=== PATIENT | male | born 1945 | race Caucasian/White ===

== ENCOUNTER → 2017-10-14 10:07 | Outpatient (CLI) | payer MEDICARE, OTHER, SELFPAY ==
--- NOTE | 2017-10-14 10:16 | XR_ITS ---
XR chest 2V HISTORY: ITS.REASON: COUGH ORDERING PHYSICIAN: Jazlyn Schilling PATIENT AGE: 72 years COMPARISON: None available FINDINGS: The cardiomediastinal silhouette and pulmonary vascularity are within normal limits. No lobar consolidation or collapse. There is mild biapical pleural thickening unchanged. There are degenerative changes in the thoracic spine fracture of the left humeral neck. IMPRESSION: No change with no acute finding.
== END ==
PROVIDERS: PCP Nurse Practitioner Family; Visit Provider Nurse Practitioner Family
DX: R05 Cough (principal)
CPT/HCPCS: 71046

== ENCOUNTER 2017-10-14 10:38 | Observation (INO) | payer MEDICARE, OTHER, SELFPAY ==
[2017-10-14] VITALS (8 sets, daily range): BP systolic 108–133; BP diastolic 68–79; PULSE 60–98; RESP 18–20; TEMP 36.6–37.2; O2SAT 90–98; BMI 21.8; BMI 22.3
--- NOTE | 2017-10-14 11:13 | CT_ITS ---
CT head/brain wo con HISTORY: Near syncope ITS.REASON: NEAR SYNCOPAL ORDERING PHYSICIAN: José Miguel Thomas MD PATIENT AGE: 72 years COMPARISON: 06/23/2016 TECHNIQUE: Axial images obtained without contrast. Brain and bone windows reviewed. FINDINGS: No midline shift, mass effect, intracranial hemorrhage, hydrocephalus, or extra-axial fluid collection is evident. There is generalized atrophy with periventricular ischemic gliotic change. The calvarium has an unremarkable appearance. No mastoid effusion. Bilateral maxillary sinus air-fluid levels are present along with mucosal thickening of the ethmoid sinuses... IMPRESSION: 1. No acute intracranial finding. 2. Sinusitis
--- NOTE | 2017-10-14 11:13 | HMH.EDWEAK ---
ED Disposition Clinical Impression: Orthostatic hypotension UTI (urinary tract infection) Qualifiers: Urinary tract infection type: acute cystitis Hematuria presence: without hematuria Qualified Code(s): N30.00 - Acute cystitis without hematuria Disposition: Admitted As Inpatient Condition on Discharge: Fair Time of Disposition: 13:20 - Critical Care Critical Care Time: No Attestation: On 10/14/17, the high probability of a clinically significant, sudden or life threatening deterioration of the following system(s) required my full and direct attention, intervention and personal management. The time I documented below is in addition to time spent performing reported procedures but includes the following listed in this critical care notation. Total Critical Care Time: 60 Vital system(s) involved:: Circulatory Failure My critical care processes included: Assessment & monitoring of V/S, Initial and Re-exams, Data Review/Interpretation, Coordinating Care, Medication Orders and management, Documentation Medical Decision Making - Medical Records Medical records reviewed: Yes: I reviewed the patient's medical records. Vital Signs: 10/14/17 10:40 10/14/17 13:08 10/14/17 13:25 Temperature 98.8 F Temperature Source Oral Pulse Rate [Right Radial] 92 H 88 98 H Respiratory Rate 20 20 20 Blood Pressure [Right Arm] 109/72 115/70 108/73 Blood Pressure Mean [Right Arm] 84 85 84 Blood Pressure Source [Right Arm] Automatic Cuff Automatic Cuff Blood Pressure Position [Right Arm] Sitting Sitting Sitting 02 Sat by Pulse Oximetry 98 98 97 Oxygen Delivery Method Room Air Room Air Room Air - Lab Data Lab results reviewed: Yes: I reviewed the patient's lab results. Lab Results 10/14/17 11:00: WBC 15.0 H, RBC 5.62, Hgb 16.5, Hct 49.9, MCV 88.8, MCH 29.3, MCHC 33.1, RDW 13.5, Plt Count 264, MPV 7.9, Neut % (Auto) 77.8, Lymph % (Auto) 12.8, [place] % (Auto) 7.5, Eos % (Auto) 1.5, Baso % (Auto) 0.4, Neut # (Auto) 11.7 H, Lymph # (Auto) 1.9, [place] # (Auto) 1.1 H, Eos # (Auto) 0.2, Baso # (Auto) 0.1, Total Counted 100, Neutrophils % (Manual) 80 H, Band Neutrophils % 3.0, Lymphocytes % (Manual) 12, Monocytes % (Manual) 5, Platelet Estimate Normal 10/14/17 11:00: Sodium 140, Potassium 3.4 L, Chloride 103, Carbon Dioxide 31, Anion Gap 9.4, BUN 24 H, Creatinine 1.60 H, Estimated Creat Clear 42, Estimated GFR 43 L, Est GFR ( Amer) 52 L, Glucose 111 H, Calcium 8.5, Total Bilirubin 0.8, AST 13 L, ALT 29, Alkaline Phosphatase 112, Total Creatine Kinase 44, CK-MB (CK-2) 0.7, CK-MB (CK-2) Rel Index 1.6, Troponin I < 0.02, Total Protein 6.3 L, Albumin 3.2 L, Globulin 3.1, Albumin/Globulin Ratio 1.0 L 10/14/17 11:00: Lactic Acid 1.5 10/14/17 12:45: Urine Color Yellow, Urine Appearance Clear, Urine pH 7.5, Ur Specific [place] 1.010, Urine Protein Negative, Urine Glucose (UA) Negative, Urine Ketones Negative, Urine Blood Negative, Urine Nitrate Negative, Urine Bilirubin Negative, Urine Urobilinogen 0.2, Ur Leukocyte Esterase 1+ A, Urine WBC 5-10, Urine Bacteria 1+, Hyaline Casts Occasional, Urine Mucus 1+ Result diagrams: 10/14/17 11:00 10/14/17 11:00 Orders (Tests/Meds): ED MEDICATIONS Generic Name Dose Route Start Last Admin Trade Name Promise PRN Reason Stop Dose Admin Allopurinol 100 mg 10/14/17 15:05 10/14/17 16:28 Allopurinol 100mg Tablet PO 11/13/17 15:04 100 mg DAILY MARCELLUS Administration Aspirin 81 mg 10/15/17 09:00 Aspirin 81mg Chewable Tablet PO 11/14/17 08:59 DAILY MARCELLUS Atorvastatin Calcium 40 mg 10/14/17 21:00 10/14/17 21:51 Lipitor 40mg Tablet PO 11/13/17 20:59 40 mg HS MARCELLUS Administration Clopidogrel Bisulfate 75 mg 10/15/17 09:00 Plavix 75mg Tablet PO 11/14/17 08:59 DAILY MARCELLUS Sodium Chloride 1,000 mls @ 50 mls/hr 10/14/17 15:05 10/14/17 15:58 Sod Chlor 0.9% 1000ml Bag IV 11/13/17 15:04 50 mls/hr .Q20H MARCELLUS Administration Levofloxacin/Dextrose 500 mg in 100 mls @ 100
--- NOTE | 2017-10-14 11:16 | ED_ITS ---
ED Disposition Clinical Impression: Orthostatic hypotension UTI (urinary tract infection) Qualifiers: Urinary tract infection type: acute cystitis Hematuria presence: without hematuria Qualified Code(s): N30.00 - Acute cystitis without hematuria Disposition: Admitted As Inpatient Condition on Discharge: Fair Time of Disposition: 13:20 - Critical Care Critical Care Time: No Attestation: On 10/14/17, the high probability of a clinically significant, sudden or life threatening deterioration of the following system(s) required my full and direct attention, intervention and personal management. The time I documented below is in addition to time spent performing reported procedures but includes the following listed in this critical care notation. Total Critical Care Time: 60 Vital system(s) involved:: Circulatory Failure My critical care processes included: Assessment & monitoring of V/S, Initial and Re-exams, Data Review/Interpretation, Coordinating Care, Medication Orders and management, Documentation Medical Decision Making - Medical Records Medical records reviewed: Yes: I reviewed the patient's medical records. Vital Signs: 10/14/17 10:40 10/14/17 13:08 10/14/17 13:25 Temperature 98.8 F Temperature Source Oral Pulse Rate [Right Radial] 92 H 88 98 H Respiratory Rate 20 20 20 Blood Pressure [Right Arm] 109/72 115/70 108/73 Blood Pressure Mean [Right Arm] 84 85 84 Blood Pressure Source [Right Arm] Automatic Cuff Automatic Cuff Blood Pressure Position [Right Arm] Sitting Sitting Sitting 02 Sat by Pulse Oximetry 98 98 97 Oxygen Delivery Method Room Air Room Air Room Air - Lab Data Lab results reviewed: Yes: I reviewed the patient's lab results. Lab Results 10/14/17 11:00: WBC 15.0 H, RBC 5.62, Hgb 16.5, Hct 49.9, MCV 88.8, MCH 29.3, MCHC 33.1, RDW 13.5, Plt Count 264, MPV 7.9, Neut % (Auto) 77.8, Lymph % (Auto) 12.8, [place] % (Auto) 7.5, Eos % (Auto) 1.5, Baso % (Auto) 0.4, Neut # (Auto) 11.7 H, Lymph # (Auto) 1.9, [place] # (Auto) 1.1 H, Eos # (Auto) 0.2, Baso # (Auto ) 0.1, Total Counted 100, Neutrophils % (Manual) 80 H, Band Neutrophils % 3.0, Lymphocytes % (Manual) 12, Monocytes % (Manual) 5, Platelet Estimate Normal 10/14/17 11:00: Sodium 140, Potassium 3.4 L, Chloride 103, Carbon Dioxide 31, Anion Gap 9.4, BUN 24 H, Creatinine 1.60 H, Estimated Creat Clear 42, Estimated GFR 43 L, Est GFR ( Amer) 52 L, Glucose 111 H, Calcium 8.5, Total Bilirubin 0.8, AST 13 L, ALT 29, Alkaline Phosphatase 112, Total Creatine Kinase 44, CK-MB (CK-2) 0.7, CK-MB (CK-2) Rel Index 1.6, Troponin I < 0.02, Total Protein 6.3 L, Albumin 3.2 L, Globulin 3.1, Albumin/Globulin Ratio 1.0 L 10/14/17 11:00: Lactic Acid 1.5 10/14/17 12:45: Urine Color Yellow, Urine Appearance Clear, Urine pH 7.5, Ur Specific [place] 1.010, Urine Protein Negative, Urine Glucose (UA) Negative, Urine Ketones Negative, Urine Blood Negative, Urine Nitrate Negative, Urine Bilirubin Negative, Urine Urobilinogen 0.2, Ur Leukocyte Esterase 1+ A, Urine WBC 5-10, Urine Bacteria 1+, Hyaline Casts Occasional, Urine Mucus 1+ Result diagrams: 10/14/17 11:00 10/14/17 11:00 Orders (Tests/Meds): ED MEDICATIONS Generic Name Dose Route Start Last Admin Trade Name Promise PRN Reason Stop Dose Admin Allopurinol 100 mg 10/14/17 15:05 10/14/17 16:28 Allopurinol 100mg Tablet PO 11/13/17 15:04 100 mg DAILY MARCELLUS Administration Aspirin 81 mg 10/15/17 09:00 Aspirin 81mg Chewable
[2017-10-14 11:30] LABS: Basophils # 0.1 K/mm3 (0-0.2); Basophils % 0.4 % (0.1-2.0); Eosinophils # 0.2 K/mm3 (0.0-0.4); Eosinophils % 1.5 % (0.1-12.0); Hematocrit 49.9 % (42.0-52.0); Hemoglobin 16.5 g/dL (14.1-18.0); Lymphocytes # 1.9 K/mm3 (0.7-4.5); Lymphocytes % 12.8 K/mm3 (10-50); Mean Corpuscular HGB Conc 33.1 g/dL (31.8-35.4); Mean Corpuscular Hemoglobin 29.3 pg (27.0-31.2); Mean Corpuscular Volume 88.8 fl (80-94); Mean Platelet Volume 7.9 fl (7.4-10.4); Monocytes # 1.1 K/mm3 (0.1-1.0); Monocytes % 7.5 % (1.7-9.3); Neutrophils # 11.7 K/mm3 (1.8-7.8); Neutrophils % 77.8 % (37.0-80.0); Platelet Count 264 K/mm3 (142-424); Red Blood Count 5.62 M/mm3 (4.60-6.20); Red Cell Distribution Width 13.5 % (11.5-17.5)
[2017-10-14 11:31] LABS: MANUAL DIFFERENTIAL MANUAL DIFFERENTIAL (MANUAL DIFF)
[2017-10-14 12:01] LABS: Alanine Aminotransferase 29 U/L (12-78); Albumin Level 3.2 gm/dL (3.4-5.0); Alkaline Phosphatase 112 U/L (46-116); Anion Gap 9.4 mEq/L (5-15); Aspartate Amino Transferase 13 U/L (15-37); Bilirubin,Total 0.8 mg/dL (0.2-1.0); Blood Urea Nitrogen 24 mg/dL (7-18); CKMB Relative Index 1.6 U/L (0-4.0); Calcium 8.5 mg/dL (8.5-10.1); Carbon Dioxide 31 mmol/L (21.0-32.0); Chloride 103 mmol/L (98-107); Creatine Kinase 44 U/L (39-308); Creatine Kinase MB 0.7 mg/ml (0.0-3.6); Creatinine Clearance Estimated 42 mL/min (0-300); Estimated Glomerular Filt Rate 43 ml/min (>60); GFR (African American) 52 ML/MIN (>60); Globulin 3.1 gm/dl (1.3-3.2); Glucose 111 mg/dL (74-106); Potassium 3.4 mmoL/L (3.5-5.1); Sodium 140 mmol/L (136-145); Total Protein,Serum 6.3 gm/dL (6.4-8.2); Troponin I < 0.02 ng/ml (0.00-0.06)
[2017-10-14 12:08] LABS: Lymphocytes % 12 % (10-50); Monocytes % 5 % (2-9); Neutrophils % 80 % (42-76); Platelet Estimate Normal; Total Cells Counted 100
[2017-10-14 12:30] LABS: Lactic Acid 1.5 mmol/L (0.4-2.0)
[2017-10-14 12:50] LABS: Microscopic, Urine URINE MICROSCOPIC (MICROSCOPIC)
[2017-10-14 12:51] LABS: Appearance,Urine CLEAR (Clear); Bilirubin,Urine Negative (Negative); Blood, Urine Negative (Negative); Color,Urine YELLOW (Yellow); Glucose,Urine (UA) Negative (Negative); Ketones,Urine Negative (Negative); Leukocyte Esterase,Urine 1+ (Negative); Nitrate,Urine Negative (Negative); PH,Urine 7.5 (5.0-8.5); Protein,Urine Negative (Negative); Urobilinogen,Urine 0.2 EU/dl (0.2)
[2017-10-14 13:04] LABS: Bacteria,Urine 1+ /lpf; Hyaline Casts,Urine Occasional #/lpf (0); Mucus,Urine 1+ /lpf
--- NOTE | 2017-10-14 13:24 | PC.NURSE ---
ORTHOSTATIC BLOOD PRESSURE ASSESSED AT 13:20 SITTING 115/70 HR 96 SUPINE 124/76 HR 92 STANDING 80/52 HR 100 MD MATTSON
--- NOTE | 2017-10-14 18:40 | PC.NURSE ---
72 YEAR OLD WHITE MALE PRESENTED TO THE ER AFTER HAVING A SYNCOPAL EPISODE DURING THE TIME HE WAS GETTING A CHEST X-RAY IN RADIOLOGY. HE WAS EVALUATED AND WAS DIAGNOSED WITH HYPOTENSION AND A UTI. HE WAS ADMITTED TO THE FLOOR AND IV FLUIDS ARE INFUSING ORDERED. LUNG ASSESSMENT REVEALS SCATTERED WHEEZES THROUGHOUT THE UPPER AND LOWER LEFT LUNG. HE STATES HE HAS A PRODUCTIVE COUGH WITH YELLOW SPUTUM. HE STATES HE HAS NEVER HAD A FLU OR PNEUMONIA SHOT, HE WAS EDUCATED ON THESE IMMUNIZATIONS. HE STATES HE CONTINUES TO SMOKE APPROXIMATELY 1/2 PACK OF CIGARETTES A DAY, HE WAS OFFERED A NICOTINE PATCH AND HE STATES HE DOES NOT NEED IT. WILL CONTINUE TO MONITOR. HIRO HERRERA, MSN, RN
--- NOTE | 2017-10-14 19:10 | PC.NURSE ---
PT FULL CODE, REPORT FROM TOM.NISA
[2017-10-15 04:16] VITALS: BP 117/75; PULSE 88; RESP 20; TEMP 36.6; O2SAT 97
--- NOTE | 2017-10-15 07:28 | HMH.PHAVTE ---
[facility] Pharmacy VTE Monitoring - Patient Demographics Admission date: 10/14/17 Report Date: 10/15/17 Time: 07:28 Allergies/Adverse Reactions: Patient Allergies Penicillins [PENICILLINS] Allergy (Severe, Verified 09/14/17 11:21) M-[id number]/THROAT azathioprine [From IMURAN] Allergy (Unknown, Verified 09/14/17 11:21) SKIN BLISTERS Height: 1.78 m Weight: 70.562 kg Patient Problems: Current Active Problems Orthostatic hypotension (Acute) UTI (urinary tract infection) (Acute) - VTE Risk Labs: VTE Related Lab Results Hgb 16.5 g/dL (14.1-18.0) 10/14/17 11:00 Hct 49.9 % (42.0-52.0) 10/14/17 11:00 Plt Count 264 K/mm3 (142-424) 10/14/17 11:00 BUN 24 mg/dL (7-18) H 10/14/17 11:00 Creatinine 1.60 mg/dL (0.70-1.30) H 10/14/17 11:00 Estimated Creat Clear 42 mL/min (0-300) 10/14/17 11:00 Was VTE Risk Assessment Performed: Yes VTE Score: 4 VTE Risk Level: Low Risk - Prophylaxis VTE Prophylaxis Ordered?: Yes Types of VTE Prophylaxis: TEDS Knee High Location of Applied Device: Bilateral Lower Extremeties - VTE Diagnosis Confirmed Treatment or plan recommended: Continue Current Treatment
[2017-10-15 07:38] VITALS: BP 136/85; PULSE 75; RESP 16; TEMP 36.3; O2SAT 99
[2017-10-15 09:20] LABS: Alanine Aminotransferase 20 U/L (12-78); Albumin Level 2.4 gm/dL (3.4-5.0); Albumin/Globulin Ratio 0.9 (1.1-1.8); Alkaline Phosphatase 88 U/L (46-116); Anion Gap 9.1 mEq/L (5-15); Aspartate Amino Transferase 10 U/L (15-37); Bilirubin,Total 0.8 mg/dL (0.2-1.0); Blood Urea Nitrogen 19 mg/dL (7-18); Calcium 7.9 mg/dL (8.5-10.1); Carbon Dioxide 30 mmol/L (21.0-32.0); Chloride 110 mmol/L (98-107); Creatinine Clearance Estimated 50 mL/min (0-300); Creatinine,Serum 1.37 mg/dL (0.70-1.30); Estimated Glomerular Filt Rate 51 ml/min (>60); GFR (African American) 62 ML/MIN (>60); Globulin 2.7 gm/dl (1.3-3.2); Glucose 109 mg/dL (74-106); Potassium 4.1 mmoL/L (3.5-5.1); Sodium 145 mmol/L (136-145); Total Protein,Serum 5.1 gm/dL (6.4-8.2)
[2017-10-15 09:22] LABS: Hematocrit 40.8 % (42.0-52.0); Mean Corpuscular Hemoglobin 29.9 pg (27.0-31.2); Mean Corpuscular Volume 90.6 fl (80-94); Mean Platelet Volume 8.2 fl (7.4-10.4); Platelet Count 214 K/mm3 (142-424); Red Blood Count 4.51 M/mm3 (4.60-6.20); Red Cell Distribution Width 13.6 % (11.5-17.5); White Blood Count 11.2 K/mm3 (4.8-10.8)
[2017-10-15 09:23] LABS: Basophils % 0.3 % (0.1-2.0); Eosinophils % 1.6 % (0.1-12.0); Lymphocytes % 20.2 K/mm3 (10-50); Monocytes % 8.2 % (1.7-9.3); Neutrophils # 7.8 K/mm3 (1.8-7.8); Neutrophils % 69.6 % (37.0-80.0)
[2017-10-15 09:24] LABS: Eosinophils # 0.2 K/mm3 (0.0-0.4); Lymphocytes # 2.3 K/mm3 (0.7-4.5); Monocytes # 0.9 K/mm3 (0.1-1.0)
[2017-10-15 09:27] LABS: Hemoglobin 13.5 g/dL (14.1-18.0)
--- NOTE | 2017-10-15 10:12 | PC.NURSE ---
PT IS RESTING IN BED, NO COMPLAINTS OF DISCOMFORT, VSS. PT STATED WHEN HE CAME IN YESTERDAY HE WAS FEELING REALLY ROUGH BUT TODAY HE STATES HE FEELS REALLY GOOD AND FEELS UP TO GOING HOME. LUNG SOUNDS HAVE SCATTERED WHEEZES, BOWEL SOUNDS NORMAL, TEDS APPLIED. PT STATES HE HAS BEEN AMBULATING AROUND THE ROOM WITH NO PROBLEM. WILL CONTINUE TO MONITOR.
--- NOTE | 2017-10-15 12:17 | HMH.PTEV ---
Physical Therapy Evaluation Rehab PT IP Evaluation Start: 10/15/17 09:12 Freq: ONCE Status: Active Protocol: Document 10/15/17 12:15 PHORNE (Rec: 10/15/17 12:17 PHORNE [id number]) Subjective/History History History 72 yom adm to [facility] with dizziness. Subjective Subjective Pt reports feeling much better this am, no c/o. Rehab PT IP Eval Objective Appearance Patient Behavior Appropriate Cooperative Patient Orientation Person Place Time Difficulty following instructions none Speech Pattern Clear Appropriate Ambulation Patient Able to Ambulate Yes Ambulation Observation IP General Gait Pattern Observation No Deviations/Normal Ambulation Distance (feet) 30 Ambulation Assistive Device None Balance Ability to Arise Able, w/o using arms Sitting Balance Steady, safe Standing Balance Narrow stance w/o support Dynamic Sitting Balance Ability Good Dynamic Standing Balance Ability Good Transfers Bed Transfer Ability Independent Chair Transfer Ability Supervision/Stand by Sit to Stand Bed Transfer Ability Supervision/Stand by Sit to Stand Chair Transfer Ability Supervision/Stand by ROM All Extremities PT ROM Status WFL MMT All Extremities PT MMT WFL Rehab PT IP prob,goals,plan Problems Date of Evaluation: 10/15/17 Discharge Plan PT Discharge Plan Pt is appropriate to return home once medically stable. G -code Required Yes Eval Complexity Eval Charge Codes 61824 - Moderate Complexity G Codes PT Current Status Mobility PT Current Status Modifier CI-At least 1% but less than 20% impaired, limited or restricted PT Goal Status Mobility PT Goal Status Modifer CI-At least 1% but less than 20% impaired, limited or restricted PHYSICIAN CERTIFICATION: I certify the specified therapy services for Jeffery Slater are required, authorized, and reviewed every 30 days.
--- NOTE | 2017-10-15 15:29 | HMH.HPDC ---
General - General Admission date: 10/14/17 Discharge date: 10/15/17 *Admission Date: 10/14/17 *Chief complaint: low bp *History of present illness: 72 yr old male Patient was sent to the hospital for a chest x-ray and while the radiology upon the patient almost passed out, became pale, diaphoretic and dizzy. He was brought to the emergency room for evaluation, where his blood pressure was found to be low, 56/20. Patient was recently diagnosed with pneumonia and he is still on Levaquin at this time. He continues to feel very weak, with poor appetite and decreased oral input.pt admitted for montior of bp and cardiology consult [facility] History I have reviewed the patient's past medical history: Yes Medical History: Reports:: Coronary Artery Disease, Hyperlipidemia, Hypertension, Myocardial Infarction Denies:: Cancer, Diabetes Mellitus Type 1, Diabetes Mellitus Type 2, MRSA Other Medical History: Reports: Arthritis Other Surgeries: Yes: Appendectomy Amputation: No Fractures: No - *Social History Educational Level: Completed High School Smoking Status: Current every day smoker Tobacco Type: cigarettes # Packs/Day (cigarettes): 1 Alcohol Intake: never Substance Use Type: denies use Occupational Status: retired Housing: house Household Members: spouse - Psychiatric History Expresses thoughts of harming self/others: None Suicide Plan Description: No Plan *Family Hx:: Heart Attack, Coronary Artery Disease Review of Systems - Constitutional Denies body ache(s) - Eyes Denies floaters - ENT Denies bleeding gums - *Cardiovascular Denies chest pain at rest, Denies rapid, pounding, or irregular heartbeat - *Respiratory Reports chest congestion, Reports cough - *Gastrointestinal Denies bloating - *Genitourinary Denies urinary frequency, Denies urinary urgency - *Musculoskeletal Denies joint pain - Integumentary/Breasts Denies rash - *Neurologic Reports weakness (generalized), Reports other (dizzy) Exam Vital signs and Labs for Last 24 Hours: Temp Pulse Resp BP Pulse Ox 97.3 F L 75 16 136/85 99 10/15/17 07:38 10/15/17 07:38 10/15/17 07:38 10/15/17 07:38 10/15/17 07:38 Laboratory Results - last 24 hr 10/15/17 08:56: WBC 11.2 H D, RBC 4.51 L, Hgb 13.5 L D, Hct 40.8 L, MCV 90.6, MCH 29.9, MCHC 33.0, RDW 13.6, Plt Count 214, MPV 8.2, Neut % (Auto) 69.6, Lymph % (Auto) 20.2, [place] % (Auto) 8.2, Eos % (Auto) 1.6, Baso % (Auto) 0.3, Neut # (Auto) 7.8, Lymph # (Auto) 2.3, [place] # (Auto) 0.9, Eos # (Auto) 0.2, Baso # (Auto) 0.0 10/15/17 08:56: Sodium 145, Potassium 4.1 D, Chloride 110 H, Carbon Dioxide 30, Anion Gap 9.1, BUN 19 H, Creatinine 1.37 H, Estimated Creat Clear 50, Estimated GFR 51 L, Est GFR ( Amer) 62, Glucose 109 H, Calcium 7.9 L, Total Bilirubin 0.8, AST 10 L, ALT 20 D, Alkaline Phosphatase 88, Total Protein 5.1 L, Albumin 2.4 L D, Globulin 2.7, Albumin/Globulin Ratio 0.9 L I & O for Last 24 hours: Intake & Output 10/13/17 10/14/17 10/15/17 10/16/17 11:59 11:59 11:59 11:59 Intake Total 3152 / 3152 Output Total 400 / 400 Balance 2752 / 2752 Weight 155 lb 9 oz - Constitutional no acute distress - *Routine HEENT Exam Head: Present: normocephalic Eye: Present: PERRL ENT: Present: mucous membranes moist - *Routine Neck Exam Present: supple, full ROM - *Routine Respiratory Exam Present: wheezes - *Routine Cardiovascular Exam Present: RRR - *Routine Abdominal Exam Present: soft - *Routine Skin Exam Present: intact - *Routine Neurological Exam Present: alert, oriented X3, CN II-XII intact - Routine Psychiatric Exam Present: normal affect Hospital Course Hospital Course: ct head IMPRESSION: 1. No acute intracranial finding. 2. Sinusitis cardiology consult- see note today pt states he feels better will dc home with cardiology recommendations Results Labs on day of discharge: Labs from last 24 hours 10/15/17 10/15/17 08
--- NOTE | 2017-10-15 15:32 | P.SWB_ITS ---
General - General Admission date: 10/14/17 Discharge date: 10/15/17 *Admission Date: 10/14/17 *Chief complaint: low bp *History of present illness: 72 yr old male Patient was sent to the hospital for a chest x-ray and while the radiology upon the patient almost passed out, became pale, diaphoretic and dizzy. He was brought to the emergency room for evaluation, where his blood pressure was found to be low, 56/20. Patient was recently diagnosed with pneumonia and he is still on Levaquin at this time. He continues to feel very weak, with poor appetite and decreased oral input.pt admitted for montior of bp and cardiology consult [facility] History I have reviewed the patient's past medical history: Yes Medical History: Reports:: Coronary Artery Disease, Hyperlipidemia, Hypertension , Myocardial Infarction Denies:: Cancer, Diabetes Mellitus Type 1, Diabetes Mellitus Type 2, MRSA Other Medical History: Reports: Arthritis Other Surgeries: Yes: Appendectomy Amputation: No Fractures: No - *Social History Educational Level: Completed High School Smoking Status: Current every day smoker Tobacco Type: cigarettes # Packs/Day (cigarettes): 1 Alcohol Intake: never Substance Use Type: denies use Occupational Status: retired Housing: house Household Members: spouse - Psychiatric History Expresses thoughts of harming self/others: None Suicide Plan Description: No Plan *Family Hx:: Heart Attack, Coronary Artery Disease Review of Systems - Constitutional Denies body ache(s) - Eyes Denies floaters - ENT Denies bleeding gums - *Cardiovascular Denies chest pain at rest, Denies rapid, pounding, or irregular heartbeat - *Respiratory Reports chest congestion, Reports cough - *Gastrointestinal Denies bloating - *Genitourinary Denies urinary frequency, Denies urinary urgency - *Musculoskeletal Denies joint pain - Integumentary/Breasts Denies rash - *Neurologic Reports weakness (generalized), Reports other (dizzy) Exam Vital signs and Labs for Last 24 Hours: Temp Pulse Resp BP Pulse Ox 97.3 F L 75 16 136/85 99 10/15/17 07:38 10/15/17 07:38 10/15/17 07:38 10/15/17 07:38 10/15/17 07:38 Laboratory Results - last 24 hr 10/15/17 08:56: WBC 11.2 H D, RBC 4.51 L, Hgb 13.5 L D, Hct 40.8 L, MCV 90.6, MCH 29.9, MCHC 33.0, RDW 13.6, Plt Count 214, MPV 8.2, Neut % (Auto) 69.6, Lymph % (Auto) 20.2, [place] % (Auto) 8.2, Eos % (Auto) 1.6, Baso % (Auto) 0.3, Neut # (Auto) 7.8, Lymph # (Auto) 2.3, [place] # (Auto) 0.9, Eos # (Auto) 0.2, Baso # (Auto) 0.0 10/15/17 08:56: Sodium 145, Potassium 4.1 D, Chloride 110 H, Carbon Dioxide 30 , Anion Gap 9.1, BUN 19 H, Creatinine 1.37 H, Estimated Creat Clear 50, Estimated GFR 51 L, Est GFR ( Amer) 62, Glucose 109 H, Calcium 7.9 L, Total Bilirubin 0.8, AST 10 L, ALT 20 D, Alkaline Phosphatase 88, Total Protein 5.1 L, Albumin 2.4 L D, Globulin 2.7, Albumin/Globulin Ratio 0.9 L I & O for Last 24 hours: Intake & Output 10/13/17 10/14/17 10/15/17 10/16/17 11:59 11:59 11:59 11:59 Intake Total 3152 / 3152 Output Total 400 / 400 Balance 2752 / 2752 Weight 155 lb 9 oz - Constitutional no acute distress - *Routine HEENT Exam Head: Present: normocephalic Eye: Present: PERRL ENT: Present: mucous membranes moist - *Routine Neck Exam Present: supple, full ROM - *Routine Respiratory Exam Present: wheezes
[2017-10-15 16:00] VITALS: BP 136/78; PULSE 86; RESP 16; TEMP 36.8; O2SAT 100
--- NOTE | 2017-10-15 16:50 | PC.NURSE ---
PT IS BEING DISCHARGED HOME WITH A 48 HOUR HOLTER MONITOR. PT UNDERSTOOD HE NEEDED TO CALL FOR A 1 WEEK F/U WITH [facility] AND HE NEEDED TO F/U WITH JENNY'S OFFICE ON WEDNESDAY. PT WAS TOLD TO HOLD BP MEDICATION FOR NOW.
== END 2017-10-15 17:00 | disposition home or self-care (01) ==
LOC: ER 11:16 → 2ND 15:30
PROVIDERS: Admitting Provider Emergency Medicine; Emergency Provider Emergency Medicine; PCP Nurse Practitioner Family; Visit Provider Emergency Medicine
DX: I95.1 Orthostatic hypotension (principal); N30.00 Acute cystitis without hematuria; I25.10 Atherosclerotic heart disease of native coronary artery without angina pectoris; E78.5 Hyperlipidemia, unspecified; I10 Essential (primary) hypertension; F17.210 Nicotine dependence, cigarettes, uncomplicated; J18.9 Pneumonia, unspecified organism; Z79.02 Long term (current) use of antithrombotics/antiplatelets; Z79.82 Long term (current) use of aspirin; Z79.899 Other long term (current) drug therapy; Z88.0 Allergy status to penicillin; Z88.8 Allergy status to other drugs, medicaments and biological substances; Z82.49 Family history of ischemic heart disease and other diseases of the circulatory system
CPT/HCPCS: 70450; 71046; 80053; 81001; 82550; 82553; 83605; 84484; 85007; 85025; 87040; 87086; 93005; 93225; 96365; 96366; 97162; 99281; G0378; J1956

== ENCOUNTER 2017-10-27 14:25 | Emergency (ER) | payer MEDICARE, OTHER, SELFPAY ==
[2017-10-27 14:26] VITALS: BP 124/87; PULSE 91; RESP 20; TEMP 36.6; O2SAT 100; BMI 22.2
--- NOTE | 2017-10-27 14:44 | CT_ITS ---
CT abdomen pelvis wo con CLINICAL INDICATION: Abdominal pain, unable to urinate ITS.REASON: abd pain ORDERING PHYSICIAN: Troy Luna MD PATIENT AGE: 72 years COMPARISON: 07/22/2016 TECHNIQUE: Axial images obtained with sagittal and coronal reformats. PROCEDURE: Oral Contrast: None IV Contrast: None . FINDINGS: No acute finding in the lung bases. Liver, spleen, adrenal glands, and pancreas have an unremarkable unenhanced CT appearance. There is moderate distention of the urinary bladder half of the urinary bladder extending above the level the umbilicus by approximately 2 cm. There is mild hydronephrosis and hydroureter bilaterally. There are nonobstructing punctate bilateral renal calculi measuring up to 4 mm in the upper pole on the right and 3 mm in the mid polar region on the left. No intestinal obstruction or free air. There has been prior appendectomy 5 report. No focal inflammatory change. No evidence of diverticulitis. There is mild amount retained colonic feces. Degenerative changes are present in the lumbar spine. Epidural gas noted in the right L4-5 foramen activity within an extruded disc. IMPRESSION: 1. Moderate to severe distention of the urinary bladder with bilateral hydroureteronephrosis. 2. Punctate nonobstructing bilateral renal calculi. 3. Gas within the neural foramen on the right at L4-5 and could be within an extruded disc
[2017-10-27 15:11] LABS: Microscopic, Urine URINE MICROSCOPIC (MICROSCOPIC)
[2017-10-27 15:14] LABS: Appearance,Urine CLEAR (Clear); Bilirubin,Urine Negative (Negative); Blood, Urine TRACE-I (Negative); Color,Urine YELLOW (Yellow); Glucose,Urine (UA) Negative (Negative); Ketones,Urine Negative (Negative); Leukocyte Esterase,Urine TRACE (Negative); Nitrate,Urine Negative (Negative); Protein,Urine Negative (Negative); Urobilinogen,Urine 0.2 EU/dl (0.2)
[2017-10-27 15:15] LABS: Basophils % 0.3 % (0.1-2.0); Eosinophils # 0.4 K/mm3 (0.0-0.4); Eosinophils % 6.6 % (0.1-12.0); Hematocrit 40.3 % (42.0-52.0); Hemoglobin 13.4 g/dL (14.1-18.0); Lymphocytes # 1.4 K/mm3 (0.7-4.5); Lymphocytes % 23.5 K/mm3 (10-50); Mean Corpuscular HGB Conc 33.2 g/dL (31.8-35.4); Mean Corpuscular Hemoglobin 29.2 pg (27.0-31.2); Mean Platelet Volume 8.6 fl (7.4-10.4); Monocytes # 0.4 K/mm3 (0.1-1.0); Monocytes % 6.5 % (1.7-9.3); Neutrophils # 3.8 K/mm3 (1.8-7.8); Neutrophils % 63.1 % (37.0-80.0); Platelet Count 226 K/mm3 (142-424); Red Blood Count 4.58 M/mm3 (4.60-6.20); Red Cell Distribution Width 13.4 % (11.5-17.5)
[2017-10-27 15:32] LABS: Alanine Aminotransferase 20 U/L (12-78); Albumin Level 2.8 gm/dL (3.4-5.0); Albumin/Globulin Ratio 0.7 (1.1-1.8); Alkaline Phosphatase 104 U/L (46-116); Anion Gap 9.6 mEq/L (5-15); Aspartate Amino Transferase 11 U/L (15-37); Bilirubin,Total 0.3 mg/dL (0.2-1.0); Blood Urea Nitrogen 16 mg/dL (7-18); Calcium 8.4 mg/dL (8.5-10.1); Carbon Dioxide 29 mmol/L (21.0-32.0); Chloride 106 mmol/L (98-107); Creatinine Clearance Estimated 40 mL/min (0-300); Creatinine,Serum 1.72 mg/dL (0.70-1.30); Estimated Glomerular Filt Rate 40 ml/min (>60); GFR (African American) 48 ML/MIN (>60); Globulin 4.1 gm/dl (1.3-3.2); Glucose 112 mg/dL (74-106); Potassium 3.6 mmoL/L (3.5-5.1); Sodium 141 mmol/L (136-145); Total Protein,Serum 6.9 gm/dL (6.4-8.2)
[2017-10-27 15:41] LABS: Bacteria,Urine Trace /lpf; RBC,Urine Occasional #/hpf (0-3); Squamous Epithelial Cell,Urine Occasional #/hpf (0-5); WBC,Urine Occasional #/hpf (0-3)
--- NOTE | 2017-10-27 16:06 | HMH.EDGENADL ---
ED Disposition Clinical Impression: Acute urinary retention, Balanitis Disposition: Home, Self-Care Condition on Discharge: Good Instructions: How to Care for Your Polo Catheter -- Male, DI for Urinary Retention in Men, DI for Balanitis Additional Instructions: Keep catheter in until seen by urologist. Call Dr. Edwards or Jarret tomorrow and set up an appointment to be seen within 1 week. Prescriptions: Clotrimazole [Lotrimin 1% Cream 15gm tube] 1 applic TOPICAL TID #30 cream..g. Referrals: Jazlyn Schilling APRN [Primary Care Provider] - Sushant Edwards MD [Staff Physician] - Albino Wheat MD [Staff Physician] - - Critical Care Critical Care Time: No Attestation: On 10/27/17, the high probability of a clinically significant, sudden or life threatening deterioration of the following system(s) required my full and direct attention, intervention and personal management. The time I documented below is in addition to time spent performing reported procedures but includes the following listed in this critical care notation. Medical Decision Making Vital Signs: 10/27/17 14:26 10/27/17 16:38 Temperature 97.8 F Temperature Source Oral Pulse Rate [Right Radial] 91 H 79 Respiratory Rate 20 18 Blood Pressure [Right Arm] 124/87 126/78 Blood Pressure Mean [Right Arm] 99 94 Blood Pressure Source [Right Arm] Automatic Cuff Automatic Cuff Blood Pressure Position [Right Arm] Supine Sitting 02 Sat by Pulse Oximetry 100 99 Oxygen Delivery Method Room Air Room Air - Lab Data Lab Results 10/27/17 15:00: Urine Color Yellow, Urine Appearance Clear, Urine pH 6.0, Ur Specific [place] 1.020, Urine Protein Negative, Urine Glucose (UA) Negative, Urine Ketones Negative, Urine Blood Trace-i, Urine Nitrate Negative, Urine Bilirubin Negative, Urine Urobilinogen 0.2, Ur Leukocyte Esterase Trace, Urine RBC Occasional, Urine WBC Occasional, Ur Squamous Epith Cells Occasional, Urine Bacteria Trace 10/27/17 15:00: WBC 6.0, RBC 4.58 L, Hgb 13.4 L, Hct 40.3 L, MCV 88.0, MCH 29.2, MCHC 33.2, RDW 13.4, Plt Count 226, MPV 8.6, Neut % (Auto) 63.1, Lymph % (Auto) 23.5, [place] % (Auto) 6.5, Eos % (Auto) 6.6, Baso % (Auto) 0.3, Neut # (Auto) 3.8, Lymph # (Auto) 1.4, [place] # (Auto) 0.4, Eos # (Auto) 0.4, Baso # (Auto) 0.0 10/27/17 15:00: Sodium 141, Potassium 3.6, Chloride 106, Carbon Dioxide 29, Anion Gap 9.6, BUN 16, Creatinine 1.72 H, Estimated Creat Clear 40, Estimated GFR 40 L, Est GFR ( Amer) 48 L, Glucose 112 H, Calcium 8.4 L, Total Bilirubin 0.3, AST 11 L, ALT 20, Alkaline Phosphatase 104, Total Protein 6.9 D, Albumin 2.8 L, Globulin 4.1 H, Albumin/Globulin Ratio 0.7 L Result diagrams: 10/27/17 15:00 10/27/17 15:00 Orders (Tests/Meds): ORDERS Category Date Time Status PSA Total+% Free Routine Lab 10/27/17 15:00 Received - Wong Inquiry Pt receiving controlled substance: No Medical Decision Making Narrative: Patient symptoms resolved with placement of Polo catheter. General Adult HPI - General Chief complaint: Abdominal Pain Stated complaint: can't urinate Mode of Arrival: Ambulatory Limitations: No Limitations Description of Symptoms (Recalled from ER Triage Doc. by RN): pt has not been able to urinate except for a dribble for over a week.abd distended and very firm , states he has been getting confused. pt d/c from hosp a week ago for hypotension. - History of Present Illness HPI narrative: The patient is brought in by his . She says he was admitted to the hospital here a little over week ago for syncopal episode while getting an outpatient chest x-ray for possible pneumonia. After discharge she says that he has been acting delirious at night. Also urinating every few minutes at night and complaining of some lower abdominal discomfort. Family has made him an appointment to see Dr. Wheat sometime in November. However, urinary symptoms and lower abdominal pain have worsened so she brings him in fo
[2017-10-27 16:38] VITALS: BP 126/78; PULSE 79; RESP 18; O2SAT 99
[2017-10-27 18:58] VITALS: BP 134/91; PULSE 89; RESP 18; TEMP 36.8
[2017-10-29 08:14] LABS: PSA, Free 0.71 ng/mL; Prostate Specific Ag 5.4 ng/mL (0.0-4.0)
== END 2017-10-27 18:58 | disposition home or self-care (01) ==
PROVIDERS: Emergency Provider Emergency Medicine; PCP Nurse Practitioner Family
DX: N48.1 Balanitis (principal); I95.1 Orthostatic hypotension; Z95.5 Presence of coronary angioplasty implant and graft; I25.10 Atherosclerotic heart disease of native coronary artery without angina pectoris; I10 Essential (primary) hypertension; E78.5 Hyperlipidemia, unspecified; I25.2 Old myocardial infarction; Z72.0 Tobacco use; Z79.899 Other long term (current) drug therapy; Z88.0 Allergy status to penicillin
CPT/HCPCS: 74176; 80053; 81001; 84153; 84154; 85025; 99284

== ENCOUNTER → 2017-11-01 08:31 | Outpatient (CLI) | payer MEDICARE, OTHER, SELFPAY ==
--- NOTE | 2017-11-01 08:33 | MR_ITS ---
MR head/brain wo con Ordering Physician: Jazlyn Schilling HISTORY: ITS.REASON: ALTERED MENTAL STATUS : 72 years: Male Dizziness for several years has gotten worse. Worse when he stands up. Near syncope. But does not pass out TECHNIQUE: : Noncontrast Multiplanar FLAIR, T1, T2 weighted images along with axial diffusion/ADC imaging performed on 1.5 T. Siemens, MRI. ) COMPARISON :Previous CT head October 14, 2017 FINDINGS . Normal anatomy. The cranial cervical junction is normal. Sella normal. Basal cisterns appear satisfactory. Ventricles normal size and matches the degree of cerebral atrophy. No territorial infarct. Mild diffuse cerebral atrophy. No extra-axial collection. No mass lesion. . A few tiny high signal deep white matter foci seen on the sensitive FLAIR images, mainly subcortical deep white matter. There is also a a rim of high signal surrounds the lateral ventricles most evident towards anterior horn-this in part reflect aging changes,, but also may reflect minor small vessel ischemic features along periventricular regions... Note is also made of scattered generous perivascular spaces. Basically normal variant although can reflect underlying hypertension.. For example small high signal T2 focus at right cerebral peduncle. And to lesser degree floor basal ganglia.. No associated gliosis. The posterior fossa appears normal. The CP angles clear. The cranial nerve VII and VIII appear satisfactory on this noncontrast study. Mastoid air cells unremarkable. Cerebellum unremarkable. Orbits unremarkable.. The paranasal sinuses are fairly clear. Only note minimal mucosal thickening at the medial superior right and left maxillary sinus. Only borderline mucosal thickening at a few of ethmoid air cells.. Survey images and [place] are grossly unremarkable on this routine, standard MR brain. Patent right posterior taking artery incidentally noted IMPRESSION: 1. Minor observations . No prominent findings. No acute findings 2.. Kvan-rd-tosnjsvs Cerebral atrophy. 3. Minimal chronic small vessel deep white matter ischemic foci & changes at cerebral hemispheres, . 4. No territorial infarct. No mass lesion. No extra-axial collection. 5. Regarding dizziness: Posterior fossa with no significant findings. CP angles clear.
--- NOTE | 2017-11-01 09:33 | CI_ITS ---
Cerebrovascular Exam Indications: 433.10 Occlusion/stenosis of carotid artery without cerebral infarction. 780.2 Syncope and collapse. 780.4 Dizziness and giddiness. IMPRESSIONS 1. The bilateral vertebral arteries are patent with normal antegrade flow. 2. Study suggests less than 20% stenosis involving the right internal carotid artery. 3. Study suggests 50-69% stenosis involving the left internal carotid artery. No change from the study of 12-May-2017. Carotid duplex study. Complete study and Doppler flow study including spectral analysis, color and [place]ckee scale imaging. Location: Vascular laboratory. Patient status: Outpatient. Tables: Arterial flow: + +--------+--------+ Location V sys V ed + +--------+--------+ Right CCA - proximal 63.6cm/s 17.3cm/s + +--------+--------+ Right CCA - distal 49.5cm/s 16.5cm/s + +--------+--------+ Right ECA 73.9cm/s -------- + +--------+--------+ Right ICA - proximal 40.1cm/s 16.5cm/s + +--------+--------+ Right ICA - mid 87.2cm/s 37.7cm/s + +--------+--------+ Right ICA - distal 102cm/s 39.3cm/s + +--------+--------+ Right vertebral 47.9cm/s -------- + +--------+--------+ Left CCA - proximal 63.6cm/s 18.9cm/s + +--------+--------+ Left CCA - distal 49.5cm/s 13.4cm/s + +--------+--------+ Left ECA 83.3cm/s -------- + +--------+--------+ Left ICA - proximal 141cm/s 57.4cm/s + +--------+--------+ Left ICA - mid 113cm/s 40.1cm/s + +--------+--------+ Left ICA - distal 80.9cm/s 24.4cm/s + +--------+--------+ Left vertebral 34.6cm/s -------- + +--------+--------+ Velocity ratios: + + + + + + Right, V sys Right, V ed Left, V sys Left, V ed + + + + + + Max ICA/dist CCA 2.06 2.38 2.85 4.28 + + + + + + Electronically signed by: Troy Romero [id number]
== END ==
PROVIDERS: PCP Nurse Practitioner Family; Visit Provider Nurse Practitioner Family
DX: R55 Syncope and collapse (principal); R40.1 Stupor
CPT/HCPCS: 70551; 93880

== ENCOUNTER → 2017-11-25 15:14 | Outpatient (CLI) | payer MEDICARE, OTHER, SELFPAY ==
[2017-11-25 16:34] LABS: Thyroid Stimulating Hormone 4.57 uIU/ml (0.358-3.740)
[2017-11-27 18:36] LABS: Rapid Plasma Reagin Ab Titer Non Reactive (NonRea<1:1)
[2017-11-27 18:36] LABS: Folate 6.7 ng/mL (>3.0); Vitamin B12 307 pg/mL (232-1245); Vitamin D 25 Hydroxy 9.9 ng/mL (30.0-100.0)
[2017-11-30 06:29] LABS: Vitamin B1 124.6 nmol/L (66.5-200.0)
== END ==
PROVIDERS: PCP Nurse Practitioner Family; Visit Provider Nurse Practitioner Family
DX: R41.3 Other amnesia (principal)
CPT/HCPCS: 36415; 82607; 82652; 82746; 84425; 84443; 86592

== ENCOUNTER 2017-12-04 10:09 | Emergency (ER) | payer MEDICARE, OTHER, SELFPAY ==
[2017-12-04 10:09] VITALS: BP 135/88; PULSE 84; RESP 98; TEMP 36.7; O2SAT 98; BMI 22.7
[2017-12-04 10:33] LABS: Microscopic, Urine URINE MICROSCOPIC (MICROSCOPIC)
[2017-12-04 10:36] LABS: Appearance,Urine TURBID (Clear); Bilirubin,Urine Negative (Negative); Blood, Urine 3+ (Negative); Color,Urine ORANGE (Yellow); Glucose,Urine (UA) Negative (Negative); Ketones,Urine Negative (Negative); Leukocyte Esterase,Urine TRACE (Negative); Nitrate,Urine Negative (Negative); Protein,Urine 2+ (Negative); Urobilinogen,Urine 0.2 EU/dl (0.2)
[2017-12-04 10:39] VITALS: BP 129/87; PULSE 90; RESP 18; O2SAT 97
[2017-12-04 10:43] LABS: Bacteria,Urine Trace /lpf; RBC,Urine 20-50 #/hpf (0-3); Squamous Epithelial Cell,Urine Occasional #/hpf (0-5); WBC,Urine Occasional #/hpf (0-3)
--- NOTE | 2017-12-04 10:56 | PC.NURSE ---
PAGES DR LIN AT THIS TIME
--- NOTE | 2017-12-04 10:58 | HMH.EDUROGM ---
ED Disposition Clinical Impression: Urinary retention, S/P TURP, Tobacco use disorder, CAD (coronary artery disease), Encounter for aspirin therapy Disposition: Home, Self-Care Condition on Discharge: Fair Instructions: DI for Urinary Tract Infection (UTI), DI for Urinary Tract Infection in Children Additional Instructions: 1- drink plenty of water. 2- empty leg bag q 6 hours or as needed. 3- start abx. 4- call Dr Wheat's office for follow up on Wednesday. 5- if fever, vomiting, or worse pain return to the ED ornelas re evaluation. Prescriptions: Nitrofurantoin Monohyd/M-Cryst [Macrobid 100 mg Capsule] 100 mg PO DAILY #7 cap Referrals: Jazlyn Schilling APRN [Primary Care Provider] - - Critical Care Critical Care Time: No Attestation: On 12/04/17, the high probability of a clinically significant, sudden or life threatening deterioration of the following system(s) required my full and direct attention, intervention and personal management. The time I documented below is in addition to time spent performing reported procedures but includes the following listed in this critical care notation. Medical Decision Making - Wong Inquiry Pt receiving controlled substance: No Wong was queried for this patient: No Vital Signs: 12/04/17 10:09 Temperature 98.1 F Temperature Source Oral Pulse Rate [Right Brachial] 84 Respiratory Rate 98 H Blood Pressure [Right Arm] 135/88 Blood Pressure Mean [Right Arm] 103 Blood Pressure Source [Right Arm] Automatic Cuff Blood Pressure Position [Right Arm] Sitting 02 Sat by Pulse Oximetry 98 Oxygen Delivery Method Room Air - Lab Data Lab Results 12/04/17 10:30: Urine Color [place], Urine Appearance Turbid, Urine pH 7.0, Ur Specific [place] 1.020, Urine Protein 2+, Urine Glucose (UA) Negative, Urine Ketones Negative, Urine Blood 3+, Urine Nitrate Negative, Urine Bilirubin Negative, Urine Urobilinogen 0.2, Ur Leukocyte Esterase Trace, Urine RBC 20-50, Urine WBC Occasional, Ur Squamous Epith Cells Occasional, Urine Bacteria Trace Medical Decision Narrative: The patient had marked relief after Polo catheter insertion. I called Dr. Wheat his urologist and spoke with Dr. tam the on-call surgeon. Who recommended the patient start on antibiotics and call the office in the morning to obtain a follow-up within 48 hours for catheter removal. I spoke with the patient about staying off the aspirin until the catheter is removed within the next 48 hours as planned. I advised the patient start antibiotics as soon as. The patient will observe for fever nausea vomiting or worse pain to return for evaluation. Male Urogenital HPI - General Chief complaint: Urogenital-Male Stated complaint: Can't urniate Time Seen by Provider: 12/04/17 10:30 Mode of Arrival: Wheelchair Limitations: No Limitations Description of Symptoms (Recalled from ER Triage Doc. by RN): Pt reports unable to urinate since 10pm lastnight. Pt reports had surgery on his prostate on 12/02/17 to shave down his prostate r/t it being enlarged. - History of Present Illness HPI Narrative: 9 years old white male who is 48 hours post TURP. Last time he urinated was at 10:30 PM, he is unable to urinate since 3:30 in the morning. He presented to the ED with a suprapubic pain that is rated 100/10, a Polo cath was immediately inserted with relief of the pain 2/10. Per the patient expression. He denies having fever or chills nausea or vomiting or flank pain. The patient is a status post coronary artery disease and stenting more than 1 year ago, and he is off his aspirin for the past 72 hours, he should resume his aspirin in 2 more the. Onset (ago): hour(s) (7 hours.) Duration: constant Location: abdomen (Suprapubic.) Severity scale (1-10): >10 Quality: dull Relieving factors: none Exacerbating factors: other (External suprapubic pressure. ) recent surgery (TURP surgery on 12/02/17. ) Reports: denies other symptoms
--- NOTE | 2017-12-04 11:01 | ED_ITS ---
ED Disposition Clinical Impression: Urinary retention, S/P TURP, Tobacco use disorder, CAD (coronary artery disease ), Encounter for aspirin therapy Disposition: Home, Self-Care Condition on Discharge: Fair Instructions: DI for Urinary Tract Infection (UTI), DI for Urinary Tract Infection in Children Additional Instructions: 1- drink plenty of water. 2- empty leg bag q 6 hours or as needed. 3- start abx. 4- call Dr Wheat's office for follow up on Wednesday. 5- if fever, vomiting, or worse pain return to the ED ornelas re evaluation. Prescriptions: Nitrofurantoin Monohyd/M-Cryst [Macrobid 100 mg Capsule] 100 mg PO DAILY #7 cap Referrals: Jazlyn Schilling APRN [Primary Care Provider] - - Critical Care Critical Care Time: No Attestation: On 12/04/17, the high probability of a clinically significant, sudden or life threatening deterioration of the following system(s) required my full and direct attention, intervention and personal management. The time I documented below is in addition to time spent performing reported procedures but includes the following listed in this critical care notation. Medical Decision Making - Wong Inquiry Pt receiving controlled substance: No Wong was queried for this patient: No Vital Signs: 12/04/17 10:09 Temperature 98.1 F Temperature Source Oral Pulse Rate [Right Brachial] 84 Respiratory Rate 98 H Blood Pressure [Right Arm] 135/88 Blood Pressure Mean [Right Arm] 103 Blood Pressure Source [Right Arm] Automatic Cuff Blood Pressure Position [Right Arm] Sitting 02 Sat by Pulse Oximetry 98 Oxygen Delivery Method Room Air - Lab Data Lab Results 12/04/17 10:30: Urine Color [place], Urine Appearance Turbid, Urine pH 7.0, Ur Specific [place] 1.020, Urine Protein 2+, Urine Glucose (UA) Negative, Urine Ketones Negative, Urine Blood 3+, Urine Nitrate Negative, Urine Bilirubin Negative, Urine Urobilinogen 0.2, Ur Leukocyte Esterase Trace, Urine RBC 20-50, Urine WBC Occasional, Ur Squamous Epith Cells Occasional, Urine Bacteria Trace Medical Decision Narrative: The patient had marked relief after Polo catheter insertion. I called Dr. Wheat his urologist and spoke with Dr. tam the on-call surgeon. Who recommended the patient start on antibiotics and call the office in the morning to obtain a follow-up within 48 hours for catheter removal. I spoke with the patient about staying off the aspirin until the catheter is removed within the next 48 hours as planned. I advised the patient start antibiotics as soon as. The patient will observe for fever nausea vomiting or worse pain to return for evaluation. Male Urogenital HPI - General Chief complaint: Urogenital-Male Stated complaint: Can't urniate Time Seen by Provider: 12/04/17 10:30 Mode of Arrival: Wheelchair Limitations: No Limitations Description of Symptoms (Recalled from ER Triage Doc. by RN): Pt reports unable to urinate since 10pm lastnight. Pt reports had surgery on his prostate on 12/02 to shave down his prostate r/t it being enlarged. - History of Present Illness HPI Narrative: 9 years old white male who is 48 hours post TURP. Last time he urinated was at 10:30 PM, he is unable to urinate since 3:30 in the morning. He presented to the ED with a suprapubic pain that is rated 100/10, a Polo cath was immediately inserted with relief of the pain 2/10. Per the patient expression. He denies having fever or chills nausea or vomi
[2017-12-04 11:28] VITALS: BP 123/80; PULSE 90; RESP 16; TEMP 36.8; O2SAT 94
--- NOTE | 2017-12-04 11:32 | PC.NURSE ---
schultz catheter bag empitied, leg bag placed on L leg.
== END 2017-12-04 11:30 | disposition home or self-care (01) ==
PROVIDERS: Emergency Provider Emergency Medicine; PCP Nurse Practitioner Family
DX: N40.1 Benign prostatic hyperplasia with lower urinary tract symptoms (principal); R33.8 Other retention of urine; I10 Essential (primary) hypertension; I25.10 Atherosclerotic heart disease of native coronary artery without angina pectoris; F17.210 Nicotine dependence, cigarettes, uncomplicated; Z79.82 Long term (current) use of aspirin; Z88.0 Allergy status to penicillin; E78.5 Hyperlipidemia, unspecified
CPT/HCPCS: 81001; 99283

== ENCOUNTER → 2018-02-22 12:59 | Outpatient (CLI) | payer MEDICARE, OTHER, SELFPAY ==
[2018-02-22 13:39] LABS: Basophils # 0.1 K/mm3 (0-0.2); Basophils % 0.6 % (0.1-2.0); Eosinophils # 0.5 K/mm3 (0.0-0.4); Eosinophils % 5.8 % (0.1-12.0); Hematocrit 52.1 % (42.0-52.0); Hemoglobin 16.3 g/dL (14.1-18.0); Lymphocytes # 2.1 K/mm3 (0.7-4.5); Lymphocytes % 26.3 K/mm3 (10-50); Mean Corpuscular HGB Conc 31.3 g/dL (31.8-35.4); Mean Corpuscular Hemoglobin 28.4 pg (27.0-31.2); Mean Corpuscular Volume 90.5 fl (80-94); Mean Platelet Volume 8.7 fl (7.4-10.4); Monocytes # 0.5 K/mm3 (0.1-1.0); Monocytes % 6.7 % (1.7-9.3); Neutrophils # 4.8 K/mm3 (1.8-7.8); Neutrophils % 60.5 % (37.0-80.0); Platelet Count 212 K/mm3 (142-424); Red Blood Count 5.76 M/mm3 (4.60-6.20); Red Cell Distribution Width 14.1 % (11.5-17.5); White Blood Count 7.9 K/mm3 (4.8-10.8)
[2018-02-22 17:07] LABS: Anion Gap 11.2 mEq/L (5-15); Blood Urea Nitrogen 12 mg/dL (7-18); Calcium 9.3 mg/dL (8.5-10.1); Carbon Dioxide 30 mmol/L (21.0-32.0); Chloride 104 mmol/L (98-107); Creatinine,Serum 1.61 mg/dL (0.70-1.30); Estimated Glomerular Filt Rate 43 ml/min (>60); GFR (African American) 52 ML/MIN (>60); Glucose 105 mg/dL (74-106); Potassium 4.2 mmoL/L (3.5-5.1); Sodium 141 mmol/L (136-145)
== END ==
PROVIDERS: PCP Nurse Practitioner Family; Visit Provider Physician Assistant
DX: I25.10 Atherosclerotic heart disease of native coronary artery without angina pectoris (principal); I49.3 Ventricular premature depolarization; R00.2 Palpitations; N18.3 Chronic kidney disease, stage 3 (moderate); E78.4 Other hyperlipidemia; Z95.5 Presence of coronary angioplasty implant and graft
CPT/HCPCS: 36415; 80048; 83735; 85025; 93225; 93226

== ENCOUNTER → 2018-03-04 09:01 | Outpatient (CLI) | payer MEDICARE, OTHER, SELFPAY ==
[2018-03-04 14:23] LABS: Anion Gap 11.6 mEq/L (5-15); Blood Urea Nitrogen 15 mg/dL (7-18); Calcium 9.8 mg/dL (8.5-10.1); Carbon Dioxide 30 mmol/L (21.0-32.0); Chloride 103 mmol/L (98-107); Creatinine,Serum 1.58 mg/dL (0.70-1.30); Estimated Glomerular Filt Rate 44 ml/min (>60); GFR (African American) 53 ML/MIN (>60); Glucose 152 mg/dL (74-106); Potassium 4.6 mmoL/L (3.5-5.1); Sodium 140 mmol/L (136-145)
== END ==
PROVIDERS: PCP Nurse Practitioner Family; Visit Provider Physician Assistant
DX: I49.3 Ventricular premature depolarization (principal); R00.2 Palpitations; N18.3 Chronic kidney disease, stage 3 (moderate); E78.4 Other hyperlipidemia; Z95.5 Presence of coronary angioplasty implant and graft
CPT/HCPCS: 36415; 80048

== ENCOUNTER → 2018-06-14 12:52 | Outpatient (CLI) | payer MEDICARE, OTHER, SELFPAY ==
--- NOTE | 2018-06-14 12:58 | XR_ITS ---
XR chest 2V HISTORY: Cough and congestion, current smoker ITS.REASON: PNEUMONIA ORDERING PHYSICIAN: Jazlyn Schilling PATIENT AGE: 72 years COMPARISON: None FINDINGS: Unremarkable cardiovascular structures. There is mild biapical pleural thickening with chronic coarsening of the bronchovascular markings. No lobar consolidation or collapse. Left humeral neck fracture. No acute bony findings. Degenerative changes are present in the thoracic spine. IMPRESSION: COPD, no change with no acute finding
== END ==
PROVIDERS: PCP Nurse Practitioner Family; Visit Provider Nurse Practitioner Family
DX: J16.8 Pneumonia due to other specified infectious organisms (principal)
CPT/HCPCS: 71046

== ENCOUNTER 2018-06-22 14:51 | Observation (INO) ==
[2018-06-22 15:24] LABS: Basophils # 0.1 K/mm3 (0-0.2); Basophils % 0.5 % (0.1-2.0); Eosinophils % 0.1 % (0.1-12.0); Hematocrit 42.8 % (42.0-52.0); Lymphocytes # 1.9 K/mm3 (0.7-4.5); Lymphocytes % 8.6 K/mm3 (10-50); Mean Corpuscular HGB Conc 32.7 g/dL (31.8-35.4); Mean Corpuscular Hemoglobin 29.4 pg (27.0-31.2); Mean Corpuscular Volume 90.1 fl (80-94); Mean Platelet Volume 7.8 fl (7.4-10.4); Monocytes # 2.1 K/mm3 (0.1-1.0); Monocytes % 9.5 % (1.7-9.3); Neutrophils % 81.2 % (37.0-80.0); Platelet Count 365 K/mm3 (142-424); Red Blood Count 4.75 M/mm3 (4.60-6.20); Red Cell Distribution Width 13.7 % (11.5-17.5); White Blood Count 22.2 K/mm3 (4.8-10.8)
[2018-06-22 15:33] LABS: Albumin/Globulin Ratio 0.7 (1.1-1.8); Anion Gap 10.9 mEq/L (5-15); Bilirubin,Total 0.5 mg/dL (0.2-1.0); Calcium 8.6 mg/dL (8.5-10.1); Globulin 4.2 gm/dl (1.3-3.2); Potassium 3.9 mmoL/L (3.5-5.1); Total Protein,Serum 7.2 gm/dL (6.4-8.2)
[2018-06-22 16:00] LABS: Lymphocytes % 10 % (10-50); Monocytes % 7 % (2-9); Neutrophils % 83 % (42-76); Total Cells Counted 100
[2018-06-22 16:08] LABS: RBC Morphology Normal
--- NOTE | 2018-06-22 16:15 | Emergency Department Note ---
ED Disposition Clinical Impression: Leukocytosis Qualifiers: Leukocytosis type: unspecified Qualified Code(s): D72.829 - Elevated white blood cell count, unspecified Disposition: Admitted as Observation Condition on Discharge: Fair Referrals: Jazlyn Schilling APRN [Primary Care Provider] - Time of Disposition: 20:39 - Critical Care Critical Care Time: No Attestation: On 06/22/18, the high probability of a clinically significant, sudden or life threatening deterioration of the following system(s) required my full and direct attention, intervention and personal management. The time I documented below is in addition to time spent performing reported procedures but includes the following listed in this critical care notation. Medical Decision Making - Medical Records Medical records reviewed: Yes: I reviewed the patient's medical records. - Wong Inquiry Pt receiving controlled substance: No Wong was queried for this patient: No Vital Signs: 06/22/18 14:59 06/22/18 15:41 06/22/18 15:58 Temperature 97.6 F Temperature Source Oral Pulse Rate [Right Brachial] 96 H 105 H 96 H Respiratory Rate 18 Blood Pressure [Right Arm] 106/52 L 94/52 L 100/57 L Blood Pressure Mean [Right Arm] 70 66 71 Blood Pressure Source [Right Arm] Automatic Cuff Automatic Cuff Automatic Cuff Blood Pressure Position [Right Arm] Sitting Sitting Sitting 02 Sat by Pulse Oximetry 97 100 100 Oxygen Delivery Method Room Air Nasal Cannula Nasal Cannula Oxygen Flow Rate (LPM) 2 2 06/22/18 17:44 06/22/18 18:18 06/22/18 18:21 Temperature Temperature Source Pulse Rate [Right Brachial] 93 H 90 93 H Respiratory Rate 99 H Blood Pressure [Right Arm] 117/65 119/69 119/68 Blood Pressure Mean [Right Arm] 82 85 85 Blood Pressure Source [Right Arm] Automatic Cuff Automatic Cuff Automatic Cuff Blood Pressure Position [Right Arm] Sitting Sitting Sitting 02 Sat by Pulse Oximetry 100 100 100 Oxygen Delivery Method Nasal Cannula Nasal Cannula Nasal Cannula Oxygen Flow Rate (LPM) 2 2 2 06/22/18 18:44 06/22/18 19:13 06/22/18 19:30 Temperature Temperature Source Pulse Rate [Right Brachial] 90 87 86 Respiratory Rate 18 16 18 Blood Pressure [Right Arm] 113/70 118/69 151/74 H Blood Pressure Mean [Right Arm] 84 85 99 Blood Pressure Source [Right Arm] Automatic Cuff Automatic Cuff Automatic Cuff Blood Pressure Position [Right Arm] Sitting Supine Supine 02 Sat by Pulse Oximetry 98 100 100 Oxygen Delivery Method Room Air Nasal Cannula Nasal Cannula Oxygen Flow Rate (LPM) 2 2 06/22/18 20:00 Temperature Temperature Source Pulse Rate [Right Brachial] 88 Respiratory Rate 18 Blood Pressure [Right Arm] 158/96 H Blood Pressure Mean [Right Arm] 116 Blood Pressure Source [Right Arm] Automatic Cuff Blood Pressure Position [Right Arm] Supine 02 Sat by Pulse Oximetry 100 Oxygen Delivery Method Nasal Cannula Oxygen Flow Rate (LPM) 2 - Lab Data Lab results reviewed: Yes: I reviewed the patient's lab results. Lab Results 06/22/18 15:10: WBC 22.2 H*, RBC 4.75, Hgb 14.0 L, Hct 42.8, MCV 90.1, MCH 29.4, MCHC 32.7, RDW 13.7, Plt Count 365, MPV 7.8, Neut % (Auto) 81.2 H, Lymph % (Auto) 8.6 L, [place] % (Auto) 9.5 H, Eos % (Auto) 0.1, Baso % (Auto) 0.5, Neut # (Auto) 18.0 H, Lymph # (Auto) 1.9, [place] # (Auto) 2.1 H, Eos # (Auto) 0.0, Baso # (Auto) 0.1, Total Counted 100, Neutrophils % (Manual) 83 H, Lymphocytes % (Manual) 10, Monocytes % (Manual) 7, Platelet Estimate Normal, RBC Morphology Normal 06/22/18 15:10: Sodium 137, Potassium 3.9, Chloride 101, Carbon Dioxide 29, Anion Gap 10.9, BUN 44 H, Creatinine 2.76 H, Estimated Creat Clear 25, Estimated GFR 23 L, Est GFR ( Amer) 28 L, Glucose 66 L, Calcium 8.6, Total Bilirubin 0.5, AST 15, ALT 23, Alkaline Phosphatase 101, Total Protein 7.2, Albumin 3.0 L, Globulin 4.2 H, Albumin/Globulin Ratio 0.7 L 06/22/18 16:45: Lactate 0.8 06/22/18 19:10: Troponin I < 0.02 06/22/18 19:30: Urine Color Yellow, Urine Appearance Clear, Urine pH 5.5, Ur Specific [place] >= 1.030, Urine Protein Negative, Urine Glucose (UA) Negative, Urine Ketones Trace, Urine Blood Negative, Urine Nitrate Negative, Urine Bilirubin Negative, Urine Urobilinogen 1.0, Ur Leukocyte Esterase Negative, Urine RBC None, Urine WBC 3-5, Ur Squamous Epith Cells 5-10, Urine Bacteria 1+ Result diagrams: 06/22/18 15:10 06/22/18 15:10 Orders (Tests/Meds): ED MEDICATIONS Discontinued Medications Generic Name Dose Route Start Last Admin Trade Name Freq PRN Reason Stop Dose Admin Sodium Chloride 1,000 mls @ 999 mls/hr 06/22/18 15:30 06/22/18 15:31 Sod Chlor 0.9% 1000ml Bag IV 06/22/18 16:30 999 mls/hr .Q1H1M MARCELLUS Administration Sodium Chloride 1,000 mls @ 999 mls/hr 06/22/18 19:30 06/22/18 19:29 Sod Chlor 0.9% 1000ml Bag IV 06/22/18 20:30 999 mls/hr .Q1H1M MARCELLUS Administration ORDERS Category Date Time Status CT head/brain wo con Stat Cat Scan 06/22/18 20:21 Ordered Chest XR -- portable [XR chest portable] Stat Exams 06/22/18 15:28 Taken Urinalysis and Microscopic Stat Lab 06/22/18 19:30 Ordered Blood Culture Stat Micro 06/22/18 16:45 Received Arterial Blood Gas Routine RT 06/22/18 17:40 Received Arterial Blood Gas Stat RT 06/22/18 17:42 Ordered - Radiology Data #1 Image(s): Chest Image Reviewed: Yes I reviewed the patient's radiology results, Yes I reviewed the patient's radiology image Preliminary Findings: Normal/NAD - CT Data CT Scan: Head Time Received: 20:[address] Reviewed: Yes: I have reviewed the patient's CT results Preliminary Findings: Normal/NAD Dizzy HPI - General Chief Complaint: Dizziness Stated Complaint: light headed, loss of appetite Time Seen by Provider: 06/22/18 16:15 Mode of Arrival: Wheelchair Limitations: No Limitations Description of Symptoms (Recalled from ER Triage Doc. by RN): Pt reports loss of appetite, states pt did not eat anything yesterday. states pt has c/o being dizzy today. - History of Present Illness HPI Narrative: Patient comes to the emergency room with complaints of dizziness that he has had for the last 3-4 months normally sees aJzlyn Schilling at the [facility] does not have a local physician here he has a history of hypertension coronary artery disease and has had 3 stents placed in the heart and is on Plavix and according to the family has been on Plavix for about 2 years he also continues to smoke a pack per day. He is allergic to penicillin and azathioprine MD complaint: dizziness Onset (ago): month(s) - Related Data Home Medications Medication Instructions Recorded Confirmed atorvastatin 40 mg tablet 40 mg PO HS 09/14/17 06/22/18 Amitriptyline HCl [Elavil 50mg 50 - 100 mg PO HS 10/14/17 06/22/18 tablet] Aspirin [Aspirin 81mg chewable 81 mg PO DAILY 10/14/17 06/22/18 tab] Diclofenac Sodium [Diclofenac 75mg 75 mg PO BID 06/22/18 06/22/18 Tab] Donepezil HCl [Aricept 10mg tablet] 10 mg PO QHS 06/22/18 06/22/18 Levothyroxine Sodium [Synthroid 50 mcg PO DAILY 06/22/18 06/22/18 50mcg (0.05mg) tab] Losartan Potassium [Cozaar] 25 mg PO DAILY 06/22/18 06/22/18 levoFLOXacin [Levaquin 500mg 500 mg PO DAILY 06/22/18 06/22/18 tab] Previous Rx's Medication Instructions Recorded clopidogrel 75 mg tablet 75 mg PO DAILY 90 Days #90 tab 04/21/18 Allergies Allergy/AdvReac Type Severity Reaction Status Date / Time Penicillins [PENICILLINS] Allergy Severe S-SWELLS-OR Verified 05/03/18 11:39 AL/THROAT azathioprine [From IMURAN] Allergy Unknown SKIN Verified 05/03/18 11:39 BLISTERS [facility] History I have reviewed the patient's past medical history: Yes Medical History: Reports:: Coronary Artery Disease, Hyperlipidemia, Hypertension, Myocardial Infarction Denies:: Cancer, Diabetes Mellitus Type 1, Diabetes Mellitus Type 2, MRSA Other Medical History: Reports: Arthritis Other Surgeries: Yes: Appendectomy, Cardiac Catheterization Amputation: No Fractures: No Comment: turbt - Social History Smoking Status: Current every day smoker Tobacco Type: cigarettes # Packs/Day (cigarettes): 1 #Yrs smoked (if former smoker): 55 Alcohol Intake: never Alcohol Intake Frequency:: other Substance Use Type: denies use Occupational Status: retired Housing: house Household Members: spouse - Psychiatric History Expresses thoughts of harming self/others: None Suicide Plan Description: No Plan Family Hx:: Heart Attack, Coronary Artery Disease ROS Obtained: Yes All systems reviewed & no additional complaints - Constitutional Constitutional: Reports system reviewed and no additional complaints, except as docu - Neurologic Neurologic: Reports system reviewed and no additional complaints, except as d ocu, Reports as per HPI Physical Exam - General General appearance: alert, in no apparent distress - Head Head exam: atraumatic - Eye Eye exam: Present: normal appearance - ENT ENT exam: Present: normal exam - Neck Neck exam: Present: normal inspection - Chest Chest inspection: Present: normal inspection - Respiratory Respiratory exam: Present: normal lung sounds bilaterally - Cardiovascular Cardiovascular exam: Present: regular rate (He is in sinus rhythm with frequent PVCs and a pattern of bigeminy and also has right bundle branch block) - Abdominal Exam Abdominal exam: Present: soft - Neurological Exam Neurological exam: Present: alert, oriented X3 (But according to his family he has a history of dementia and is on donepezil) - Psychiatric Psychiatric exam: Present: normal affect
[2018-06-22 19:36] LABS: Microscopic, Urine URINE MICROSCOPIC (MICROSCOPIC)
[2018-06-22 19:39] LABS: Appearance,Urine CLEAR (Clear); Bilirubin,Urine Negative (Negative); Blood, Urine Negative (Negative); Color,Urine YELLOW (Yellow); Glucose,Urine (UA) Negative (Negative); Ketones,Urine TRACE (Negative); Leukocyte Esterase,Urine Negative (Negative); PH,Urine 5.5 (5.0-8.5); Protein,Urine Negative (Negative); Specific Gravity, Urine >= 1.030 (1.005-1.030)
[2018-06-22 20:28] LABS: Bacteria,Urine 1+ /lpf
--- NOTE | 2018-06-22 22:33 | History & Physical Report ---
*Admission Date: 06/22/18 *Chief complaint: dizzyness *History of present illness: this wm who has had increasing episodes of dizzyness atient comes to the emergency room with complaints of dizziness that he has had for the last 3-4 months normally sees Jazlyn Schilling at the [facility] does not have a local physician here he has a history of hypertension coronary artery disease and has had 3 stents placed in the heart and is on Plavix and according to the family has been on Plavix for about 2 years he also continues to smoke a pack per day. [facility] History I have reviewed the patient's past medical history: Yes Medical History: Reports:: Coronary Artery Disease, Hyperlipidemia, Hypertension, Myocardial Infarction Denies:: Cancer, Diabetes Mellitus Type 1, Diabetes Mellitus Type 2, MRSA Other Medical History: Reports: Arthritis Other Surgeries: Yes: Appendectomy, Cardiac Catheterization Amputation: No Fractures: No - *Social History Educational Level: Completed High School Smoking Status: Current every day smoker Tobacco Type: cigarettes # Packs/Day (cigarettes): 5 #Yrs smoked (if former smoker): 55 Alcohol Intake: never Alcohol Intake Frequency:: other Substance Use Type: denies use Occupational Status: retired Housing: house Household Members: spouse - Psychiatric History Expresses thoughts of harming self/others: None Suicide Plan Description: No Plan *Family Hx:: Heart Attack, Coronary Artery Disease Review of Systems - Review of Systems Review of systems:: pertinent systems reviewed and negative unless documented below - Constitutional Reports weakness, Denies fever(s) - Eyes Denies change in vision - ENT Denies sore throat - *Cardiovascular Denies chest pain at rest - *Respiratory Denies cough - *Gastrointestinal Denies abdominal pain - *Genitourinary Denies blood in urine - *Musculoskeletal Denies joint pain - Integumentary/Breasts Denies rash - *Neurologic Denies seizure-like activity - Psychiatric Denies anxiety Meds Home Medications Medication Instructions Recorded Confirmed Type atorvastatin 40 mg tablet 40 mg PO HS 09/14/17 06/22/18 History Amitriptyline HCl [Elavil 50mg 100 mg PO HS 10/14/17 06/22/18 History tablet] Aspirin [Aspirin 81mg chewable 81 mg PO DAILY 10/14/17 06/22/18 History tab] Diclofenac Sodium [Diclofenac 75mg 75 mg PO BID 06/22/18 06/22/18 History Tab] Donepezil HCl [Aricept 10mg tablet] 10 mg PO QHS 06/22/18 06/22/18 History Levothyroxine Sodium [Synthroid 50 mcg PO DAILY 06/22/18 06/22/18 History 50mcg (0.05mg) tab] Losartan Potassium [Cozaar] 25 mg PO DAILY 06/22/18 06/22/18 History Triamcinolone Acetonide [Kenalog 0.1 % TOPICAL TID 06/22/18 06/22/18 History 0.1% cream 80gm tube] levoFLOXacin [Levaquin 500mg 500 mg PO DAILY 06/22/18 06/22/18 History tab] Allergies Allergy/AdvReac Type Severity Reaction Status Date / Time Penicillins [PENICILLINS] Allergy Severe S-SWELLS-OR Verified 05/03/18 11:39 AL/THROAT azathioprine [From IMURAN] Allergy Unknown SKIN Verified 05/03/18 11:39 BLISTERS Exam Vital signs and Labs for Last 24 Hours: Temp Pulse Resp BP Pulse Ox 98.2 F 89 18 113/89 98 06/22/18 21:06 06/22/18 21:06 06/22/18 21:06 06/22/18 21:06 06/22/18 21:06 Laboratory Results - last 24 hr 06/22/18 15:10: WBC 22.2 H*, RBC 4.75, Hgb 14.0 L, Hct 42.8, MCV 90.1, MCH 29.4, MCHC 32.7, RDW 13.7, Plt Count 365, MPV 7.8, Neut % (Auto) 81.2 H, Lymph % (Auto) 8.6 L, [place] % (Auto) 9.5 H, Eos % (Auto) 0.1, Baso % (Auto) 0.5, Neut # (Auto) 18.0 H, Lymph # (Auto) 1.9, [place] # (Auto) 2.1 H, Eos # (Auto) 0.0, Baso # (Auto) 0.1, Total Counted 100, Neutrophils % (Manual) 83 H, Lymphocytes % (Manual) 10, Monocytes % (Manual) 7, Platelet Estimate Normal, RBC Morphology Normal 06/22/18 15:10: Sodium 137, Potassium 3.9, Chloride 101, Carbon Dioxide 29, Anion Gap 10.9, BUN 44 H, Creatinine 2.76 H, Estimated Creat Clear 25, Estimated GFR 23 L, Est GFR ( Amer) 28 L, Glucose 66 L, Calcium 8.6, Total Bilirubin 0.5, AST 15, ALT 23, Alkaline Phosphatase 101, Total Protein 7.2, Albumin 3.0 L, Globulin 4.2 H, Albumin/Globulin Ratio 0.7 L 06/22/18 15:10: ESR 32 H 06/22/18 15:10: C-Reactive Protein 1.8 H 06/22/18 16:45: Lactate 0.8 06/22/18 19:10: Troponin I < 0.02 06/22/18 19:30: Urine Color Yellow, Urine Appearance Clear, Urine pH 5.5, Ur Specific [place] >= 1.030, Urine Protein Negative, Urine Glucose (UA) Negative, Urine Ketones Trace, Urine Blood Negative, Urine Nitrate Negative, Urine Bilirubin Negative, Urine Urobilinogen 1.0, Ur Leukocyte Esterase Negative, Urine RBC None, Urine WBC 3-5, Ur Squamous Epith Cells 5-10, Urine Bacteria 1+ I & O for Last 24 hours: Intake & Output 06/20/18 06/21/18 06/22/18 06/23/18 11:59 11:59 11:59 11:59 Intake Total 120 / 120 Balance 120 / 120 Weight 151 lb 7 oz - Constitutional no acute distress - *Routine HEENT Exam Head: Present: normocephalic Eye: Present: EOMI, PERRL ENT: Present: mucous membranes dry - *Routine Neck Exam Present: supple. Absent: carotid bruit - *Routine Respiratory Exam Present: CTA bilaterally - *Routine Cardiovascular Exam Present: RRR, murmur - *Routine Abdominal Exam Present: soft - *Routine Extremities Exam Present: full ROM - *Routine Skin Exam Present: intact - *Routine Neurological Exam Present: alert, CN II-XII intact - Routine Psychiatric Exam Present: unable to assess Assessment and Plan (1) Weakness Current visit: Yes Status: Acute Category: Medical Code(s): R53.1 - Weakness (2) Renal insufficiency Current visit: Yes Status: Acute Category: Medical Code(s): N28.9 - Disorder of kidney and ureter, unspecified (3) Leukocytosis Current visit: Yes Status: Acute Category: Medical Code(s): D72.829 - Elevated white blood cell count, unspecified
[2018-06-23 06:03] LABS: Basophils % 0.3 % (0.1-2.0); Eosinophils # 0.1 K/mm3 (0.0-0.4); Hematocrit 36.1 % (42.0-52.0); Lymphocytes # 1.7 K/mm3 (0.7-4.5); Mean Corpuscular HGB Conc 32.9 g/dL (31.8-35.4); Mean Corpuscular Hemoglobin 30.2 pg (27.0-31.2); Mean Corpuscular Volume 91.7 fl (80-94); Mean Platelet Volume 8.2 fl (7.4-10.4); Monocytes # 1.5 K/mm3 (0.1-1.0); Monocytes % 13.9 % (1.7-9.3); Neutrophils # 7.8 K/mm3 (1.8-7.8); Neutrophils % 69.9 % (37.0-80.0); Platelet Count 264 K/mm3 (142-424); Red Blood Count 3.94 M/mm3 (4.60-6.20); White Blood Count 11.2 K/mm3 (4.8-10.8)
[2018-06-23 06:09] LABS: ABG Base Excess -2.4 mmol/L (-2.4-2.3); ABG HCO3 22.7 mmhg (22.0-26.0); ABG Oxygen Saturation 98 % (90-100); ABG PCO2 39.3 mmhg (35.0-45.0); ABG PH 7.38 mmol/L (7.35-7.45); ABG PO2 104.7 mmhg (80-100); ABG TCO2 23.9 mmhg (23-27)
[2018-06-23 06:10] LABS: Allen's Test ACCEPTABLE; Oxygen 3 LPM %
[2018-06-23 06:50] LABS: Albumin/Globulin Ratio 0.6 (1.1-1.8); Anion Gap 10.9 mEq/L (5-15); Bilirubin,Total 0.5 mg/dL (0.2-1.0); Globulin 3.1 gm/dl (1.3-3.2); Potassium 4.9 mmoL/L (3.5-5.1); Thyroid Stimulating Hormone 1.62 uIU/ml (0.358-3.740); Total Protein,Serum 5.1 gm/dL (6.4-8.2)
[2018-06-23 06:58] LABS: Calcium 7.5 mg/dL (8.5-10.1)
--- NOTE | 2018-06-23 08:22 | Consult Report ---
Addendum entered and electronically signed by CHIKA Alfredo 06/23/18 16:07: Cardiac cath showed mild to moderate coronary artery disease. Preserved left ventricular check fraction with mildly elevated ventricular end-diastolic pressure. No change in home medications from a cardiac standpoint. Would recommend patient have a 30-day Holter monitor to assess for arrhythmias as a source of his lightheadedness and dizziness in light of his conduction system disease. Original Note: History of Present Illness Consult date: 06/23/18 Requesting physician: Mook Millan Chief complaint: Dizziness, SIMPSON Additional Medical History:: 1. Hypertension 2. Hyperlipidemia, on statin 3. Hypothyroidism, on supplement 4. Tobacco abuse, continued A. COPD 5. Coronary artery disease A. ELIAZAR to RCA and circumflex, 10/2016 B. Mild Cardiomyopathy, EF 50% by echo with definity, 2016 History of present illness: 72-year-old white male with known history of hypertension, coronary artery disease and continued tobacco use presented to the emergency department yesterday for dizziness. Patient times being out of his barn developing a lightheaded sensation without near syncope or syncope. He denies any chest tightness but did have some occasional sharp chest discomfort that was brief in duration but was associated with discomfort across his shoulders. Symptoms would resolve with rest. He has recently been seen in the office for complaint of chest pain for which Imdur was prescribed but discontinued due to dizziness. Patient continues on aspirin and Plavix therapy since his coronary stenting in early 2016. He does continue to smoke 1/2 pack to a whole pack per day. ER workup revealed normal troponins with evidence of ventricular ectopy noted. EKG shows sinus rhythm with right bundle branch block and ventricular bigeminy. Patient does have chronic kidney disease with acute exacerbation on admission which has improved overnight with IV fluids. Patient feels better this a.m. Cardiology consulted for evaluation recommendations. [facility] History Medical History: Reports:: Coronary Artery Disease, Hyperlipidemia, Hypertension, Myocardial Infarction Denies:: Cancer, Diabetes Mellitus Type 1, Diabetes Mellitus Type 2, MRSA Other Medical History: Reports: Arthritis Other Surgeries: Yes: Appendectomy, Cardiac Catheterization Amputation: No Fractures: No - *Social History Educational Level: Completed High School Smoking Status: Current every day smoker Tobacco Type: cigarettes # Packs/Day (cigarettes): 5 #Yrs smoked (if former smoker): 55 Alcohol Intake: never Alcohol Intake Frequency:: other Substance Use Type: denies use Occupational Status: retired Housing: house Household Members: spouse - Psychiatric History Expresses thoughts of harming self/others: None Suicide Plan Description: No Plan *Family Hx:: Heart Attack, Coronary Artery Disease Meds Home Medications Medication Instructions Recorded Confirmed Type atorvastatin 40 mg tablet 40 mg PO HS 09/14/17 06/22/18 History Amitriptyline HCl [Elavil 50mg 100 mg PO HS 10/14/17 06/22/18 History tablet] Aspirin [Aspirin 81mg chewable 81 mg PO DAILY 10/14/17 06/22/18 History tab] Diclofenac Sodium [Diclofenac 75mg 75 mg PO BID 06/22/18 06/22/18 History Tab] Donepezil HCl [Aricept 10mg tablet] 10 mg PO QHS 06/22/18 06/22/18 History Levothyroxine Sodium [Synthroid 50 mcg PO DAILY 06/22/18 06/22/18 History 50mcg (0.05mg) tab] Losartan Potassium [Cozaar] 25 mg PO DAILY 06/22/18 06/22/18 History Triamcinolone Acetonide [Kenalog 0.1 % TOPICAL TID 06/22/18 06/22/18 History 0.1% cream 80gm tube] levoFLOXacin [Levaquin 500mg 500 mg PO DAILY 06/22/18 06/22/18 History tab] Allergies Allergy/AdvReac Type Severity Reaction Status Date / Time Penicillins [PENICILLINS] Allergy Severe S-SWELLS-OR Verified 05/03/18 11:39 AL/THROAT azathioprine [From IMURAN] Allergy Unknown SKIN Verified 05/03/18 11:39 BLISTERS Review of Systems - *Cardiovascular Reports chest pain, Reports shortness of breath with activity - *Respiratory Reports cough, Reports shortness of breath with activity, Reports wheezing - *Gastrointestinal Denies abdominal pain - *Genitourinary Denies blood in urine - *Musculoskeletal Reports back pain - *Neurologic Reports weakness, Denies seizure-like activity Exam Vital signs and Labs for Last 24 Hours: Temp Pulse Resp BP Pulse Ox 98.3 F 92 H 18 127/73 94 L 06/23/18 04:13 06/23/18 04:13 06/23/18 04:13 06/23/18 04:13 06/23/18 04:13 Laboratory Results - last 24 hr 06/22/18 15:10: WBC 22.2 H*, RBC 4.75, Hgb 14.0 L, Hct 42.8, MCV 90.1, MCH 29.4, MCHC 32.7, RDW 13.7, Plt Count 365, MPV 7.8, Neut % (Auto) 81.2 H, Lymph % (Auto) 8.6 L, [place] % (Auto) 9.5 H, Eos % (Auto) 0.1, Baso % (Auto) 0.5, Neut # (Auto) 18.0 H, Lymph # (Auto) 1.9, [place] # (Auto) 2.1 H, Eos # (Auto) 0.0, Baso # (Auto) 0.1, Total Counted 100, Neutrophils % (Manual) 83 H, Lymphocytes % (Manual) 10, Monocytes % (Manual) 7, Platelet Estimate Normal, RBC Morphology Normal 06/22/18 15:10: Sodium 137, Potassium 3.9, Chloride 101, Carbon Dioxide 29, Anion Gap 10.9, BUN 44 H, Creatinine 2.76 H, Estimated Creat Clear 25, Estimated GFR 23 L, Est GFR ( Amer) 28 L, Glucose 66 L, Calcium 8.6, Total Bilirubin 0.5, AST 15, ALT 23, Alkaline Phosphatase 101, Total Protein 7.2, Albumin 3.0 L, Globulin 4.2 H, Albumin/Globulin Ratio 0.7 L 06/22/18 15:10: ESR 32 H 06/22/18 15:10: C-Reactive Protein 1.8 H 06/22/18 16:45: Lactate 0.8 06/22/18 17:40: Specimen Source L radial, O2 % 3 lpm, ABG pH 7.38, ABG pCO2 39.3, ABG pO2 104.7 H, ABG HCO3 22.7, ABG Total CO2 23.9, ABG O2 Saturation 98, ABG Base Excess -2.4, Don Test Acceptable 06/22/18 19:10: Troponin I < 0.02 06/22/18 19:30: Urine Color Yellow, Urine Appearance Clear, Urine pH 5.5, Ur Specific [place] >= 1.030, Urine Protein Negative, Urine Glucose (UA) Negative, Urine Ketones Trace, Urine Blood Negative, Urine Nitrate Negative, Urine Bilirubin Negative, Urine Urobilinogen 1.0, Ur Leukocyte Esterase Negative, Urine RBC None, Urine WBC 3-5, Ur Squamous Epith Cells 5-10, Urine Bacteria 1+ 06/23/18 05:53: WBC 11.2 H D, RBC 3.94 L, Hgb 12.0 L D, Hct 36.1 L, MCV 91.7, MCH 30.2, MCHC 32.9, RDW 14.0, Plt Count 264 D, MPV 8.2, Neut % (Auto) 69.9, Lymph % (Auto) 15.0, [place] % (Auto) 13.9 H, Eos % (Auto) 1.0, Baso % (Auto) 0.3, Neut # (Auto) 7.8, Lymph # (Auto) 1.7, [place] # (Auto) 1.5 H, Eos # (Auto) 0.1, Baso # (Auto) 0.0 06/23/18 05:53: Sodium 142, Potassium 4.9 D, Chloride 109 H, Carbon Dioxide 27, Anion Gap 10.9, BUN 29 H D, Creatinine 1.81 H D, Estimated Creat Clear 37, Estimated GFR 37 L, Est GFR ( Amer) 45 L D, Glucose 95 D, Calcium 7.5 L D, Total Bilirubin 0.5, AST 12 L, ALT 16 D, Alkaline Phosphatase 75, Total Protein 5.1 L D, Albumin 2.0 L D, Globulin 3.1, Albumin/Globulin Ratio 0.6 L, TSH 1.62 D, Thyroxine (T4) 7.0 06/23/18 05:53: Troponin I < 0.02 I & O for Last 24 hours: Intake & Output 06/20/18 06/21/18 06/22/18 06/23/18 11:59 11:59 11:59 11:59 Intake Total 240 / 240 Output Total 350 / 350 Balance -110 / -110 Weight 151 lb 7 oz - *Routine Neck Exam Present: supple. Absent: JVD, carotid bruit - *Routine Respiratory Exam Present: decreased breath sounds, rhonchi, wheezes. Absent: accessory muscle use, rales - *Routine Cardiovascular Exam Present: RRR. Absent: murmur, gallop, rubs - *Routine Abdominal Exam Present: soft. Absent: tenderness, distended, guarding - *Routine Extremities Exam Absent: edema, calf tenderness - *Routine Neurological Exam Present: alert, oriented X3, moving all extremities Assessment and Plan (1) Weakness Current visit: Yes Status: Acute Category: Medical Code(s): R53.1 - Weakness (2) Renal insufficiency Current visit: Yes Status: Acute Category: Medical Code(s): N28.9 - Disorder of kidney and ureter, unspecified (3) Leukocytosis Current visit: Yes Status: Acute Category: Medical Code(s): D72.829 - Elevated white blood cell count, unspecified (4) H/O class III angina pectoris Current visit: Yes Status: Acute Category: Medical Code(s): Z86.79 - Personal history of other diseases of the circulatory system (5) CAD (coronary artery disease) Current visit: No Status: Acute Qualifiers: Coronary Disease-Associated Artery/Lesion type: [place] artery [place] vs. transplanted heart: [place] heart Associated angina: without angina Qualified Code(s): I25.10 - Atherosclerotic heart disease of [place] coronary artery without angina pectoris Category: Medical Code(s): I25.10 - Atherosclerotic heart disease of [place] coronary artery without angina pectoris (6) Chronic kidney disease (CKD) Current visit: No Status: Chronic Qualifiers: Chronic kidney disease stage: stage 3 (moderate) Qualified Code(s): N18.3 - Chronic kidney disease, stage 3 (moderate) Category: Medical Code(s): N18.9 - Chronic kidney disease, unspecified (7) Chronic obstructive lung disease Current visit: No Status: Chronic Qualifiers: COPD type: unspecified COPD Qualified Code(s): J44.9 - Chronic obstructive pulmonary disease, unspecified Category: Medical Code(s): J44.9 - Chronic obstructive pulmonary disease, unspecified (8) Hyperlipidemia Current visit: No Status: Chronic Qualifiers: Hyperlipidemia type: other hyperlipidemia Category: Medical Code(s): E78.5 - Hyperlipidemia, unspecified (9) Hypertensive heart disease Current visit: No Status: Chronic Qualifiers: Heart failure presence: unspecified whether heart failure present Qualified Code(s): I11.9 - Hypertensive heart disease without heart failure Category: Medical Code(s): I11.9 - Hypertensive heart disease without heart failure (10) Right bundle branch block (RBBB) determined by electrocardiography Current visit: No Status: Chronic Category: Medical Code(s): I45.10 - Unspecified right bundle-branch block (11) Stented coronary artery Current visit: No Status: Chronic Category: Surgical Code(s): Z95.5 - Presence of coronary angioplasty implant and graft (12) Tobacco dependence syndrome Current visit: No Status: Chronic Category: Medical Code(s): F17.200 - Nicotine dependence, unspecified, uncomplicated (13) Ventricular bigeminy Current visit: Yes Status: Acute Category: Medical Code(s): I49.9 - Cardiac arrhythmia, unspecified - Assessment and plan all Dx Assessment and Plan for all problems:: 1. Pt with known CAD and now with exertional back pain, ventricular bigeminy and lightheadedness. Concern for unstable angina pectoris with possible cardiac arrhythmia causing symptoms. Pt is not a candidate for stress testing due to physical limitations and wheezing on exam. Will recommend proceeding with [facility] today. Risks, benefits and procedure discussed with patient. He agrees to proceed. Continue with aspirin and Plavix. Patient has been intolerant of beta-blockers in the past due to fatigue. Recent trial of Imdur was stopped due to dizziness and hypotension. 2. Continue monitor on telemetry for possible arrhythmias with concern for progression of cardiac conduction disease. 3. Further recommendations pending above results.
--- NOTE | 2018-06-23 08:38 | Progress Note ---
Internal Medicine - PN: Subj *Date: 06/23/18 *Time: 08:37 Exam Vital signs and Labs for Last 24 Hours: Temp Pulse Resp BP Pulse Ox 98.2 F 90 18 126/70 93 L 06/23/18 08:00 06/23/18 08:00 06/23/18 08:00 06/23/18 08:00 06/23/18 08:00 Laboratory Results - last 24 hr 06/22/18 15:10: WBC 22.2 H*, RBC 4.75, Hgb 14.0 L, Hct 42.8, MCV 90.1, MCH 29.4, MCHC 32.7, RDW 13.7, Plt Count 365, MPV 7.8, Neut % (Auto) 81.2 H, Lymph % (Auto) 8.6 L, [place] % (Auto) 9.5 H, Eos % (Auto) 0.1, Baso % (Auto) 0.5, Neut # (Auto) 18.0 H, Lymph # (Auto) 1.9, [place] # (Auto) 2.1 H, Eos # (Auto) 0.0, Baso # (Auto) 0.1, Total Counted 100, Neutrophils % (Manual) 83 H, Lymphocytes % (Manual) 10, Monocytes % (Manual) 7, Platelet Estimate Normal, RBC Morphology Normal 06/22/18 15:10: Sodium 137, Potassium 3.9, Chloride 101, Carbon Dioxide 29, Anion Gap 10.9, BUN 44 H, Creatinine 2.76 H, Estimated Creat Clear 25, Estimated GFR 23 L, Est GFR ( Amer) 28 L, Glucose 66 L, Calcium 8.6, Total Bilirubin 0.5, AST 15, ALT 23, Alkaline Phosphatase 101, Total Protein 7.2, Albumin 3.0 L, Globulin 4.2 H, Albumin/Globulin Ratio 0.7 L 06/22/18 15:10: ESR 32 H 06/22/18 15:10: C-Reactive Protein 1.8 H 06/22/18 16:45: Lactate 0.8 06/22/18 17:40: Specimen Source L radial, O2 % 3 lpm, ABG pH 7.38, ABG pCO2 39.3, ABG pO2 104.7 H, ABG HCO3 22.7, ABG Total CO2 23.9, ABG O2 Saturation 98, ABG Base Excess -2.4, Don Test Acceptable 06/22/18 19:10: Troponin I < 0.02 06/22/18 19:30: Urine Color Yellow, Urine Appearance Clear, Urine pH 5.5, Ur Specific [place] >= 1.030, Urine Protein Negative, Urine Glucose (UA) Negative, Urine Ketones Trace, Urine Blood Negative, Urine Nitrate Negative, Urine Bilirubin Negative, Urine Urobilinogen 1.0, Ur Leukocyte Esterase Negative, Urine RBC None, Urine WBC 3-5, Ur Squamous Epith Cells 5-10, Urine Bacteria 1+ 06/23/18 05:53: WBC 11.2 H D, RBC 3.94 L, Hgb 12.0 L D, Hct 36.1 L, MCV 91.7, MCH 30.2, MCHC 32.9, RDW 14.0, Plt Count 264 D, MPV 8.2, Neut % (Auto) 69.9, Lymph % (Auto) 15.0, [place] % (Auto) 13.9 H, Eos % (Auto) 1.0, Baso % (Auto) 0.3, Neut # (Auto) 7.8, Lymph # (Auto) 1.7, [place] # (Auto) 1.5 H, Eos # (Auto) 0.1, Baso # (Auto) 0.0 06/23/18 05:53: Sodium 142, Potassium 4.9 D, Chloride 109 H, Carbon Dioxide 27, Anion Gap 10.9, BUN 29 H D, Creatinine 1.81 H D, Estimated Creat Clear 37, Estimated GFR 37 L, Est GFR ( Amer) 45 L D, Glucose 95 D, Calcium 7.5 L D, Total Bilirubin 0.5, AST 12 L, ALT 16 D, Alkaline Phosphatase 75, Total Protein 5.1 L D, Albumin 2.0 L D, Globulin 3.1, Albumin/Globulin Ratio 0.6 L, TSH 1.62 D, Thyroxine (T4) 7.0 06/23/18 05:53: Troponin I < 0.02 I & O for Last 24 hours: Intake & Output 06/20/18 06/21/18 06/22/18 06/23/18 11:59 11:59 11:59 11:59 Intake Total 240 / 240 Output Total 575 / 575 Balance -335 / -335 Weight 151 lb 7 oz - *Routine HEENT Exam Head: Present: normocephalic Eye: Present: PERRL ENT: Present: mucous membranes moist - *Routine Neck Exam Present: supple. Absent: lymphadenopathy - *Routine Respiratory Exam Present: CTA bilaterally - *Routine Cardiovascular Exam Present: RRR - *Routine Abdominal Exam Present: soft, normoactive bowel sounds. Absent: tenderness - *Routine Extremities Exam Absent: cyanosis, clubbing, edema - *Routine Skin Exam Present: warm. Absent: rash - *Routine Neurological Exam Present: alert, oriented X3 Assessment and Plan (1) Weakness Current visit: Yes Status: Acute Category: Medical Code(s): R53.1 - Weakness (2) Renal insufficiency Current visit: Yes Status: Acute Category: Medical Code(s): N28.9 - Disorder of kidney and ureter, unspecified (3) Leukocytosis Current visit: Yes Status: Acute Category: Medical Code(s): D72.829 - Elevated white blood cell count, unspecified (4) H/O class III angina pectoris Current visit: Yes Status: Acute Category: Medical Code(s): Z86.79 - Personal history of other diseases of the circulatory system (5) CAD (coronary artery disease) Current visit: No Status: Acute Qualifiers: Qualified Code(s): I25.10 - Atherosclerotic heart disease of [place] coronary artery without angina pectoris Category: Medical Code(s): I25.10 - Atherosclerotic heart disease of [place] coronary artery without angina pectoris (6) Chronic kidney disease (CKD) Current visit: No Status: Chronic Qualifiers: Qualified Code(s): N18.3 - Chronic kidney disease, stage 3 (moderate) Category: Medical Code(s): N18.9 - Chronic kidney disease, unspecified (7) Chronic obstructive lung disease Current visit: No Status: Chronic Qualifiers: Qualified Code(s): J44.9 - Chronic obstructive pulmonary disease, unspecified Category: Medical Code(s): J44.9 - Chronic obstructive pulmonary disease, unspecified (8) Hyperlipidemia Current visit: No Status: Chronic Qualifiers: Qualified Code(s): E78.49 - Other hyperlipidemia; E78.4 - Other hyperlipidemia Category: Medical Code(s): E78.5 - Hyperlipidemia, unspecified (9) Hypertensive heart disease Current visit: No Status: Chronic Qualifiers: Qualified Code(s): I11.9 - Hypertensive heart disease without heart failure Category: Medical Code(s): I11.9 - Hypertensive heart disease without heart failure (10) Right bundle branch block (RBBB) determined by electrocardiography Current visit: No Status: Chronic Category: Medical Code(s): I45.10 - Unspecified right bundle-branch block (11) Stented coronary artery Current visit: No Status: Chronic Category: Surgical Code(s): Z95.5 - Presence of coronary angioplasty implant and graft (12) Tobacco dependence syndrome Current visit: No Status: Chronic Category: Medical Code(s): F17.200 - Nicotine dependence, unspecified, uncomplicated (13) Ventricular bigeminy Current visit: Yes Status: Acute Category: Medical Code(s): I49.9 - Cardiac arrhythmia, unspecified - Assessment and plan all Dx Assessment and Plan for all problems:: Heart cath Today Rounded with Dr. Millan all orders per Yana Discharge possible in a.m.
--- NOTE | 2018-06-23 09:10 | Pharmacy Consult Notes ---
[facility] Pharmacy VTE Monitoring - Patient Demographics Admission date: 06/23/18 Report Date: 06/23/18 Time: 09:10 Allergies/Adverse Reactions: Patient Allergies Penicillins [PENICILLINS] Allergy (Severe, Verified 05/03/18 11:39) [id number]/THROAT azathioprine [From IMURAN] Allergy (Unknown, Verified 05/03/18 11:39) SKIN BLISTERS Height: 1.78 m Weight: 68.691 kg Patient Problems: Current Active Problems Leukocytosis (Acute) Weakness (Acute) Renal insufficiency (Acute) Leukocytosis (Acute) H/O class III angina pectoris (Acute) Ventricular bigeminy (Acute) - VTE Risk Labs: VTE Related Lab Results Hgb 12.0 g/dL (14.1-18.0) L D 06/23/18 05:53 Hct 36.1 % (42.0-52.0) L 06/23/18 05:53 Plt Count 264 K/mm3 (142-424) D 06/23/18 05:53 BUN 29 mg/dL (7-18) H D 06/23/18 05:53 Creatinine 1.81 mg/dL (0.70-1.30) H D 06/23/18 05:53 Estimated Creat Clear 37 mL/min (0-300) 06/23/18 05:53 Was VTE Risk Assessment Performed: Yes VTE Score: 2 VTE Risk Level: Very Low Risk Clinical Trial Participant: No - Prophylaxis VTE Prophylaxis Ordered?: Yes Types of VTE Prophylaxis: TEDS Knee High
[2018-06-23 09:24] LABS: Anion Gap 8.4 mEq/L (5-15); Calcium 7.6 mg/dL (8.5-10.1); Potassium 4.4 mmoL/L (3.5-5.1)
--- NOTE | 2018-06-23 11:45 | Cardiology Report ---
PROCEDURE: 2-D M-mode and color Doppler study INDICATIONS FOR THE TEST: Chest pain COPD Heart MurmurX Tobacco Smoking Palpitations Fatigue Syncope Edema HypertensionXDiabetes MellitusX Rheumatic Fever SOB SIMPSON Obesity HyperlipidemiaX Family History HD Additional History PATIENT INFORMATION HEIGHT: 72 WEIGHT:151 GENDER: Male B/P:227/101 2-D/M-MODE INTERPRETATION: 2-D MEASUREMENTS OBSERVED VALUES IN CMS Right Ventricular Dimension (RVDd) 1.8 Interventricular Septum (Thickness)(IVsd) 1.0 Left Ventricular Internal Dimensions(LVIDd) 5.5 Left Ventricular Posterior Wall (Thickness)(LVPWd) .9 Aortic Root 3.8 Aortic Cusp Separation 2.1 Left Atrial Dimensions (LAD) 2.9 2D 1. Left atrium is qualitatively mildly enlarged, left ventricle is normal size, mild qualitative concentric left ventricular hypertrophy, visually estimated ejection fraction 55% with no regional wall motion abnormality, endocardial surfaces are poorly visualized. 2. The right atrium and right ventricle are normal size and contractility. 3. The aortic valve is minimally thickened and fibrosed. 4. The mitral and tricuspid valve are grossly normal. 5. The pulmonic valve is poorly visualized. 6. No significant pericardial effusion noted. DOPPLER INTERROGATION: Doppler interrogation of the aortic, mitral and tricuspid valvular presence of mild mitral and tricuspid regurgitation, tricuspid regurgitation jet velocity is inadequate for calculation of the right ventricular systolic pressure, grade 1 diastolic dysfunction seen without tissue Doppler evidence of raised left atrial pressure. CONCLUSION: 1. Enlarged left atrium, normal left ventricular size, mild qualitative concentric left ventricular hypertrophy, visually estimated ejection fraction 55% with no regional wall motion abnormality, endocardial surface of poorly visualized, grade 1 diastolic dysfunction seen without tissue Doppler evidence of raised left atrial pressure. 2. Mild mitral and tricuspid regurgitation 3. No significant pericardial effusion noted.
[2018-06-24 06:06] LABS: Anion Gap 10.2 mEq/L (5-15); Calcium 7.7 mg/dL (8.5-10.1); Potassium 4.2 mmoL/L (3.5-5.1)
--- NOTE | 2018-06-24 08:46 | Discharge Summary ---
General - General Admission date:: 06/22/18 Discharge date: 06/24/18 HPI HPI: this wm who has had increasing episodes of dizzyness atient comes to the emergency room with complaints of dizziness that he has had for the last 3-4 months normally sees Jazlyn Schilling at the [facility] does not have a local physician here he has a history of hypertension coronary artery disease and has had 3 stents placed in the heart and is on Plavix and according to the family has been on Plavix for about 2 years he also continues to smoke a pack per day. Hospital Course Hospital Course: heart cath ANGIOGRAPHIC RESULTS: 1. The left main artery normal 2. The left anterior descending artery has ostial 20% stenosis followed by additional proximal 30% stenoses mid vessel concentric 40% stenosis 3. The circumflex artery is a large nondominant vessel with proximal 30% stenoses mid vessel 20% stenoses and a distal 40% stenosis and a trifurcating small to medium terminal obtuse marginal artery 4. The right coronary artery is a dominant vessel and has proximal 20% stenoses diffuse mid vessel 30% stenoses 5. The YUEN ventriculogram reveals preserved 60% 6. The left ventricular end-diastolic pressure 20 to 25 mmHg IMPRESSION: 1. Mild to moderate nonflow limiting coronary artery disease 2. Preserved ejection fraction 3. Moderately elevated LVEDP consistent with diastolic dysfunction PLAN: 1. Risk factor modification 2. Patient would benefit from low-dose diuresis Objective Vital signs: Temp Pulse Resp BP Pulse Ox 98.4 F 91 H 18 149/86 H 98 06/24/18 07:38 06/24/18 07:38 06/24/18 07:38 06/24/18 07:38 06/24/18 07:38 no acute distress - *Routine HEENT Exam Head: Present: normocephalic Eye: Present: PERRL ENT: Present: mucous membranes moist - *Routine Respiratory Exam Present: CTA bilaterally - *Routine Cardiovascular Exam Present: RRR - *Routine Abdominal Exam Present: soft, normoactive bowel sounds - *Routine Extremities Exam Present: full ROM - *Routine Skin Exam Present: intact - Routine Psychiatric Exam Present: normal affect Results Labs on day of discharge: Labs from last 24 hours 06/24/18 06/23/18 05:45 08:48 Sodium 140 140 Potassium 4.2 4.4 Chloride 106 108 H Carbon Dioxide 28 28 Anion Gap 10.2 8.4 BUN 20 H D 27 H Creatinine 1.58 H 1.77 H Estimated Creat Clear 42 38 Estimated GFR 44 L 38 L Est GFR ( Amer) 53 L 46 L Glucose 99 86 Calcium 7.7 L 7.6 L - Additional Comments Rounded with Dr. Millan all orders per Yana DS: Diagnosis - Discharge Diagnosis (1) Weakness Status: Acute (2) Renal insufficiency Status: Acute (3) Leukocytosis Status: Acute (4) H/O class III angina pectoris Status: Acute (5) CAD (coronary artery disease) Status: Acute (6) Chronic kidney disease (CKD) Status: Chronic (7) Chronic obstructive lung disease Status: Chronic (8) Hyperlipidemia Status: Chronic (9) Hypertensive heart disease Status: Chronic (10) Right bundle branch block (RBBB) determined by electrocardiography Status: Chronic (11) Stented coronary artery Status: Chronic (12) Tobacco dependence syndrome Status: Chronic (13) Ventricular bigeminy Status: Acute Discharge Plan - Patient Discharge Instructions ACTIVITY: Continue current activity DIET: continue same diet - Follow up Plan Follow up with: Mook Millan MD [Staff Physician] - Rashaad Enriquez MD [Staff Physician] - 1 week Disposition: Home, Self-[facility] Medications: Home Medications Medication Instructions Recorded Confirmed Type atorvastatin 40 mg tablet 40 mg PO HS 09/14/17 06/22/18 History Amitriptyline HCl [Elavil 50mg 100 mg PO HS 10/14/17 06/22/18 History tablet] Aspirin [Aspirin 81mg chewable 81 mg PO DAILY 10/14/17 06/22/18 History tab] Diclofenac Sodium [Diclofenac 75mg 75 mg PO BID 06/22/18 06/22/18 History Tab] Donepezil HCl [Aricept 10mg tablet] 10 mg PO QHS 06/22/18 06/22/18 History Levothyroxine Sodium [Synthroid 50 mcg PO DAILY 06/22/18 06/22/18 History 50mcg (0.05mg) tab] Losartan Potassium [Cozaar] 25 mg PO DAILY 06/22/18 06/22/18 History Triamcinolone Acetonide [Kenalog 0.1 % TOPICAL TID 06/22/18 06/22/18 History 0.1% cream 80gm tube] levoFLOXacin [Levaquin 500mg 500 mg PO DAILY 06/22/18 06/22/18 History tab] Clopidogrel Bisulfate [Plavix 75mg 75 mg PO DAILY 06/23/18 06/23/18 History Tab] Prescriptions/Medication Reconciliation: New Aspirin [Aspirin 81mg EC Tab] 81 mg PO DAILY tablet. Furosemide [Lasix 20mg tab] 20 mg PO DAILY 7 Days #7 tab Continue atorvastatin 40 mg tablet 40 mg PO HS Amitriptyline HCl [Elavil 50mg tablet] 100 mg PO HS Losartan Potassium [Cozaar] 25 mg PO DAILY Donepezil HCl [Aricept 10mg tablet] 10 mg PO QHS Triamcinolone Acetonide [Kenalog 0.1% cream 80gm tube] 0.1 % TOPICAL TID Clopidogrel Bisulfate [Plavix 75mg Tab] 75 mg PO DAILY Aspirin [Aspirin 81mg chewable tab] 81 mg PO DAILY Discontinued levoFLOXacin [Levaquin 500mg tab] 500 mg PO DAILY Diclofenac Sodium [Diclofenac 75mg Tab] 75 mg PO BID Levothyroxine Sodium [Synthroid 50mcg (0.05mg) tab] 50 mcg PO DAILY
--- NOTE | 2018-06-24 09:32 | Progress Note ---
Subjective Date: 06/24/18 Time: 09:31 Principal diagnosis: Lightheadedness, dizziness, chest pain, shortness of breath Interval history: 72-year-old white male in bed in no acute distress. States he feels better and ready to go home. Telemetry reveals no significant arrhythmias. Exam Vital signs and Labs for Last 24 Hours: Temp Pulse Resp BP Pulse Ox 98.4 F 91 H 18 149/86 H 98 06/24/18 07:38 06/24/18 07:38 06/24/18 07:38 06/24/18 07:38 06/24/18 07:38 Laboratory Results - last 24 hr 06/23/18 08:48: Sodium 140, Potassium 4.4, Chloride 108 H, Carbon Dioxide 28, Anion Gap 8.4, BUN 27 H, Creatinine 1.77 H, Estimated Creat Clear 38, Estimated GFR 38 L, Est GFR ( Amer) 46 L, Glucose 86, Calcium 7.6 L 06/24/18 05:45: Sodium 140, Potassium 4.2, Chloride 106, Carbon Dioxide 28, Anion Gap 10.2, BUN 20 H D, Creatinine 1.58 H, Estimated Creat Clear 42, Estimated GFR 44 L, Est GFR ( Amer) 53 L, Glucose 99, Calcium 7.7 L I & O for Last 24 hours: Intake & Output 06/21/18 06/22/18 06/23/18 06/24/18 11:59 11:59 11:59 11:59 Intake Total 240 / 240 360 / 360 Output Total 575 / 575 1060 / 1060 Balance -335 / -335 -700 / -700 Weight 151 lb 7 oz - *Routine Respiratory Exam Present: decreased breath sounds, diminished air movement. Absent: accessory muscle use, rales, rhonchi, wheezes - *Routine Cardiovascular Exam Present: RRR. Absent: murmur, gallop, rubs Progress Note: A&P (1) Weakness Status: Acute Current Visit: Yes (2) Renal insufficiency Status: Acute Current Visit: Yes (3) Leukocytosis Status: Acute Current Visit: Yes (4) H/O class III angina pectoris Status: Acute Current Visit: Yes (5) CAD (coronary artery disease) Status: Acute Current Visit: No (6) Chronic kidney disease (CKD) Status: Chronic Current Visit: No (7) Chronic obstructive lung disease Status: Chronic Current Visit: No (8) Hyperlipidemia Status: Chronic Current Visit: No (9) Hypertensive heart disease Status: Chronic Current Visit: No (10) Right bundle branch block (RBBB) determined by electrocardiography Status: Chronic Current Visit: No (11) Stented coronary artery Status: Chronic Current Visit: No (12) Tobacco dependence syndrome Status: Chronic Current Visit: No (13) Ventricular bigeminy Status: Acute Current Visit: Yes Assessment and Plan for All Diagnoses:: Stable CAD by cardiac cath yesterday. Continue home medications. Okay from cardiology standpoint for discharge. Recommend 30-day event monitor which will be placed as an outpatient.
== END 2018-06-24 10:34 | disposition home or self-care (01) ==
LOC: 2ND 14:51 → ER 14:51 → 2ND 21:01
PROVIDERS: ADMIT Emergency Medicine; ATTEND Emergency Medicine

== ENCOUNTER → 2018-07-05 13:08 | Outpatient (CLI) | payer MEDICARE, OTHER, SELFPAY ==
--- NOTE | 2018-07-05 13:14 | XR_ITS ---
EXAM: XR cervical spine 3V HISTORY: ITS.REASON: NECK PAIN ORDERING PHYSICIAN: Jazlyn Schilling PATIENT AGE: 72 years COMPARISON: None FINDINGS: There is slight reversal of the cervical lordosis. Degenerative disc disease is present at C4-C5 C5-C6 and C6-C7 Normal alignment. No fracture or dislocation. No lytic or blastic change. Incidental carotid calcifications are noted on both sides IMPRESSION: Reversal lordosis which may be due to patient positioning or muscle spasm with degenerative disc
== END ==
PROVIDERS: PCP Nurse Practitioner Family; Visit Provider Nurse Practitioner Family
DX: M54.2 Cervicalgia (principal)
CPT/HCPCS: 72040

== ENCOUNTER → 2018-12-05 13:21 | Outpatient (CLI) | payer MEDICARE, OTHER, SELFPAY ==
[2018-12-05 15:25] LABS: Alanine Aminotransferase 21 U/L (12-78); Albumin Level 3.6 gm/dL (3.4-5.0); Albumin/Globulin Ratio 1.2 (1.1-1.8); Alkaline Phosphatase 106 U/L (46-116); Anion Gap 12.9 mEq/L (5-15); Aspartate Amino Transferase 15 U/L (15-37); Bilirubin,Total 0.5 mg/dL (0.2-1.0); Blood Urea Nitrogen 13 mg/dL (7-18); Carbon Dioxide 29 mmol/L (21.0-32.0); Chloride 107 mmol/L (98-107); Creatinine,Serum 1.56 mg/dL (0.70-1.30); Estimated Glomerular Filt Rate 44 ml/min (>60); GFR (African American) 53 ML/MIN (>60); Globulin 2.9 gm/dl (1.3-3.2); Glucose 70 mg/dL (74-106); Potassium 3.9 mmoL/L (3.5-5.1); Sodium 145 mmol/L (136-145); Thyroid Stimulating Hormone 0.93 uIU/ml (0.358-3.740); Total Protein,Serum 6.5 gm/dL (6.4-8.2)
[2018-12-06 08:11] LABS: Vitamin B12 349 pg/mL (232-1245)
[2018-12-06 10:53] LABS: Folate 6.7 ng/mL (>3.0)
== END ==
PROVIDERS: Visit Provider Specialist
DX: R41.3 Other amnesia (principal); G47.33 Obstructive sleep apnea (adult) (pediatric)
CPT/HCPCS: 36415; 80053; 82607; 82746; 84443

== ENCOUNTER → 2019-01-09 15:09 | Outpatient (CLI) | payer MEDICARE, OTHER, SELFPAY ==
--- NOTE | 2019-01-09 15:11 | CT_ITS ---
CT lung screening EXAM: CT LUNG LOW DOSE WO CONTRAST HISTORY: ITS.REASON: CURRENT TOBACCO USE, PERSISTANT COUGH ORDERING PHYSICIAN: Stuart Reyes MD PATIENT AGE: 73 years COMPARISON: None TECHNIQUE: The exam was performed on a GE Light Speed [address] scanner using 2.90 mGy CTDI. A low dose helical CT CHEST was performed on a multi-detector scanner. All CT scans at the facility use one or more dose reduction, viz: automated exposure control, ma/kV adjustment per patient size (including targeted exams where dose is matched to indication, i.e. head), or iterative reconstruction technique. The LDCT was performed in a facility that meets the criteria for the screening program. Data regarding this exam was submitted to ACR which is an approved registry. The order for this exam indicates that it came as a result of a lung cancer screening counseling shard decision-making visit that included all the elements required of such a visit including smoking cessation. The radiologist interpreting this exam meets the CMS criteria for the LDCT lung cancer screening program. The exam is reported using the Lung-RADS classification scale and reported to the ACR registry. NOTE: This study was performed for the specific purposes of lung cancer screening and is not an alternative to diagnostic chest CT. RADIATION DOSE: CTDI vol(CT dose Index-volume) = 2.90mG DLP (Dose Length Product) = 100.44 mGcm FINDINGS: COPD with scarring. Motion artifact. Fibrotic changes in the lung apices. There are several noncalcified pulmonary nodules, which are subpleural and some which are parenchymal. These range in size from 2 mm 4 mm. There are also calcified nodule present. Scattered small nodes are present in the mediastinum. There are coronary artery calcifications. Bilateral gynecomastia. IMPRESSION: 1. Lung RADS Category: 3, probably benign. Multiple noncalcified nodules 2. Other findings: COPD, old granulomatous disease, coronary artery calcification RECOMMENDATIONS: [address] follow-up suggested for the multiple noncalcified nodules
== END ==
PROVIDERS: PCP Internal Medicine Adolescent Medicine; Visit Provider Internal Medicine Adolescent Medicine
DX: Z12.2 Encounter for screening for malignant neoplasm of respiratory organs (principal); Z87.891 Personal history of nicotine dependence; R05 Cough

== ENCOUNTER → 2019-02-13 11:05 | Outpatient (CLI) | payer MEDICARE, OTHER, SELFPAY ==
[2019-02-13 14:21] LABS: Anion Gap 12.1 mEq/L (5-15); Blood Urea Nitrogen 13 mg/dL (7-18); Calcium 8.1 mg/dL (8.5-10.1); Carbon Dioxide 28 mmol/L (21.0-32.0); Chloride 107 mmol/L (98-107); Creatinine,Serum 1.79 mg/dL (0.70-1.30); Estimated Glomerular Filt Rate 38 ml/min (>60); GFR (African American) 46 ML/MIN (>60); Glucose 164 mg/dL (74-106); Potassium 3.1 mmoL/L (3.5-5.1); Sodium 144 mmol/L (136-145)
== END ==
PROVIDERS: PCP Internal Medicine Adolescent Medicine; Visit Provider Internal Medicine Adolescent Medicine
DX: R79.89 Other specified abnormal findings of blood chemistry (principal)
CPT/HCPCS: 36415; 80048

== ENCOUNTER → 2019-09-13 09:30 | Outpatient (CLI) | payer MEDICARE, OTHER, SELFPAY ==
--- NOTE | 2019-09-13 09:31 | CA_ITS ---
APPROVED REPORT Director Supply Chain: Nicole Colon RVT Laterality: Bilateral Study Quality: Good Indications: JOHAN Risk Factors Hypertension: Doppler Spectral Velocity Analysis ECA (R) 96.30/14.60 cm/s ECA (L) 116.40/21.00 cm/s dICA (R) 63.20/22.30 cm/s dICA (L) 79.00/22.20 cm/s Negrita (R) 61.60/22.30 cm/s Negrita (L) 74.40/21.50 cm/s pICA (R) 70.60/24.00 cm/s pICA (L) 159.00/159.00 cm/s dCCA (R) 59.90/17.10 cm/s dCCA (L) 75.10/20.00 cm/s pCCA (R) 71.90/11.10 cm/s pCCA (L) 56.10/10.90 cm/s Vert (R) 63.00/12.70 cm/s Vert (L) 27.20/8.60 cm/s ICA/CCA 1.18 ICA/CCA 2.12 Conclusion Study suggests less than 20% stenosis of the right internal cartoid artery unchanged from 11/01/17. Study suggests 50-69% stenosis of the left internal cartoid artery unchanged from 11/01/17. Antegrade flow seen bilateral vertebral arteries. Electronically signed by : Don Barrientos MD 09/13/2019 17:15:48
== END ==
PROVIDERS: PCP Nurse Practitioner Family; Visit Provider Physician Assistant
DX: I65.23 Occlusion and stenosis of bilateral carotid arteries (principal)
CPT/HCPCS: 93880

== ENCOUNTER → 2020-03-15 10:01 | Outpatient (CLI) | payer MEDICARE, OTHER, SELFPAY ==
[2020-03-15 13:09] LABS: Coronavirus 19 IgG Antibody Negative (Negative); Coronavirus 19 IgM Antibody Negative (Negative)
== END ==
PROVIDERS: Visit Provider Internal Medicine Gastroenterology
DX: Z01.818 Encounter for other preprocedural examination (principal)
CPT/HCPCS: 36415; 86328

== ENCOUNTER 2020-03-18 10:28 | Day surgery (SDC) | payer MEDICARE, OTHER, SELFPAY ==
[2020-03-12 16:50] VITALS: BMI 24.2
[2020-03-18] VITALS (8 sets, daily range): BP systolic 85–154; BP diastolic 49–75; PULSE 42–89; RESP 18; TEMP 36.1–36.5; O2SAT 95–99
--- NOTE | 2020-03-18 11:47 | HMH.ANESCL ---
[facility] Anesthesia Checklist - Patient Identification Patient Identification: Arm Band - Structural Data Admitted From: Home Planned Operative Procedure/s: colonoscopy Consent for Planned Operative Procedure(s) Verified: Yes Verified Documents: Surgical Consent, History and Physical - NPO Status Verified Time NPO: 00:00 - Additional verifications Anesthesia Reactions: No - Airway Assessment C-Spine Mobility Assessed: Yes (mp2) TMJ Mobility Assessed: Yes Dentition: Edentulous - Neurological Assessment Level of Consciousness: Awake, Alert - Anesthesia Plan Anesthesia Risk discussed: Yes Anesthesia Plan: Verified ASA Class: III Anesthesia Type: MAC [facility] History I have reviewed the patient's past medical history: Yes Medical History: Reports:: Chronic Obstructive Pulmonary Disease (COPD), Coronary Artery Disease, Dementia, Hyperlipidemia, Hypertension, Lung Disease (philipp), Myocardial Infarction, Renal Disease Denies:: Cancer, Diabetes Mellitus Type 1, Diabetes Mellitus Type 2, Internal Pacemaker, MRSA, Seizures *Have you ever received a pneumonia vaccine?: Yes *Have you received a flu vaccine this season?: Yes Other Medical History: Reports: Arthritis Anesthesia experience/problems:: nac Other Surgeries: Yes: Appendectomy, Cardiac Catheterization, Colonoscopy, Coronary Stent. No: Pacemaker Amputation: No Fractures: No - *Social History Smoking Status: Current every day smoker Tobacco Type: cigarettes # Packs/Day (cigarettes): 1 #Yrs smoked (if former smoker): 55 Alcohol Intake: never Alcohol Intake Frequency:: other Substance Use Type: denies use *Occupational Status:: retired Housing: house Household Members: spouse *Travel in the last 8 weeks: None Family Hx:: Unable to obtain
--- NOTE | 2020-03-18 12:02 | P.PCN_ITS ---
[facility] Procedure Note Procedure Note:: Colonoscopy Procedure Report: Colonoscopy with cold snare polypectomy Endoscopist: Jose Benoit II, MD Referring physician: MEL Morgan Date of Procedure: March 18, 2020 Equipment: Olympus 180 variable stiffness pediatric colonoscope Sedation: MAC sedation Indication: Mr. Slater is a 74-year-old gentleman who is here for diagnostic colonoscopy secondary to a positive Cologuard test. He reports no abdominal pain, weight loss, change in his bowel habits or rectal bleeding. He reports no family history of colon cancer. This is his first colonoscopy. Procedure: Prior to the procedure, a history and physical exam was performed, and patient's medications and allergies were reviewed. The risks, benefits and alternatives of the sedation and procedure were discussed with the patient. All questions were answered and informed consent was obtained. The patient was brought to the procedure room. Patient identification and proposed procedure were verified by the physician and the nurse. The patient was placed in a left lateral decubitus position and the scope was passed under direct vision. Throughout the procedure, the patient's blood pressure, pulse, and oxygen saturations were monitored continuously. The colonoscopy was accomplished without difficulty. The patient tolerated the procedure well. Findings: On digital rectal examination there was normal rectal tone. There were no external hemorrhoids. The prostate was 2-3+, moderately firm and mildly asymmetric without nodules. The colonoscope was introduced through the anal canal to the rectum and advanced to the cecum. The ileocecal valve and appendiceal orifice were identified. The scope was advanced a short distance into the ileum which appeared grossly normal. The scope was then withdrawn into the colon. There were 3 diminutive polyps (cecum x1 (3 to 4 mm)/sigmoid x2 (3 and 4 mm)) which were removed via cold snare polypectomy. There were scattered diverticuli throughout the descending and sigmoid colon (LEFT colon). The rectum itself was normal. Upon retroflexion within the rectum there were grade 1-2 internal hemorrhoids. The preparation was fair to good throughout with [place] Preparation Score of 7 out of 9. The cecal time was 12 minutes. Impression: 1. Diminutive colonic polyps x3 2. Left-sided diverticulosis 3. Grade 1-2 internal hemorrhoids Plan: I suspect that these polyps are primarily hyperplastic and perhaps only the one cecal polyp is small adenoma. I am not convinced that he will need continued surveillance based upon these findings and this was a false positive Cologuard. I would encourage bulk fiber supplementation. Based on the digital prostate exam I would continue PSA testing routinely.
--- NOTE | 2020-03-18 13:11 | SUR.PHASEII ---
Pt discharged. Pt without C/o at present. Denies CP, dizziness, weakness at this time. pt to follow up with Nichelle at Dr. Enriquez's tomorrow at 1000. Instructed to go to ER if begins to have any of those symptoms, pt verbalized understanding.
== END 2020-03-18 13:13 | disposition home or self-care (01) ==
LOC: OUTP 10:31
PROVIDERS: PCP Nurse Practitioner; Visit Provider Internal Medicine Gastroenterology
PROC: 0DJD8ZZ Inspection of Lower Intestinal Tract, Via Natural or Artificial Opening Endoscopic (ICD-10-PCS; CPT 45378; principal; 2020-03-18 11:30)
DX: K63.5 Polyp of colon (principal); K57.30 Diverticulosis of large intestine without perforation or abscess without bleeding; K64.0 First degree hemorrhoids; J44.9 Chronic obstructive pulmonary disease, unspecified; I25.10 Atherosclerotic heart disease of native coronary artery without angina pectoris; I10 Essential (primary) hypertension; E78.5 Hyperlipidemia, unspecified; F03.90 Unspecified dementia, unspecified severity, without behavioral disturbance, psychotic disturbance, mood disturbance, and anxiety; G47.33 Obstructive sleep apnea (adult) (pediatric); I25.2 Old myocardial infarction; N28.9 Disorder of kidney and ureter, unspecified; Z72.0 Tobacco use
CPT/HCPCS: 45385; 94640

== ENCOUNTER → 2020-03-19 10:36 | Outpatient (CLI) | payer MEDICARE, OTHER, SELFPAY ==
--- NOTE | 2020-03-19 10:46 | CA_ITS ---
APPROVED REPORT EXAM: Comprehensive 2D, Doppler, and color-flow Echocardiogram Dimethylaniline Sulfator Operator: Zuleyma Casey CRT Ht: 5 ft 10 in Wt: 163lbs BSA: 1.91 BP: 141/56 mmHg Indications: COPD, HTN, HLD, RBBB, STENT, CAD, BEKAH, SOB, SMOKER 2D Dimensions LVOT 1.82 cm (M/F) 1.5-2.5 M-Mode Dimensions RVDd 2.68 cm (0.9-2.6) LVDd 5.41 cm (3.5-5.7) LVDs 3.33 cm (3.5-5.7) IVSd 1.21 cm (0.6-1.1) PWd 1.13 cm (0.6-1.1) EF (Teich) 68.20% FS 38.40% EDV (Teich) 141.90 mL ESV (Teich) 45.10 mL LV Diastology E/A Ratio 0.76 Mitral Valve MV A Velocity 70.00 (40-130 cm/s) Left Ventricle Technically difficult study because of the patient fact in poor acoustic windows, endocardial surfaces are poorly visualized. Left atrium is mildly enlarged, left ventricle is normal size, mild concentric left ventricular hypertrophy, visually estimated ejection fraction 50% with no regional wall motion abnormality. Diastolic parameters are inconclusive. Right Ventricle Right atrium and right ventricle are mildly enlarged with normal contractility. Aortic Valve Aortic valve is minimally thickened and fibrosed, there is no aortic stenosis or aortic insufficiency. Mitral Valve Mitral valve is grossly normal, there is mild mitral regurgitation. Tricuspid Valve Tricuspid valve is grossly normal, there is mild tricuspid regurgitation, tricuspid irritation jet velocity is inadequate for calculation of the right ventricular systolic pressure. Pulmonic Valve Pulmonic valve is poorly visualized. Great Vessels Aortic root is normal size. Pericardium No significant pericardial effusion noted. Conclusion 1. Technically difficult study because of the patient factors and poor acoustic windows. 2. Mild biatrial enlargement, normal left ventricular size, mild concentric left ventricular hypertrophy, visually estimated ejection fraction 50% with no regional wall motion abnormality, diastolic parameters are inconclusive. 3. Mild mitral and tricuspid regurgitation. 4. No significant pericardial effusion noted. Electronically signed by : Vinnie Lopez, 03/19/2020 19:52:02
== END ==
PROVIDERS: PCP Nurse Practitioner; Visit Provider Physician Assistant
DX: F17.200 Nicotine dependence, unspecified, uncomplicated (principal); G47.33 Obstructive sleep apnea (adult) (pediatric); R00.1 Bradycardia, unspecified; R06.02 Shortness of breath; Z95.5 Presence of coronary angioplasty implant and graft; I11.9 Hypertensive heart disease without heart failure; I25.10 Atherosclerotic heart disease of native coronary artery without angina pectoris; I45.10 Unspecified right bundle-branch block; I65.23 Occlusion and stenosis of bilateral carotid arteries; J44.9 Chronic obstructive pulmonary disease, unspecified
CPT/HCPCS: 93225; 93306

== ENCOUNTER → 2020-03-26 11:45 | Outpatient (CLI) | payer MEDICARE, OTHER, SELFPAY ==
[2020-03-26 12:22] LABS: Basophils # 0.1 K/mm3 (0-0.2); Basophils % 0.6 % (0.1-2.0); Eosinophils # 0.3 K/mm3 (0.0-0.4); Eosinophils % 2.8 % (0.1-12.0); Hematocrit 48.5 % (42.0-52.0); Hemoglobin 15.8 g/dL (14.1-18.0); Lymphocytes # 2.3 K/mm3 (0.7-4.5); Lymphocytes % 25.4 % (10-50); Mean Corpuscular HGB Conc 32.7 g/dL (31.8-35.4); Mean Corpuscular Hemoglobin 31.3 pg (27.0-31.2); Mean Corpuscular Volume 95.7 fl (80-94); Mean Platelet Volume 8.7 fl (7.4-10.4); Monocytes # 0.6 K/mm3 (0.1-1.0); Monocytes % 6.7 % (1.7-9.3); Neutrophils # 5.8 K/mm3 (1.8-7.8); Neutrophils % 64.6 % (37.0-80.0); Platelet Count 191 K/mm3 (142-424); Red Blood Count 5.06 M/mm3 (4.60-6.20); Red Cell Distribution Width 13.8 % (11.5-17.5)
[2020-03-26 12:55] LABS: Chloride 100 mmol/L (98-107)
[2020-03-26 12:56] LABS: Potassium 4.9 mmoL/L (3.5-5.1); Sodium 140 mmol/L (136-145)
[2020-03-26 12:58] LABS: Blood Urea Nitrogen 27 mg/dl (9-20); Estimated Glomerular Filt Rate 35 ml/min (>60); GFR (African American) 42 ML/MIN (>60)
[2020-03-26 12:59] LABS: Anion Gap 11.9 mEq/L (5-15); Calcium 9.5 mg/dl (8.4-10.2); Carbon Dioxide 33 mmol/L (22.0-30.0); Glucose 92 mg/dl (74-100); Magnesium 2.2 mg/dl (1.6-2.3)
[2020-03-26 13:21] LABS: Triiodothryronine (T3) Uptake 34 % (23.5-40.5)
[2020-03-26 13:22] LABS: Free Thyroxine Index 3.3 ug/dL (5.93-13.13); T4 (Thyroxine) 9.6 ug/dl (5.53-11.0)
[2020-03-26 13:35] LABS: Thyroid Stimulating Hormone 3.39 uIU/mL (0.465-4.68)
== END ==
PROVIDERS: Visit Provider Physician Assistant
DX: I49.9 Cardiac arrhythmia, unspecified (principal); R53.1 Weakness; E03.9 Hypothyroidism, unspecified; I95.1 Orthostatic hypotension
CPT/HCPCS: 36415; 80048; 83735; 84436; 84443; 84479; 85025

== ENCOUNTER → 2020-09-12 08:48 | Outpatient (CLI) | payer MEDICARE, OTHER, SELFPAY ==
--- NOTE | 2020-09-12 | CA_ITS ---
APPROVED REPORT Supply Assistant: Nicole Colon RVT Laterality: Bilateral Study Quality: Good Indications: Carotid stenosis Risk Factors Hypertension: Smoking Doppler Spectral Velocity Analysis ECA (R) 129.10/12.50 cm/s ECA (L) 174.10/30.60 cm/s dICA (R) 67.30/29.20 cm/s dICA (L) 99.40/28.30 cm/s Negrita (R) 79.30/21.70 cm/s Negrita (L) 110.50/34.30 cm/s pICA (R) 57.60/19.50 cm/s pICA (L) 80.50/23.10 cm/s dCCA (R) 62.00/13.30 cm/s dCCA (L) 62.90/10.50 cm/s pCCA (R) 108.00/12.80 cm/s pCCA (L) 92.80/23.20 cm/s Vert (R) 43.40/18.00 cm/s Vert (L) 70.30/14.60 cm/s ICA/CCA 1.28 ICA/CCA 1.76 Findings Study suggests less than 20% stenosis of the right internal cartoid artery unchanged from the 09/13/19. Study suggests 50-69% stenosis of the left internal cartoid artery unchanged from the 09/13/19. Antegrade flow seen bilateral vertebral arteries. Conclusion Study suggests less than 20% stenosis of the right internal cartoid artery unchanged from the 09/13/19. Study suggests 50-69% stenosis of the left internal cartoid artery unchanged from the 09/13/19. Antegrade flow seen bilateral vertebral arteries. Electronically signed by : Don Barrientos MD 09/12/2020 18:02:52
== END ==
PROVIDERS: PCP Nurse Practitioner; Visit Provider Internal Medicine
DX: I65.23 Occlusion and stenosis of bilateral carotid arteries (principal)
CPT/HCPCS: 93880

== ENCOUNTER → 2020-12-27 11:38 | Outpatient (CLI) | payer MEDICARE, OTHER, SELFPAY | PROVIDERS: PCP Nurse Practitioner; Visit Provider Urology | DX: R00.2 Palpitations (principal) | CPT/HCPCS: 93270 ==

== ENCOUNTER → 2021-01-06 14:08 | Outpatient (CLI) | payer MEDICARE, OTHER, SELFPAY ==
--- NOTE | 2021-01-06 14:13 | CA_ITS ---
APPROVED REPORT EXAM: Comprehensive 2D, Doppler, and color-flow Echocardiogram Slabbing Machine Operator: Za Osborn, RCS, RVS Ht: 5 ft 10 in Wt: 156lbs BSA: 1.88 BP: 110/70 mmHg Rhythm: Irregular Indications: A-FIB, CAD,RBBB, PALPITATIONS, BEKAH, ABN EKG Echo Enhancing Agent Comments: Poor acoustics throughout. 2D Dimensions IVSd 0.96 cm LVEF (Visual) 52.60 % PWd 0.83 cm LA Volume 42.20 mL LVDd 6.54 cm LA Volume Index 22.40 mL/m2 (M/F) 16-34 LVDs 4.73 cm LVOT 2.29 cm (M/F) 1.5-2.5 M-Mode Dimensions LA Diam 3.72 cm (1.9-4.0) LVDd 5.84 cm (3.5-5.7) Ao Diam 3.60 cm (2.0-3.7) LVDs 4.63 cm (3.5-5.7) EF (Teich) 41.60% FS 20.70% EDV (Teich) 169.20 mL TAPSE 2.13 (<1.7) ESV (Teich) 98.80 mL LV Diastology E Decel Time 233.00 (160-240 msec) E/A Ratio 0.79 MED E' 6.50 (< 7 cm/sec) MED A' 9.30 cm/s E'/MED E' Ratio 8.25 (>14) LAT E' 10.40 (<10 cm/sec) LAT A' 13.20 cm/s E/LAT E' Ratio 5.15 (>14) Pulm Vein s 71.00 cm/sec Pulm Vein d 29.00 cm/sec Ar-A Duration 197.00 msec Aortic Valve LVOT Max 83.00 (70-110 cm/s) LVOT VTI 17.62 cm AoV Peak Pato. 97.00 (50-130 cm/s) AO Peak GR. 3.80 mmHg AO Mean GR. 1.90 (<5 mmHg) AO VTI 20.40 (18-25 cm) CABRERA (VTI) 3.56 (2.5-4.5 cm2) Mitral Valve MV A Velocity 68.00 (40-130 cm/s) E/A Ratio 0.79 MV Decel. Time 233.00 (160-240 ms) Pulmonary Valve PV Peak Velocity 72.00 (50-150 cm/s) IA End VMAX 172.00 cm/s Tricuspid Valve TR P. Velocity 238.00 cm/s RAP Estimate 10.00 mmHg RVSP 32.60 mmHg Left Ventricle Left atrium is mildly enlarged, left ventricle is normal size, mild concentric left ventricular hypertrophy, visually estimated ejection fraction approximately 40%, there is marked hypokinesis involving the inferior, inferior basal and basal septal wall. Grade 1 diastolic dysfunction seen without tissue Doppler evidence of raise left atrial pressure. Right Ventricle Right atrium and right ventricle are normal size and contractility. Aortic Valve Aortic valve is minimally thickened and fibrosed, there is no aortic stenosis or aortic insufficiency. Mitral Valve Mitral valve leaflets are minimally thickened, there is mild mitral regurgitation. Tricuspid Valve Tricuspid valve grossly normal, there is mild tricuspid regurgitation, tricuspid regurgitation jet velocity is inadequate for calculation of the right ventricular systolic pressure. Pulmonic Valve Pulmonic valve is poorly visualized. Great Vessels Aortic root is normal size. Pericardium No significant pericardial effusion noted. Conclusion 1. Mildly enlarged left atrium, normal left ventricular size, mild concentric left ventricular hypertrophy, visually estimated ejection fraction 40% with segmental wall motion abnormality described above, grade 1 diastolic dysfunction seen without tissue Doppler evidence of raise left atrial pressure. 2. Mild mitral and tricuspid regurgitation. 3. No significant pericardial effusion noted. Electronically signed by : Vinnie Lopez, 01/06/2021 16:57:59
== END ==
PROVIDERS: PCP Nurse Practitioner; Visit Provider Urology
DX: R00.2 Palpitations (principal)
CPT/HCPCS: 93306

== ENCOUNTER → 2021-02-05 19:59 | Outpatient (CLI) | payer MEDICARE, OTHER, SELFPAY | PROVIDERS: PCP Nurse Practitioner; Visit Provider Specialist | DX: G47.33 Obstructive sleep apnea (adult) (pediatric) (principal) | CPT/HCPCS: 95811 ==

== ENCOUNTER → 2021-02-17 13:08 | Outpatient (CLI) | payer MEDICARE, OTHER, SELFPAY ==
[2021-02-17 13:27] LABS: Basophils # 0.1 K/mm3 (0-0.2); Basophils % 0.6 % (0.1-2.0); Eosinophils # 0.8 K/mm3 (0.0-0.4); Eosinophils % 9.4 % (0.1-12.0); Hematocrit 46.6 % (42.0-52.0); Hemoglobin 15.2 g/dL (14.1-18.0); Lymphocytes # 1.6 K/mm3 (0.7-4.5); Lymphocytes % 17.8 % (10-50); Mean Corpuscular HGB Conc 32.5 g/dL (31.8-35.4); Mean Corpuscular Hemoglobin 29.9 pg (27.0-31.2); Mean Corpuscular Volume 92.1 fl (80-94); Mean Platelet Volume 9.1 fl (7.4-10.4); Monocytes # 0.6 K/mm3 (0.1-1.0); Monocytes % 6.6 % (1.7-9.3); Neutrophils # 5.8 K/mm3 (1.8-7.8); Neutrophils % 65.5 % (37.0-80.0); Platelet Count 159 K/mm3 (142-424); Red Blood Count 5.06 M/mm3 (4.60-6.20); Red Cell Distribution Width 13.5 % (11.5-17.5); White Blood Count 8.9 K/mm3 (4.8-10.8)
[2021-02-17 14:41] LABS: Chloride 101 mmol/L (98-107); Potassium 4.3 mmoL/L (3.5-5.1); Sodium 137 mmol/L (136-145)
[2021-02-17 14:44] LABS: Anion Gap 15.3 mEq/L (5-15); Blood Urea Nitrogen 22 mg/dl (9-20); Calcium 8.8 mg/dl (8.4-10.2); Carbon Dioxide 25 mmol/L (22.0-30.0); Estimated Glomerular Filt Rate 33 ml/min (>60); GFR (African American) 40 ML/MIN (>60); Glucose 111 mg/dl (74-100)
== END ==
PROVIDERS: Visit Provider Urology
DX: Z01.812 Encounter for preprocedural laboratory examination; Z20.822 Contact with and (suspected) exposure to COVID-19; R06.02 Shortness of breath; I42.9 Cardiomyopathy, unspecified; I47.2 Ventricular tachycardia; E78.5 Hyperlipidemia, unspecified; I11.9 Hypertensive heart disease without heart failure; I25.10 Atherosclerotic heart disease of native coronary artery without angina pectoris; F17.200 Nicotine dependence, unspecified, uncomplicated; I65.29 Occlusion and stenosis of unspecified carotid artery; Z95.5 Presence of coronary angioplasty implant and graft
CPT/HCPCS: 36415; 80048; 85025; U0003

== ENCOUNTER 2021-02-20 08:57 | Day surgery (SDC) | payer MEDICARE, OTHER, SELFPAY ==
[2021-02-20] VITALS (9 sets, daily range): BP systolic 97–152; BP diastolic 53–80; PULSE 40–63; RESP 18–20; O2SAT 95–100; BMI 22.1
--- NOTE | 2021-02-20 | IR_ITS ---
APPROVED REPORT Patient Location: Outpatient Staff Assistant: BRIGITTE Minaya RT (R) PROCEDURES Left heart catheterization Left ventriculogram Selective coronary angiogram INDICATION Ventricular tachycardia Informed consent was obtained prior to the procedure. COMPLICATIONS NONE Estimated Blood Loss: LESS THAN 10 ML TECHNIQUE One percent lidocaine used to anesthetize the right anterior aspect of the wrist. The right radial artery was accessed via the Seldinger technique. A 6 Romanian sheath was placed in the right radial artery. 2.5 mg of verapamil, 800 mcg of nitroglycerin, 1mg Lidocaine and 5000 U Heparin were given through the arterial sheath. The trap catheter was also used to perform left heart catheterization, left ventriculogram and selective coronary angiogram. At the end of the procedure the sheath was removed good hemostasis was achieved using Traclet band, patient was transferred to the postop holding area in stable condition. ANGIOGRAPHIC RESULTS The left main artery Normal The left anterior descending artery Has proximal and mid vessel diffuse 20 and 30% stenoses The circumflex artery Is nondominant and has mild mid proximal mid vessel 10 to 20% stenosis. The terminal obtuse marginal artery which is small has a 40 and 50% stenosis both in areas less than 1.5 mm in diameter The right coronary artery Is a dominant vessel and has proximal 30% followed by additional several 30% stenoses in the mid vessel 30 to 40% stenosis. The YUEN ventriculogram reveals Reduced at 50% The left ventricular end-diastolic pressure 10 mmHg IMPRESSION Nonflow limiting coronary artery disease as described above Preserved ejection fraction of 50% Normal left ventricular end-diastolic pressure PLAN 1. Continue medical management Electronically signed by : Rashaad Enriquez, 02/20/2021 11:08:25
== END 2021-02-20 13:36 | disposition home or self-care (01) ==
LOC: CATHLAB 08:59
PROVIDERS: PCP Nurse Practitioner; Visit Provider Internal Medicine
DX: I47.2 Ventricular tachycardia (principal); I25.10 Atherosclerotic heart disease of native coronary artery without angina pectoris; I42.9 Cardiomyopathy, unspecified; Z95.5 Presence of coronary angioplasty implant and graft; I65.23 Occlusion and stenosis of bilateral carotid arteries; N18.30 Chronic kidney disease, stage 3 unspecified; I13.10 Hypertensive heart and chronic kidney disease without heart failure, with stage 1 through stage 4 chronic kidney disease, or unspecified chronic kidney disease; E11.22 Type 2 diabetes mellitus with diabetic chronic kidney disease; Z79.84 Long term (current) use of oral hypoglycemic drugs; Z79.899 Other long term (current) drug therapy
CPT/HCPCS: 93458; 99152; C1725; C1769; J1644; Q9967

== ENCOUNTER → 2021-05-30 09:02 | Outpatient (CLI) | payer MEDICARE, OTHER, SELFPAY | PROVIDERS: Visit Provider Dermatology | DX: L20.89 Other atopic dermatitis (principal); Z79.899 Other long term (current) drug therapy ==

== ENCOUNTER → 2021-08-22 14:30 | Outpatient (CLI) | payer MEDICARE, OTHER, SELFPAY ==
--- NOTE | 2021-08-22 14:32 | CA_ITS ---
APPROVED REPORT EXAM: Comprehensive 2D, Doppler, and color-flow Echocardiogram Front Elevator Operator: Nisha Mckeon RT(R) Ht: 5 ft 10 in Wt: 153lbs BSA: 1.86 BP: 104/62 mmHg Indications: COPD, smoker, SOB, HTN, hyperlipidemia, CAD, Bigeminy, CM, hx VTACH 2D Dimensions LVOT 2.01 cm (M/F) 1.5-2.5 LVEF (Hayes's) 48.60 % M: 52 - 72 LV Volume 59.90 mL M: 62 - 150 LV Volume Index 32.20 mL/m2 M: 34 - 74 M-Mode Dimensions RVDd 2.89 cm (0.9-2.6) LA Diam 1.98 cm (1.9-4.0) LVDd 5.26 cm (3.5-5.7) Ao Diam 3.55 cm (2.0-3.7) LVDs 3.81 cm (3.5-5.7) IVSd 0.72 cm (0.6-1.1) PWd 0.84 cm (0.6-1.1) EF (Teich) 53.20% FS 27.60% EDV (Teich) 133.00 mL ESV (Teich) 62.30 mL LV Diastology E Decel Time 190.00 (160-240 msec) E/A Ratio 0.9 MED E' 4.90 (< 7 cm/sec) E'/MED E' Ratio 10.92 (>14) LAT E' 4.30 (<10 cm/sec) E/LAT E' Ratio 12.44 (>14) Mitral Valve MV E Max Pato. 54.00 (40-130 cm/s) MV A Velocity 59.00 (40-130 cm/s) E/A Ratio 0.91 MV Decel. Time 190.00 (160-240 ms) MV PHT 56.00 ms Left Ventricle Technically difficult study because of the patient fact in poor acoustic windows, repeat study with Definity contrast is recommended. Left atrium is mildly enlarged, left ventricle is normal size, mild concentric left ventricular hypertrophy, visually estimated ejection fraction is probably 40%, there appears to be moderate hypokinesis involving the inferior basal and basal septal wall, Definity contrast is recommended for further evaluation of segmental wall motion abnormality. Grade 1 diastolic dysfunction seen without tissue Doppler evidence of raise left atrial pressure. Right Ventricle Right atrium and right ventricle are normal size and contractility. Aortic Valve Aortic valve is minimally thickened and calcified without aortic stenosis or aortic insufficiency. Mitral Valve Mitral valve grossly normal, there is mild mitral regurgitation. Tricuspid Valve Tricuspid valve grossly normal, there is mild tricuspid regurgitation, tricuspid regurgitation jet velocity is inadequate for calculation of the right ventricular systolic pressure. Pulmonic Valve Pulmonic valve is poorly visualized. Great Vessels Aortic root is normal size. Inferior vena cava is poorly visualized. Pericardium No significant pericardial effusion noted. Conclusion 1. Technically difficult study because of the patient factors and poor acoustic windows, Definity contrast is recommended, normal left ventricular size, mild concentric left ventricular hypertrophy, probably estimated ejection fraction 40% with segmental wall motion abnormalities described above, grade 1 diastolic dysfunction seen without tissue Doppler evidence of raise left atrial pressure. 2. Mild mitral and tricuspid regurgitation. 3. No significant pericardial effusion noted. Electronically signed by : Vinnie Lopez MD 08/25/2021 20:27:12
== END ==
PROVIDERS: PCP Nurse Practitioner; Visit Provider Physician Assistant
DX: F17.200 Nicotine dependence, unspecified, uncomplicated; I11.9 Hypertensive heart disease without heart failure; I25.10 Atherosclerotic heart disease of native coronary artery without angina pectoris; I42.9 Cardiomyopathy, unspecified; I47.2 Ventricular tachycardia; I49.8 Other specified cardiac arrhythmias; I65.23 Occlusion and stenosis of bilateral carotid arteries; N18.30 Chronic kidney disease, stage 3 unspecified; R06.02 Shortness of breath; Z95.5 Presence of coronary angioplasty implant and graft; E78.49 Other hyperlipidemia
CPT/HCPCS: 93306

== ENCOUNTER → 2021-09-30 12:33 | Outpatient (CLI) | payer MEDICARE, OTHER, SELFPAY ==
--- NOTE | 2021-09-30 12:40 | XR_ITS ---
FINAL REPORT CLINICAL HISTORY: LT ANKLE PAIN..no trauma FINDINGS: LEFT ANKLE Three views demonstrate no acute fracture or dislocation. The joint spaces appear normal. There is a small plantar spur. No soft tissue abnormality is seen. IMPRESSION: No acute process. Reviewed, Interpreted and Dictated by Noah Patel MD Transcribed by Naila Rivera Authenticated by Noah Patel MD on 09/30/2021 02:42:44 PM [facility]
--- NOTE | 2021-09-30 12:40 | XR_ITS ---
FINAL REPORT CLINICAL HISTORY: LT FOOT PAIN..no trauma FINDINGS: LEFT FOOT Three views demonstrate no acute fracture or dislocation. There is moderate narrowing of the first metatarsophalangeal joint. Osteophytes are seen along the lateral joint margin. There is a small plantar spur. IMPRESSION: Degenerative and chronic changes as above. Reviewed, Interpreted and Dictated by Noah Patel MD Transcribed by Naila Rivera Authenticated by Noah Patel MD on 09/30/2021 02:42:49 PM [facility]
== END ==
PROVIDERS: PCP Nurse Practitioner; Visit Provider Nurse Practitioner
DX: M25.572 Pain in left ankle and joints of left foot (principal); M79.672 Pain in left foot
CPT/HCPCS: 73600; 73630

== ENCOUNTER → 2021-10-31 10:51 | Outpatient (CLI) | payer MEDICARE, OTHER, SELFPAY | PROVIDERS: PCP Nurse Practitioner; Visit Provider Nurse Practitioner Family | DX: I42.9 Cardiomyopathy, unspecified (principal); J44.9 Chronic obstructive pulmonary disease, unspecified; Z72.0 Tobacco use | CPT/HCPCS: 94762 ==

== ENCOUNTER → 2021-11-24 11:59 | Outpatient (CLI) | payer MEDICARE, OTHER, SELFPAY ==
--- NOTE | 2021-11-24 12:06 | CA_ITS ---
FINAL REPORT TECHNIQUE: Color Doppler, duplex Doppler and mckee scale sonography of the bilateral neck arterial vasculature was performed. Velocities were measured in the carotid arteries. Stenosis evaluation based on the validated velocity criteria. CLINICAL HISTORY: JOHAN COMPARISON: Prior exam is not available for comparison. FINDINGS: The peak systolic velocity of the right common carotid artery is 66 cm/s. The peak systolic velocity of the right internal carotid artery is 58 cm/s and end diastolic velocity 20 cm/s. The ICA/CCA ratio is 1.08. A mild amount of plaque is present. The right external carotid artery is patent. The right vertebral artery is patent with antegrade flow. The peak systolic velocity of the left common carotid artery is 64 cm/s. The peak systolic velocity of the left internal carotid artery is 195 cm/s and end diastolic velocity 61 cm/s. The ICA/CCA ratio is 3.04. A moderate amount of plaque is present. The left external carotid artery is patent.The left vertebral artery is patent with antegrade flow. IMPRESSION: Less than 50% right carotid stenosis. 50-69% left carotid stenosis. Bilateral patent vertebral arteries with antegrade flow. If indicated, CTA or MRA could further evaluate. Reviewed, Interpreted and Dictated by Noah Patel MD Transcribed by Samreen Lees Authenticated by Noah Patel MD on 11/24/2021 02:30:03 PM [facility]
== END ==
PROVIDERS: PCP Nurse Practitioner; Visit Provider Physician Assistant
DX: F03.90 Unspecified dementia, unspecified severity, without behavioral disturbance, psychotic disturbance, mood disturbance, and anxiety (principal); G47.33 Obstructive sleep apnea (adult) (pediatric); I11.9 Hypertensive heart disease without heart failure; I25.10 Atherosclerotic heart disease of native coronary artery without angina pectoris; I42.9 Cardiomyopathy, unspecified; I65.23 Occlusion and stenosis of bilateral carotid arteries; J44.9 Chronic obstructive pulmonary disease, unspecified; R41.3 Other amnesia; Z72.0 Tobacco use
CPT/HCPCS: 93880

== ENCOUNTER → 2021-12-31 12:26 | Outpatient (CLI) | payer MEDICARE, OTHER, SELFPAY ==
--- NOTE | 2021-12-31 | US_ITS ---
FINAL REPORT CLINICAL HISTORY: Previous smoker, HTN, DM, hyperlipidemia, previous CO, CAD, bilateral claudication, bilateral rest pain. FINDINGS: ANKLE-BRACHIAL PRESSURE INDICES Pressure indices are as follows: RIGHT LOWER EXTREMITY: Ankle-brachial pressure index: 1.09 Comments: Normal LEFT LOWER EXTREMITY: Ankle-brachial pressure index: 1.01 Comments: Normal CONCLUSION: No evidence of significant obstructive peripheral vascular disease of the lower extremities Reviewed, Interpreted and Dictated by Noah Patel MD Transcribed by Samreen Lees Authenticated by Noah Patel MD on 12/31/2021 03:28:04 PM [facility]
== END ==
PROVIDERS: PCP Nurse Practitioner; Visit Provider Nurse Practitioner
DX: R09.89 Other specified symptoms and signs involving the circulatory and respiratory systems (principal); M79.605 Pain in left leg; M79.604 Pain in right leg
CPT/HCPCS: 93923

== ENCOUNTER 2022-01-06 12:15 | Emergency (ER) | payer MEDICARE, OTHER, SELFPAY ==
[2022-01-06 12:16] VITALS: BP 113/71; PULSE 75; RESP 11; TEMP 36.7; O2SAT 96; BMI 21.4
--- NOTE | 2022-01-06 12:20 | HMH.EDGENADL ---
ED Disposition Clinical Impression: Dehydration Gout attack Qualifiers: Gout site: foot Gout etiology: unspecified cause Laterality: right Qualified Code(s): M10.9 - Gout, unspecified Disposition: Home, Self-Care Condition on Discharge: Good Instructions: DI for Dehydration -- Adult, DI for Gout Additional Instructions: follow up PCP, return here for worse or any concerns Prescriptions: predniSONE [Prednisone 20mg Tab] 20 mg PO BID 3 Days #6 tab Transmission Status: Pending to [facility] Referrals: Katrin Cardoza PA [Primary Care Provider] - - Critical Care Critical Care Time: No Attestation: On , the high probability of a clinically significant, sudden or life threatening deterioration of the following system(s) required my full and direct attention, intervention and personal management. The time I documented below is in addition to time spent performing reported procedures but includes the following listed in this critical care notation. Medical Decision Making - Medical Records Medical records reviewed: Yes: I reviewed the patient's medical records. - Wong Inquiry Pt receiving controlled substance: No Vital Signs: 01/06/22 12:16 01/06/22 12:34 01/06/22 13:02 Temperature 98.1 F Temperature Source Oral Pulse Rate 74 63 Pulse Rate [Right Radial] 75 Respiratory Rate 11 L 21 24 Blood Pressure 101/66 L 109/64 L Blood Pressure [Right Arm] 113/71 Blood Pressure Mean [Right Arm] 85 Blood Pressure Source Automatic Cuff Automatic Cuff Blood Pressure Source [Right Arm] Automatic Cuff Blood Pressure Position Sitting Sitting Blood Pressure Position [Right Arm] Sitting 02 Sat by Pulse Oximetry 96 95 95 Oxygen Delivery Method Room Air Room Air Room Air 01/06/22 13:45 Temperature Temperature Source Pulse Rate 59 L Pulse Rate [Right Radial] Respiratory Rate 13 Blood Pressure 131/68 Blood Pressure [Right Arm] Blood Pressure Mean [Right Arm] Blood Pressure Source Automatic Cuff Blood Pressure Source [Right Arm] Blood Pressure Position Sitting Blood Pressure Position [Right Arm] 02 Sat by Pulse Oximetry 100 Oxygen Delivery Method Room Air - Lab Data Lab Results 01/06/22 12:42: WBC 9.7, RBC 4.64, Hgb 14.2, Hct 42.9, MCV 92.4, MCH 30.7, MCHC 33.2, RDW 14.0, Plt Count 251, MPV 9.4, Neut % (Auto) 66.0, Lymph % (Auto) 15.3, Billings % (Auto) 7.5, Eos % (Auto) 10.1, Baso % (Auto) 1.0, Neut # (Auto) 6.4, Lymph # (Auto) 1.5, Billings # (Auto) 0.7, Eos # (Auto) 1.0 H, Baso # (Auto) 0.1 01/06/22 12:42: Sodium 139, Potassium 3.5, Chloride 99, Carbon Dioxide 32 H, Anion Gap 11.5, BUN 12, Creatinine 1.90 H, Estimated Creat Clear 33, Estimated GFR 35 L, Est GFR ( Amer) 42 L, Glucose 141 H, Calcium 9.2, Total Bilirubin 0.9, AST 22, ALT 15, Alkaline Phosphatase 103, Total Protein 6.3, Albumin 3.6, Globulin 2.7, Albumin/Globulin Ratio 1.3 Result diagrams: 01/06/22 12:42 01/06/22 12:42 Orders (Tests/Meds): ED MEDICATIONS Discontinued Medications Generic Name Dose Route Start Last Admin Trade Name Sauravq PRN Reason Stop Dose Admin Lactated Ringer's 1,000 mls @ 999 mls/hr 01/06/22 12:30 01/06/22 12:47 Lactated Ringer's 1000 Ml Bag IV 01/06/22 13:30 999 mls/hr .Q1H1M MARCELLUS Administration Methylprednisolone Sodium Succinate 80 mg 01/06/22 13:54 01/06/22 13:57 Methylprednisolone Sod Succ 125mg Vial IV 01/06/22 13:55 80 mg ONCE ONE Administration Medical Decision Narrative: 2pm reevall vss, appears well, feels better, daughter requesting steroid shot for poss rt foot gout, agreed, plan to f/u pcp and retutrn for worse General Adult HPI - General Stated complaint: low bp Time Seen by Provider: 01/06/22 12:28 Source of Information: Relative Limitations: No Limitations - History of Present Illness HPI narrative: sent by pcp for possibly needs fluis from diarrhea and low bp today in office daughter at bedside agreed to plan Radiati
--- NOTE | 2022-01-06 12:20 | PC.NURSE ---
ASHANTI Jarvis and Camryn, Baggage Inspector at BS
--- NOTE | 2022-01-06 12:25 | PC.NURSE ---
DAKOTA TAYLOR at ; daughter at
--- NOTE | 2022-01-06 12:30 | PC.NURSE ---
ED MD at speaking with patient and daughter again at this time
[2022-01-06 12:34] VITALS: BP 101/66; PULSE 74; RESP 21; O2SAT 95
[2022-01-06 12:57] LABS: Basophils # 0.1 K/mm3 (0-0.2); Eosinophils % 10.1 % (0.1-12.0); Hematocrit 42.9 % (42.0-52.0); Hemoglobin 14.2 g/dL (14.1-18.0); Lymphocytes # 1.5 K/mm3 (0.7-4.5); Lymphocytes % 15.3 % (10-50); Mean Corpuscular HGB Conc 33.2 g/dL (31.8-35.4); Mean Corpuscular Hemoglobin 30.7 pg (27.0-31.2); Mean Corpuscular Volume 92.4 fl (80-94); Mean Platelet Volume 9.4 fl (7.4-10.4); Monocytes # 0.7 K/mm3 (0.1-1.0); Monocytes % 7.5 % (1.7-9.3); Neutrophils # 6.4 K/mm3 (1.8-7.8); Platelet Count 251 K/mm3 (142-424); Red Blood Count 4.64 M/mm3 (4.60-6.20); White Blood Count 9.7 K/mm3 (4.8-10.8)
[2022-01-06 12:58] LABS: Chloride 99 mmol/L (98-107)
[2022-01-06 12:59] LABS: Potassium 3.5 mmoL/L (3.5-5.1); Sodium 139 mmol/L (136-145)
[2022-01-06 13:01] LABS: Alanine Aminotransferase 15 U/L (12-78); Aspartate Amino Transferase 22 U/L (17-59); Blood Urea Nitrogen 12 mg/dl (9-20); Creatinine Clearance Estimated 33 mL/min (50-200); Estimated Glomerular Filt Rate 35 ml/min (>60); GFR (African American) 42 ML/MIN (>60)
[2022-01-06 13:02] VITALS: BP 109/64; PULSE 63; RESP 24; O2SAT 95
[2022-01-06 13:02] LABS: Albumin Level 3.6 g/dl (3.5-5.0); Albumin/Globulin Ratio 1.3 (1.1-1.8); Alkaline Phosphatase 103 U/L (38-126); Anion Gap 11.5 mEq/L (5-15); Bilirubin,Total 0.9 mg/dl (0.2-1.3); Calcium 9.2 mg/dl (8.4-10.2); Carbon Dioxide 32 mmol/L (22.0-30.0); Globulin 2.7 g/dL (1.3-3.2); Glucose 141 mg/dl (74-100); Total Protein,Serum 6.3 g/dl (6.3-8.2)
[2022-01-06 13:45] VITALS: BP 131/68; PULSE 59; RESP 13; O2SAT 100
--- NOTE | 2022-01-06 13:51 | PC.NURSE ---
ED MD at for update on POC
[2022-01-06 14:08] VITALS: BP 134/74; PULSE 62; RESP 15; TEMP 36.7; O2SAT 97
== END 2022-01-06 14:11 | disposition home or self-care (01) ==
PROVIDERS: Emergency Provider Emergency Medicine; PCP Physician Assistant
DX: M10.9 Gout, unspecified (principal); I95.9 Hypotension, unspecified; I10 Essential (primary) hypertension; I25.10 Atherosclerotic heart disease of native coronary artery without angina pectoris; N28.9 Disorder of kidney and ureter, unspecified; E78.5 Hyperlipidemia, unspecified; J98.4 Other disorders of lung; M19.90 Unspecified osteoarthritis, unspecified site; J44.9 Chronic obstructive pulmonary disease, unspecified; Z79.01 Long term (current) use of anticoagulants; Z79.82 Long term (current) use of aspirin; Z79.899 Other long term (current) drug therapy; Z88.0 Allergy status to penicillin; Z88.8 Allergy status to other drugs, medicaments and biological substances; Z95.5 Presence of coronary angioplasty implant and graft; Z87.891 Personal history of nicotine dependence
CPT/HCPCS: 80053; 85025; 96361; 96374; 96375; 99284

== ENCOUNTER 2022-01-18 12:50 | Emergency (ER) | payer MEDICARE, OTHER, SELFPAY ==
[2022-01-18 13:06] VITALS: PULSE 64; RESP 18; O2SAT 95; BMI 20.7
[2022-01-18 13:15] VITALS: BP 102/67; PULSE 64; RESP 18; TEMP 36.8; O2SAT 95; BMI 20.7
--- NOTE | 2022-01-18 13:17 | XR_ITS ---
PROCEDURE INFORMATION: Exam: XR Left Ankle Exam date and time: 01/18/2022 1:21 PM Age: 76 years old Clinical indication: Pain; Ankle; Left; Additional info: Fall TECHNIQUE: Imaging protocol: XR Left ankle. Views: 3 or more views. COMPARISON: CR XR ANKLE LT 2V 09/30/2021 12:47 PM FINDINGS: Bones/joints: Suspected avulsion fracture along the distal aspect superior talus, with 4 mm ossific density not evident on previous study. Soft tissues: Lateral soft tissue swelling. IMPRESSION: 1. Suspected avulsion fracture along the distal aspect superior talus, with 4 mm ossific density not evident on previous study. 2. Lateral soft tissue swelling.
--- NOTE | 2022-01-18 13:17 | XR_ITS ---
PROCEDURE INFORMATION: Exam: XR Right Ribs Exam date and time: 01/18/2022 1:16 PM Age: 76 years old Clinical indication: Chest wall pain; Right; Additional info: Fall TECHNIQUE: Imaging protocol: XR Right ribs. Views: 2 views. COMPARISON: CR [id number] XR chest portable 09/30/2018 5:31 PM FINDINGS: Bones/joints: No acute rib fracture. Soft tissues: Normal. IMPRESSION: No acute findings.
--- NOTE | 2022-01-18 13:17 | XR_ITS ---
PROCEDURE INFORMATION: Exam: XR Left Foot Exam date and time: 01/18/2022 1:22 PM Age: 76 years old Clinical indication: Pain; Foot; Left; Additional info: Fall TECHNIQUE: Imaging protocol: XR Left foot. Views: 3 or more views. COMPARISON: CR XR FOOT LT MIN 3V 09/30/2021 12:47 PM FINDINGS: Bones/joints: Suspected avulsion fracture along the distal aspect superior talus, with 4 mm ossific density not evident on previous study. Recommend correlation with patient pain. Soft tissues: Normal. IMPRESSION: Suspected avulsion fracture along the distal aspect superior talus, with 4 mm ossific density not evident on previous study. Recommend correlation with patient pain.
--- NOTE | 2022-01-18 13:17 | HMH.EDUTC ---
[facility] [place] Clinical Impression: Ankle fracture, left Qualifiers: Encounter type: initial encounter Fracture type: closed Qualified Code(s): S82.892A - Other fracture of left lower leg, initial encounter for closed fracture Rib contusion Qualifiers: Encounter type: initial encounter Laterality: right Qualified Code(s): S20.211A - Contusion of right front wall of thorax, initial encounter Disposition: Home, Self-Care Condition on Discharge: Good Instructions: DI for Ankle Fracture, DI for Rib Contusion Additional Instructions: Weightbearing as tolerated rest Ice with cold pack for 20 minutes remove may repeat for comfort every hour walking boot for support and swelling no less in the shower. Be sure not too tight but not to lose either Elevate with ankle above your heart as much as possible to help reduce swelling and therefore pain Ibuprofen every 6 hours as needed for pain or inflammation. If needs something more you can take Tylenol every 4 hours as needed as long as her primary care has told he was okayed for you to take both. If improving any do not need to follow-up you can bring begin exercising 2-3 weeks after injury. Follow-up immediately if new or worsening symptoms or no noticeable improvement over the next 3-5 days. call ortho tomorrow for appointment Referrals: Delilah Cardoza APRN [Primary Care Provider] - Pastora Jackson DPM [Staff Physician] - Time of Disposition: 14:17 Medical Decision Making - Wong Inquiry Pt receiving controlled substance: No Vital Signs: 01/18/22 13:06 01/18/22 13:15 Temperature 98.2 F Temperature Source Oral Pulse Rate [Left Radial] 64 64 Respiratory Rate 18 18 Blood Pressure [Right Arm] 102/67 L Blood Pressure Mean [Right Arm] 78 Blood Pressure Source [Right Arm] Automatic Cuff Blood Pressure Position [Right Arm] Sitting 02 Sat by Pulse Oximetry 95 95 Oxygen Delivery Method Room Air Room Air [facility] [place] HPI - General Chief complaint: Urgent Treatment Center Stated complaint: AO [id number] left foot injury and ribs,fell at home Time Seen by Provider: 01/18/22 13:17 Mode of Arrival: Wheelchair Source of Information: Patient Limitations: No Limitations Description of Symptoms (Recalled from Triage Doc. by RN): c/o left ankle pain and right ribs and he lost his balance and fell. Denies hitting his head or any LOC - History of Present Illness Provider Complaint: 76 yr old male presents for c/o left ankle pain and right ribs and he lost his balance and fell last pm. Denies hitting his head or any LOC - Related Data Home Medications Medication Instructions Recorded Confirmed levothyroxine 50 mcg tablet 50 mcg PO DAILY 08/25/18 11/19/21 Aspirin [Aspirin 81mg EC Tab] 81 mg PO DAILY 09/30/18 11/19/21 mirabegron 50 mg tablet,extended 50 mg PO DAILY 30 Days #30 tab 03/13/19 11/19/21 release 24 hr atorvastatin 80 mg tablet 80 mg PO DAILY tab 09/11/19 11/19/21 losartan 25 mg tablet 25 mg PO DAILY tab 09/11/19 11/19/21 Cyanocobalamin/Folic Acid [Vitamin 1 each PO DAILY 11/16/19 11/19/21 X38-Pcyhm Acid Tablet] Ergocalciferol (Vitamin D2) 400 unit PO DAILY 11/16/19 11/19/21 [Vitamin D] Trazodone HCl 100 mg PO DAILY 11/16/19 11/19/21 cholecalciferol (vitamin D3) 125 5,000 unit PO DAILY tab 02/19/20 11/19/21 mcg (5,000 unit) tablet mirtazapine 15 mg tablet 15 mg PO DAILY tab 02/19/20 11/19/21 escitalopram oxalate 5 mg tablet 5 mg PO DAILY tab 03/19/20 11/19/21 glipizide 10 mg tablet 10 mg PO BID tab 12/09/20 11/19/21 dupilumab 300 mg/2 mL subcutaneous 300 mg SQ Q2W 06/16/21 11/19/21 pen injector Previous Rx's Medication Instructions Recorded melatonin 5 mg tablet 5 mg PO HS PRN 30 Days #30 tab 12/05/18 donepezil 5 mg tablet 5 mg PO HS #30 tab 09/16/21 memantine 10 mg tablet 10 mg PO BID #180 tab 09/16/21 clopidogrel 75 mg tablet See Rx Instructions .ROUTE 12/09/21 .COMPLEX #90 tab predniSONE [Prednisone 20mg 20 mg PO BID 3 Days #6 tab
[2022-01-18 14:23] VITALS: BP 102/67; PULSE 64; RESP 18; TEMP 36.8; O2SAT 95
== END 2022-01-18 14:32 | disposition home or self-care (01) ==
PROVIDERS: Emergency Provider Nurse Practitioner Family; PCP Nurse Practitioner
DX: S82.892A Other fracture of left lower leg, initial encounter for closed fracture (principal); S20.211A Contusion of right front wall of thorax, initial encounter; R94.31 Abnormal electrocardiogram [ECG] [EKG]; R00.1 Bradycardia, unspecified; I45.2 Bifascicular block; I45.10 Unspecified right bundle-branch block; I42.9 Cardiomyopathy, unspecified; J98.4 Other disorders of lung; I25.10 Atherosclerotic heart disease of native coronary artery without angina pectoris; I25.2 Old myocardial infarction; N28.9 Disorder of kidney and ureter, unspecified; E78.5 Hyperlipidemia, unspecified; I10 Essential (primary) hypertension; M19.90 Unspecified osteoarthritis, unspecified site; J44.9 Chronic obstructive pulmonary disease, unspecified; F03.90 Unspecified dementia, unspecified severity, without behavioral disturbance, psychotic disturbance, mood disturbance, and anxiety; Z79.02 Long term (current) use of antithrombotics/antiplatelets; Z79.82 Long term (current) use of aspirin; Z79.899 Other long term (current) drug therapy; Z88.0 Allergy status to penicillin; Z88.8 Allergy status to other drugs, medicaments and biological substances; Z87.891 Personal history of nicotine dependence; Z95.5 Presence of coronary angioplasty implant and graft; Z95.0 Presence of cardiac pacemaker; Z82.49 Family history of ischemic heart disease and other diseases of the circulatory system; W19.XXXA Unspecified fall, initial encounter
CPT/HCPCS: 71100; 73610; 73630; 99213; G0463

== ENCOUNTER 2022-01-26 17:05 | Emergency (ER) | payer MEDICARE, OTHER, SELFPAY ==
[2022-01-26 17:50] VITALS: BP 106/78; PULSE 86; RESP 18; TEMP 36.6; O2SAT 97; BMI 20.3
--- NOTE | 2022-01-26 18:15 | HMH.EDUTC ---
[facility] [place] Disposition Clinical Impression: Gout attack Qualifiers: Gout site: foot Gout etiology: unspecified cause Laterality: unspecified laterality Qualified Code(s): M10.9 - Gout, unspecified Disposition: Home, Self-Care Condition on Discharge: Good Instructions: Gout, DI for Gout Additional Instructions: Start oral steriods tomorrow Follow up with your Family Doctor for further treatment and evaluation for gout Return if needed Straight to ER if any life threatening symptoms Prescriptions: predniSONE [Prednisone 20mg Tab] 20 mg PO BID 3 Days #6 tab Transmission Status: Received by [facility] Referrals: Delilah Cardoza APRN [Primary Care Provider] - As needed Medical Decision Making - Wong Inquiry Pt receiving controlled substance: No Wong was queried for this patient: No Vital Signs: 01/26/22 17:50 01/26/22 19:11 Temperature 97.9 F 97.9 F Temperature Source Oral Pulse Rate 86 Pulse Rate [Right Brachial] 86 Respiratory Rate 18 18 Blood Pressure 106/78 L Blood Pressure [Right Arm] 106/78 L Blood Pressure Mean [Right Arm] 87 Blood Pressure Source [Right Arm] Automatic Cuff Blood Pressure Position [Right Arm] Sitting 02 Sat by Pulse Oximetry 97 Oxygen Delivery Method Room Air - Lab Data Lab Results 01/26/22 18:13: Uric Acid 8.4 Orders (Tests/Meds): ED MEDICATIONS Discontinued Medications Generic Name Dose Route Start Last Admin Trade Name Promise PRN Reason Stop Dose Admin Methylprednisolone Sodium Succinate 125 mg 01/26/22 19:04 01/26/22 19:10 Methylprednisolone Sod Succ 125mg Vial IM 01/26/22 19:05 125 mg ONCE ONE Administration Medical Decision Narrative: Patient still awaiting uric acid from lab contacted lab and advised 5-10 min Medication discussed with pharmacy [facility] [place] HPI - General Stated complaint: pOSSIBLE GOUT BOTH FEET Time Seen by Provider: 01/26/22 18:15 Mode of Arrival: Ambulatory Source of Information: Patient Limitations: No Limitations Description of Symptoms (Recalled from Triage Doc. by RN): PATIENT C/O POSSIBLE GOUT TO BILATERAL FEET HEENT Symptoms (Recalled from RN notes): No Resp Symptoms (Recalled from RN notes): No Skin Symptoms (Recalled from RN notes): No MS Symptoms (Recalled from RN notes): Yes Functional Status (Recalled from RN notes): WNL - History of Present Illness Provider Complaint: Patient states that he has history of gout States that he thinks he is having a gout attack in both feet states that he is having pain like he gets with gout in both great toes States that he wanted to come in and get treated before it got real bad States that he did fracture a bone in his left foot about a week ago but thinks the pain is more related to gout - Related Data Home Medications Medication Instructions Recorded Confirmed levothyroxine 50 mcg tablet 50 mcg PO DAILY 08/25/18 01/21/22 Aspirin [Aspirin 81mg EC Tab] 81 mg PO DAILY 09/30/18 01/21/22 mirabegron 50 mg tablet,extended 50 mg PO DAILY 30 Days #30 tab 03/13/19 01/21/22 release 24 hr atorvastatin 80 mg tablet 80 mg PO DAILY tab 09/11/19 01/21/22 losartan 25 mg tablet 25 mg PO DAILY tab 09/11/19 01/21/22 Cyanocobalamin/Folic Acid [Vitamin 1 each PO DAILY 11/16/19 01/21/22 H64-Dwlmj Acid Tablet] Ergocalciferol (Vitamin D2) 400 unit PO DAILY 11/16/19 01/21/22 [Vitamin D] Trazodone HCl 100 mg PO DAILY 11/16/19 01/21/22 cholecalciferol (vitamin D3) 125 5,000 unit PO DAILY tab 02/19/20 01/21/22 mcg (5,000 unit) tablet mirtazapine 15 mg tablet 15 mg PO DAILY tab 02/19/20 01/21/22 escitalopram oxalate 5 mg tablet 5 mg PO DAILY tab 03/19/20 01/21/22 glipizide 10 mg tablet 10 mg PO BID tab 12/09/20 01/21/22 dupilumab 300 mg/2 mL subcutaneous 300 mg SQ Q2W 06/16/21 01/21/22 pen injector Previous Rx's Medication Instructions Recorded melatonin 5 mg tablet 5 mg PO HS PRN 30 Days #30 tab 12/05/18 donepezil 5 mg tablet 5 mg PO HS #30 tab
[2022-01-26 18:58] LABS: Uric Acid 8.4 mg/dl (3.5-8.5)
[2022-01-26 19:11] VITALS: BP 106/78; PULSE 86; RESP 18; TEMP 36.6; O2SAT 97
== END 2022-01-26 19:14 | disposition home or self-care (01) ==
PROVIDERS: Emergency Provider Nurse Practitioner; PCP Nurse Practitioner
DX: M10.072 Idiopathic gout, left ankle and foot (principal); M10.071 Idiopathic gout, right ankle and foot
CPT/HCPCS: 84550; 96372; 99212; G0463

== ENCOUNTER 2022-05-01 19:26 | Emergency (ER) | payer MEDICARE, OTHER, SELFPAY ==
[2022-05-01 19:27] VITALS: BP 143/83; PULSE 76; RESP 18; TEMP 36.6; O2SAT 99; BMI 22.8
[2022-05-01 20:54] LABS: Basophils # 0.1 K/mm3 (0-0.2); Basophils % 0.5 % (0.1-2.0); Eosinophils # 1.2 K/mm3 (0.0-0.4); Eosinophils % 10.4 % (0.1-12.0); Hematocrit 46.9 % (42.0-52.0); Hemoglobin 14.9 g/dL (14.1-18.0); Lymphocytes # 1.9 K/mm3 (0.7-4.5); Lymphocytes % 16.2 % (10-50); Mean Corpuscular HGB Conc 31.7 g/dL (31.8-35.4); Mean Corpuscular Hemoglobin 29.5 pg (27.0-31.2); Mean Platelet Volume 9.1 fl (7.4-10.4); Monocytes # 0.9 K/mm3 (0.1-1.0); Monocytes % 7.5 % (1.7-9.3); Neutrophils # 7.8 K/mm3 (1.8-7.8); Neutrophils % 65.3 % (37.0-80.0); Platelet Count 223 K/mm3 (142-424); Red Blood Count 5.05 M/mm3 (4.60-6.20); White Blood Count 11.9 K/mm3 (4.8-10.8)
[2022-05-01 21:04] LABS: Alanine Aminotransferase 32 U/L (12-78); Albumin Level 3.9 g/dl (3.5-5.0); Albumin/Globulin Ratio 1.4 (1.1-1.8); Alkaline Phosphatase 103 U/L (38-126); Anion Gap 10.9 mEq/L (5-15); Aspartate Amino Transferase 31 U/L (17-59); Bilirubin,Total 0.4 mg/dl (0.2-1.3); Blood Urea Nitrogen 16 mg/dl (9-20); Calcium 9.2 mg/dl (8.4-10.2); Carbon Dioxide 30 mmol/L (22.0-30.0); Chloride 102 mmol/L (98-107); Creatinine Clearance Estimated 33 mL/min (50-200); Estimated Glomerular Filt Rate 33 ml/min (>60); GFR (African American) 40 ML/MIN (>60); Globulin 2.7 g/dL (1.3-3.2); Glucose 147 mg/dl (74-100); Potassium 3.9 mmoL/L (3.5-5.1); Sodium 139 mmol/L (136-145); Total Protein,Serum 6.6 g/dl (6.3-8.2)
[2022-05-01 21:10] LABS: C-Reactive Protein 5.5 mg/L (0-4)
[2022-05-01 21:17] LABS: Erythrocyte Sedimentation Rate 6 mm/hr (0-20)
[2022-05-01 21:23] LABS: Procalcitonin 0.137 ng/mL (0.0-2.0)
--- NOTE | 2022-05-01 21:57 | PC.NURSE ---
Rounded on pt. Pt voiced no needs or complaints at this time.
[2022-05-01 21:58] VITALS: BP 137/64; PULSE 40; O2SAT 98
--- NOTE | 2022-05-01 23:17 | HMH.EDEYEP ---
Discharge Plan Disposition Patient Disposition: Home, Self-Care Chief Complaint: Eye Problems Prescriptions Prescriptions: New cephalexin [cephalexin] 500 mg capsule 500 mg PO TID Qty: 30 0RF clindamycin HCl 300 mg capsule 300 mg PO Q8H Qty: 30 0RF No Action memantine 10 mg tablet 10 mg PO BID Qty: 180 3RF donepezil 5 mg tablet 5 mg PO HS Qty: 30 12RF Rx Instructions: Take one tablet daily. levothyroxine [Synthroid] 50 mcg tablet 50 mcg PO DAILY melatonin 5 mg tablet 5 mg PO HS PRN (Reason: sleep) 30 Days Qty: 30 7RF Rx Instructions: Take one tablet at bedtime. mirabegron 50 mg tablet extended release 24 hr 50 mg PO DAILY 30 Days Qty: 30 Label Comments: TAKE 1 TABLET BY MOUTH EVERY DAY atorvastatin 80 mg tablet 80 mg PO DAILY losartan 25 mg tablet 25 mg PO DAILY cholecalciferol (vitamin D3) 125 mcg (5,000 unit) tablet 5,000 unit PO DAILY Label Comments: TAKE ONE TABLET BY MOUTH EVERY DAY mirtazapine 15 mg tablet 15 mg PO DAILY Label Comments: TAKE ONE TABLET BY MOUTH EVERY DAY AT BEDTIME glipizide 10 mg tablet 10 mg PO BID Dupixent Pen 300 mg/2 mL pen injector 300 mg SQ Q2W escitalopram oxalate 10 mg tablet 10 mg PO DAILY clopidogrel 75 mg tablet See Rx Instructions .ROUTE .COMPLEX Qty: 90 3RF Dose Instruction: TAKE ONE TABLET BY MOUTH EVERY DAY Rx Instructions: TAKE ONE TABLET BY MOUTH EVERY DAY metoprolol succinate 25 mg tablet extended release 24 hr See Rx Instructions .ROUTE .COMPLEX Qty: 30 5RF Dose Instruction: TAKE ONE TABLET BY MOUTH EVERY DAY Rx Instructions: TAKE ONE TABLET BY MOUTH EVERY DAY aspirin 81 MG tablet,delayed release (DR/EC) 81 mg PO DAILY ergocalciferol (vitamin D2) 400 UNIT tablet 400 unit PO DAILY vitamin X07-[id number] acid 1 EACH tablet 1 each PO DAILY trazodone 100 MG tablet 100 mg PO DAILY Referrals Referrals: Delilah Cardoza APRN [Primary Care Provider] - Enter time for follow up Clinical Impressions Clinical Impression: Erysipelas Instructions Patient Instructions: Cellulitis Discharge ED Provider: Mook Millan Eye Problem HPI General Chief complaint: Eye Problems Stated complaint: eyes watery, swollen Time Seen by Provider: 08/26/22 23:17 Mode of Arrival: Ambulatory Source of Information: Patient, Relative and Medical Record Limitations: No Limitations Description of Symptoms (Recalled from ER Triage Doc. by RN): pt states was out cutting weeds and woke up with bilateral eyes swelling, drainage, and blurred vision. History of Present Illness HPI Narrative: over the last day has progressive reddness over the scalp and facial area with swelling to face - has hx of eczyema Onset (ago): day(s) Onset description: sudden Location: both eyes Eye Symptoms: other (periorbital swelling ) Place: home Severity: moderate Associated symptoms: other (skin infection ) Treatments Prior to Arrival: OTC eye drops Related Data Home Medications Medication Instructions Recorded Confirmed levothyroxine 50 mcg tablet 50 mcg PO DAILY thyroid 08/25/18 04/22/22 (Synthroid) aspirin 81 mg tablet,delayed 81 mg PO DAILY heart 09/30/18 04/22/22 release mirabegron 50 mg tablet,extended 50 mg PO DAILY alzheimer's 30 days 03/13/19 04/22/22 release 24 hr #30 tabs atorvastatin 80 mg tablet 80 mg PO DAILY Cholesterol 09/11/19 04/22/22 losartan 25 mg tablet 25 mg PO DAILY blood pressure 09/11/19 04/22/22 ergocalciferol (vitamin D2) 10 mcg 400 unit PO DAILY Supplement 11/16/19 04/22/22 (400 unit) tablet trazodone 100 mg tablet 100 mg PO DAILY Pain 11/16/19 04/22/22 vitamin B12 500 mcg-folic acid 400 1 each PO DAILY Supplement 11/16/19 04/22/22 mcg tablet cholecalciferol (vitamin D3) 125 5,000 unit PO DAILY Supplement 02/19/20 04/22/22 mcg (5,000 unit) tablet mirtazapine 15 mg tablet 15
[2022-05-02 00:11] VITALS: BP 122/78; PULSE 85; RESP 19; TEMP 36.7; O2SAT 99
== END 2022-05-02 00:23 | disposition home or self-care (01) ==
PROVIDERS: Emergency Medicine; Emergency Provider Emergency Medicine; PCP Nurse Practitioner
DX: A46 Erysipelas (principal); R94.31 Abnormal electrocardiogram [ECG] [EKG]; H05.223 Edema of bilateral orbit; H53.8 Other visual disturbances; R00.1 Bradycardia, unspecified; I45.2 Bifascicular block; I45.10 Unspecified right bundle-branch block; I42.9 Cardiomyopathy, unspecified; Z79.02 Long term (current) use of antithrombotics/antiplatelets; Z79.82 Long term (current) use of aspirin; Z79.899 Other long term (current) drug therapy; Z88.0 Allergy status to penicillin; Z88.8 Allergy status to other drugs, medicaments and biological substances; Z95.5 Presence of coronary angioplasty implant and graft
CPT/HCPCS: 80053; 84145; 85025; 85651; 86140; 96374; 99284; J0696

== ENCOUNTER → 2022-06-05 12:22 | Outpatient (CLI) | payer MEDICARE, OTHER, SELFPAY ==
--- NOTE | 2022-06-05 12:52 | CA_ITS ---
FINAL REPORT CLINICAL HISTORY: JOHAN FINDINGS: RIGHT CAROTID: CCA PSV --46 cm/sec ICA PSV -70 cm/sec ICA/CCA PSV ratio 1.5 - . Comments: Moderate plaque disease is noted. LEFTCAROTID: CCA PSV - 35. cm/sec ICA PSV - 143. cm/sec ICA/CCA PSV ratio 4.08 - . Comments: Moderate plaque disease is noted. Antegrade flow is seen within the vertebral arteries. IMPRESSION: Less than 50% stenosis on the right. 50-69% stenosis on the left. Moderate plaque. Recommend CTA or MRI for additional evaluation. Reviewed, Interpreted and Dictated by Coby Landers MD Transcribed by Naila Rivera Authenticated and [facility]
== END ==
PROVIDERS: PCP Nurse Practitioner; Visit Provider Nurse Practitioner Family
DX: F17.200 Nicotine dependence, unspecified, uncomplicated; G47.33 Obstructive sleep apnea (adult) (pediatric); I11.9 Hypertensive heart disease without heart failure; I25.10 Atherosclerotic heart disease of native coronary artery without angina pectoris; I65.23 Occlusion and stenosis of bilateral carotid arteries; R94.31 Abnormal electrocardiogram [ECG] [EKG]; Z95.5 Presence of coronary angioplasty implant and graft; E78.49 Other hyperlipidemia; N18.30 Chronic kidney disease, stage 3 unspecified
CPT/HCPCS: 93880

== ENCOUNTER 2022-10-14 10:29 | Emergency (ER) | payer MEDICARE, OTHER, SELFPAY ==
[2022-10-14 10:30] VITALS: BP 133/69; PULSE 70; RESP 16; TEMP 36.7; O2SAT 96; BMI 23.6
[2022-10-14 10:46] VITALS: BP 133/69; PULSE 70; RESP 18; TEMP 36.7; O2SAT 96
--- NOTE | 2022-10-14 10:46 | XR_ITS ---
FINAL REPORT CLINICAL HISTORY: ankle pain, NO INJURY COMPARISON: None FINDINGS: RIGHT ANKLE 3 views of the right ankle were obtained. There is no acute fracture or dislocation. The mortise is intact. Visualized joint spaces are normally aligned. There is a small plantar calcaneal spur. Soft tissues are unremarkable. IMPRESSION: No acute findings. Reviewed, Interpreted and Dictated by Noah Patel MD Transcribed by Selene Sharp Authenticated and [facility]
--- NOTE | 2022-10-14 10:55 | PC.NURSE ---
rad at BS
--- NOTE | 2022-10-14 11:13 | HMH.EDGENADL ---
Discharge Plan Disposition Patient Disposition: Home, Self-Care Prescriptions Prescriptions: New tramadol 50 mg tablet 50 mg PO BID PRN (Reason: pain) Qty: 14 0RF methylprednisolone [Medrol (Son)] 4 mg tablets,dose pack 4 mg PO DAILY Qty: 21 0RF No Action donepezil 5 mg tablet 5 mg PO HS Qty: 30 12RF Rx Instructions: Take one tablet daily. memantine 10 mg tablet 10 mg PO BID Qty: 180 3RF levothyroxine [Synthroid] 50 mcg tablet 50 mcg PO DAILY melatonin 5 mg tablet 5 mg PO HS PRN (Reason: sleep) 30 Days Qty: 30 7RF Rx Instructions: Take one tablet at bedtime. mirabegron 50 mg tablet extended release 24 hr 50 mg PO DAILY 30 Days Qty: 30 Label Comments: TAKE 1 TABLET BY MOUTH EVERY DAY atorvastatin 80 mg tablet 80 mg PO DAILY losartan 25 mg tablet 25 mg PO DAILY cholecalciferol (vitamin D3) 125 mcg (5,000 unit) tablet 5,000 unit PO DAILY Label Comments: TAKE ONE TABLET BY MOUTH EVERY DAY mirtazapine 15 mg tablet 15 mg PO DAILY Label Comments: TAKE ONE TABLET BY MOUTH EVERY DAY AT BEDTIME glipizide 10 mg tablet 10 mg PO BID Dupixent Pen 300 mg/2 mL pen injector 300 mg SQ Q2W escitalopram oxalate 10 mg tablet 10 mg PO DAILY clopidogrel 75 mg tablet See Rx Instructions .ROUTE .COMPLEX Qty: 90 3RF Dose Instruction: TAKE ONE TABLET BY MOUTH EVERY DAY Rx Instructions: TAKE ONE TABLET BY MOUTH EVERY DAY metoprolol succinate 25 mg tablet extended release 24 hr See Rx Instructions .ROUTE .COMPLEX Qty: 90 1RF Dose Instruction: TAKE ONE TABLET BY MOUTH EVERY DAY Rx Instructions: TAKE ONE TABLET BY MOUTH EVERY DAY aspirin 81 MG tablet,delayed release (DR/EC) 81 mg PO DAILY ergocalciferol (vitamin D2) 400 UNIT tablet 400 unit PO DAILY vitamin O04-wfroz acid 1 EACH tablet 1 each PO DAILY trazodone 100 MG tablet 100 mg PO DAILY Referrals Follow up/Referrals: Delilah Cardoza APRN [Primary Care Provider] - See instructions Clinical Impressions Clinical Impression: Gout Instructions Patient Instructions: DI for Gout Discharge ED Provider: Anmol Nelson General Adult HPI General Chief complaint: PAIN Stated complaint: RT foot redness w/inflammation Time Seen by Provider: 10/14/22 10:30 Mode of Arrival: Wheelchair Source of Information: Patient and Relative Limitations: No Limitations Description of Symptoms (Recalled from ER Triage Doc. by RN): pt comes in with possible gout flare up. located in right ankle and big toe. pt reports pain, swelling, redness. symptoms began yesterday. pt reports having similar symptoms to previous times. History of Present Illness HPI narrative: 77-year-old male with history of gout presents with right ankle pain. He says this feels like his previous gout episodes. He is also having pain in his big toe. He reports mild swelling and redness to the site. Symptoms began yesterday. No fever no chills. Related Data Home Medications Medication Instructions Recorded Confirmed levothyroxine 50 mcg tablet 50 mcg PO DAILY thyroid 08/25/18 06/03/22 (Synthroid) aspirin 81 mg tablet,delayed 81 mg PO DAILY heart 09/30/18 06/03/22 release mirabegron 50 mg tablet,extended 50 mg PO DAILY alzheimer's 30 days 03/13/19 06/03/22 release 24 hr #30 tabs atorvastatin 80 mg tablet 80 mg PO DAILY Cholesterol 09/11/19 06/03/22 losartan 25 mg tablet 25 mg PO DAILY blood pressure 09/11/19 06/03/22 ergocalciferol (vitamin D2) 10 mcg 400 unit PO DAILY Supplement 11/16/19 06/03/22 (400 unit) tablet trazodone 100 mg tablet 100 mg PO DAILY Pain 11/16/19 06/03/22 vitamin B12 500 mcg-folic acid 400 1 each PO DAILY Supplement 11/16/19 06/03/22 mcg tablet cholecalciferol (vitamin D3) 125 5,000 unit PO DAILY Supplement 02/19/20 06/03/22 mcg (5,000 unit) tablet mirtazapine 15 mg tablet 15 mg PO DAILY mood
[2022-10-14 11:30] VITALS: BP 125/86; PULSE 61; RESP 16; O2SAT 97
[2022-10-14 11:31] LABS: Basophils # 0.1 K/mm3 (0-0.2); Basophils % 0.9 % (0.1-2.0); Eosinophils # 0.6 K/mm3 (0.0-0.4); Eosinophils % 6.4 % (0.1-12.0); Hematocrit 46.3 % (42.0-52.0); Hemoglobin 15.4 g/dL (14.1-18.0); Lymphocytes # 1.8 K/mm3 (0.7-4.5); Lymphocytes % 19.6 % (10-50); Mean Corpuscular HGB Conc 33.2 g/dL (31.8-35.4); Mean Corpuscular Hemoglobin 29.8 pg (27.0-31.2); Mean Corpuscular Volume 89.8 fl (80-94); Mean Platelet Volume 8.7 fl (7.4-10.4); Monocytes # 0.7 K/mm3 (0.1-1.0); Monocytes % 7.4 % (1.7-9.3); Neutrophils # 5.9 K/mm3 (1.8-7.8); Neutrophils % 65.7 % (37.0-80.0); Platelet Count 236 K/mm3 (142-424); Red Blood Count 5.16 M/mm3 (4.60-6.20); Red Cell Distribution Width 13.2 % (11.5-17.5)
[2022-10-14 11:46] LABS: Alanine Aminotransferase 33 U/L (12-78); Albumin Level 4.1 g/dl (3.5-5.0); Albumin/Globulin Ratio 1.4 (1.1-1.8); Alkaline Phosphatase 123 U/L (38-126); Anion Gap 7.8 mEq/L (5-15); Aspartate Amino Transferase 32 U/L (17-59); Bilirubin,Total 0.8 mg/dl (0.2-1.3); Blood Urea Nitrogen 23 mg/dl (9-20); Calcium 9.3 mg/dl (8.4-10.2); Carbon Dioxide 33 mmol/L (22.0-30.0); Chloride 103 mmol/L (98-107); Creatinine Clearance Estimated 27 mL/min (50-200); Estimated Glomerular Filt Rate 25 ml/min (>60); GFR (African American) 31 ML/MIN (>60); Globulin 2.9 g/dL (1.3-3.2); Glucose 135 mg/dl (74-100); Potassium 4.8 mmoL/L (3.5-5.1); Sodium 139 mmol/L (136-145); Uric Acid 8.8 mg/dl (3.5-8.5)
[2022-10-14 12:00] VITALS: BP 129/66; PULSE 63; RESP 16; O2SAT 97
[2022-10-14 12:25] VITALS: BP 129/66; PULSE 63; RESP 16; TEMP 36.7; O2SAT 97
== END 2022-10-14 12:25 | disposition home or self-care (01) ==
PROVIDERS: Emergency Provider Emergency Medicine; PCP Nurse Practitioner
DX: M10.071 Idiopathic gout, right ankle and foot (principal); I45.10 Unspecified right bundle-branch block; I42.9 Cardiomyopathy, unspecified; F17.210 Nicotine dependence, cigarettes, uncomplicated; Z86.79 Personal history of other diseases of the circulatory system
CPT/HCPCS: 73610; 80053; 84550; 85025; 96374; 99285

== ENCOUNTER 2023-02-20 11:04 | Emergency (ER) | payer MEDICARE, OTHER, SELFPAY ==
[2023-02-20 11:05] VITALS: BP 104/64; PULSE 74; RESP 18; TEMP 36.6; O2SAT 98; BMI 23.6
--- NOTE | 2023-02-20 11:07 | EXP.UTC ---
Discharge Plan Disposition Patient Disposition: Home, Self-Care Condition: Good Prescriptions Prescriptions: New methylprednisolone 4 mg Tablets,Dose Pack 4 mg PO DIRECTED Qty: 21 0RF No Action donepezil 5 mg tablet 5 mg PO HS Qty: 30 12RF Rx Instructions: Take one tablet daily. memantine 10 mg tablet 10 mg PO BID Qty: 180 3RF levothyroxine [Synthroid] 50 mcg tablet 50 mcg PO DAILY melatonin 5 mg tablet 5 mg PO HS PRN (Reason: sleep) 30 Days Qty: 30 7RF Rx Instructions: Take one tablet at bedtime. mirabegron 50 mg tablet extended release 24 hr 50 mg PO DAILY 30 Days Qty: 30 Label Comments: TAKE 1 TABLET BY MOUTH EVERY DAY atorvastatin 80 mg tablet 80 mg PO DAILY losartan 25 mg tablet 25 mg PO DAILY cholecalciferol (vitamin D3) 125 mcg (5,000 unit) tablet 5,000 unit PO DAILY Label Comments: TAKE ONE TABLET BY MOUTH EVERY DAY mirtazapine 15 mg tablet 15 mg PO DAILY Label Comments: TAKE ONE TABLET BY MOUTH EVERY DAY AT BEDTIME glipizide 10 mg tablet 10 mg PO BID Dupixent Pen 300 mg/2 mL pen injector 300 mg SQ Q2W escitalopram oxalate 10 mg tablet 10 mg PO DAILY azelastine 137 mcg (0.1 %) aerosol,spray 1 spray intranasal BID clopidogrel 75 mg tablet See Rx Instructions .ROUTE .COMPLEX Qty: 90 3RF Dose Instruction: TAKE ONE TABLET BY MOUTH EVERY DAY Rx Instructions: TAKE ONE TABLET BY MOUTH EVERY DAY metoprolol succinate 25 mg tablet extended release 24 hr See Rx Instructions .ROUTE .COMPLEX Qty: 90 1RF Dose Instruction: TAKE ONE TABLET BY MOUTH EVERY DAY Rx Instructions: TAKE ONE TABLET BY MOUTH EVERY DAY aspirin 81 MG tablet,delayed release (DR/EC) 81 mg PO DAILY ergocalciferol (vitamin D2) 400 UNIT tablet 400 unit PO DAILY vitamin [id number]-[id number] acid 1 EACH tablet 1 each PO DAILY trazodone 100 MG tablet 100 mg PO DAILY tramadol 50 mg tablet 50 mg PO BID PRN (Reason: pain) Qty: 14 0RF Referrals Follow up/Referrals: Delilah Cardoza APRN [Primary Care Provider] - See instructions Activity Restrictions/Add. Instructions Additional Instructions/Restrictions: Rest the extremity, Elevate the extremity as tolerated while you are resting. Start the oral steroids tomorrow. Follow up with your regular doctor. GO TO THE ER FOR ANY WORSENING SYMPTOMS Clinical Impressions Clinical Impression: Pain in right wrist Instructions Patient Instructions: Gout, DI for Gout, Methylprednisolone Injection Discharge ED Provider: Abel Goodman [facility] General Stated complaint: right wrist pain, no accident Time Seen by Provider: 02/20/23 11:09 History of Present Illness Provider Complaint: He c/o right wrist pain for the past 5 days. He denies any injury. he has a history of gout. Related Data Home Medications Medication Instructions Recorded Confirmed levothyroxine 50 mcg tablet 50 mcg PO DAILY thyroid 08/25/18 02/10/23 (Synthroid) aspirin 81 mg tablet,delayed 81 mg PO DAILY heart 09/30/18 02/10/23 release mirabegron 50 mg tablet,extended 50 mg PO DAILY alzheimer's 30 days 03/13/19 02/10/23 release 24 hr #30 tabs atorvastatin 80 mg tablet 80 mg PO DAILY Cholesterol 09/11/19 02/10/23 losartan 25 mg tablet 25 mg PO DAILY blood pressure 09/11/19 02/10/23 ergocalciferol (vitamin D2) 10 mcg 400 unit PO DAILY Supplement 11/16/19 02/10/23 (400 unit) tablet trazodone 100 mg tablet 100 mg PO DAILY Pain 11/16/19 02/10/23 vitamin B12 500 mcg-folic acid 400 1 each PO DAILY Supplement 11/16/19 02/10/23 mcg tablet cholecalciferol (vitamin D3) 125 5,000 unit PO DAILY Supplement 02/19/20 02/10/23 mcg (5,000 unit) tablet mirtazapine 15 mg tablet 15 mg PO DAILY mood 02/19/20 02/10/23 glipizide 10 mg tablet 10 mg PO BID Diabetes 12/09/20 02/10/23 dupilumab 300 mg/2 mL subcutaneous 300 mg SQ Q2W 06/16/2102/10
--- NOTE | 2023-02-20 11:11 | XR_ITS ---
PROCEDURE INFORMATION: Exam: XR Right Wrist Exam date and time: 02/20/2023 11:27 AM Age: 77 years old Clinical indication: Pain; Wrist; Right; Additional info: Pain and swelling TECHNIQUE: Imaging protocol: Radiologic exam of the right wrist. Views: 3 or more views. COMPARISON: No relevant prior studies available. FINDINGS: Bones/joints: Well-defined osseous focus overlying dorsum of carpus. Chronic widening of scapholunate joint. Asymmetric degenerative changes of intercarpal and radiocarpal joints most pronounced in capital lunate and scapholunate joints. No acute cortical disruption. Mild osteopenia. Soft tissues: Normal. IMPRESSION: 1. No acute radiographic findings identified. 2. Possible chronic triquetral avulsion fracture. 3. Chronic widening of scapholunate joint. Can not exclude chronic, underlying ligamentous injury.
[2023-02-20 12:02] VITALS: BP 104/64; PULSE 74; RESP 18; TEMP 36.6; O2SAT 98
== END 2023-02-20 12:03 | disposition home or self-care (01) ==
PROVIDERS: Emergency Provider Nurse Practitioner Family; PCP Nurse Practitioner
DX: M25.531 Pain in right wrist (principal); F17.210 Nicotine dependence, cigarettes, uncomplicated; J44.9 Chronic obstructive pulmonary disease, unspecified; I25.10 Atherosclerotic heart disease of native coronary artery without angina pectoris; E78.5 Hyperlipidemia, unspecified; F03.90 Unspecified dementia, unspecified severity, without behavioral disturbance, psychotic disturbance, mood disturbance, and anxiety; Z95.810 Presence of automatic (implantable) cardiac defibrillator; I11.9 Hypertensive heart disease without heart failure
CPT/HCPCS: 73110; 96372; 99212; 99214; G0463

== ENCOUNTER → 2023-04-05 16:53 | Outpatient (CLI) | payer MEDICARE, OTHER, SELFPAY ==
[2023-04-05 16:26] LABS: Basophils % 0.4 % (0.1-2.0); Eosinophils # 0.4 K/mm3 (0.0-0.4); Eosinophils % 3.8 % (0.1-12.0); Hematocrit 45.9 % (42.0-52.0); Hemoglobin 14.7 g/dL (14.1-18.0); Lymphocytes # 1.9 K/mm3 (0.7-4.5); Lymphocytes % 20.1 % (10-50); Mean Corpuscular HGB Conc 31.9 g/dL (31.8-35.4); Mean Corpuscular Hemoglobin 30.5 pg (27.0-31.2); Mean Corpuscular Volume 95.3 fl (80-94); Mean Platelet Volume 9.9 fl (7.4-10.4); Monocytes # 0.7 K/mm3 (0.1-1.0); Monocytes % 7.4 % (1.7-9.3); Neutrophils # 6.4 K/mm3 (1.8-7.8); Neutrophils % 68.2 % (37.0-80.0); Platelet Count 177 K/mm3 (142-424); Red Blood Count 4.81 M/mm3 (4.60-6.20); Red Cell Distribution Width 13.9 % (11.5-17.5); White Blood Count 9.4 K/mm3 (4.8-10.8)
[2023-04-05 16:43] LABS: Alanine Aminotransferase 33 U/L (12-78); Albumin/Globulin Ratio 1.7 (1.1-1.8); Alkaline Phosphatase 107 U/L (38-126); Anion Gap 13.4 mEq/L (5-15); Aspartate Amino Transferase 31 U/L (17-59); Bilirubin,Total 0.9 mg/dl (0.2-1.3); Blood Urea Nitrogen 18 mg/dl (9-20); Calcium 9.7 mg/dl (8.4-10.2); Carbon Dioxide 29 mmol/L (22.0-30.0); Chloride 103 mmol/L (98-107); Estimated Glomerular Filt Rate 27 ml/min (>60); GFR (African American) 32 ML/MIN (>60); Globulin 2.4 g/dL (1.3-3.2); Glucose 111 mg/dl (74-100); Potassium 4.4 mmoL/L (3.5-5.1); Sodium 141 mmol/L (136-145); Total Protein,Serum 6.4 g/dl (6.3-8.2)
[2023-04-05 17:15] LABS: Thyroid Stimulating Hormone 1.56 uIU/mL (0.465-4.68)
[2023-04-06 12:44] LABS: Hemoglobin A1C 9.4 % (4.0-6.0)
== END ==
PROVIDERS: PCP Family Medicine; Visit Provider Family Medicine
DX: I10 Essential (primary) hypertension (principal); E03.9 Hypothyroidism, unspecified; E11.9 Type 2 diabetes mellitus without complications; Z79.84 Long term (current) use of oral hypoglycemic drugs
CPT/HCPCS: 80053; 83036; 84443; 85025

== ENCOUNTER → 2023-04-26 10:57 | Outpatient (CLI) | payer MEDICARE, OTHER, SELFPAY ==
--- NOTE | 2023-04-26 11:03 | CA_ITS ---
FINAL REPORT TECHNIQUE: Color Doppler, duplex Doppler and mckee scale sonography of the bilateral neck arterial vasculature was performed. Velocities were measured in the carotid arteries. Stenosis evaluation based on the validated velocity criteria. CLINICAL HISTORY: JOHAN COMPARISON: 06/05/2022 FINDINGS: The peak systolic velocity of the right common carotid artery is 57 cm/s. The peak systolic velocity of the right internal carotid artery is 66 cm/s and end diastolic velocity 23 cm/s. A small amount of plaque is present. The right external carotid artery is patent. The right vertebral artery is patent with antegrade flow. The peak systolic velocity of the left common carotid artery is 70 cm/s. The peak systolic velocity of the left internal carotid artery is 102 cm/s and end diastolic velocity 31 cm/s. A mild to moderate amount of plaque is present. The left external carotid artery is patent.The left vertebral artery is patent with antegrade flow. IMPRESSION: 50-69% stenosis on the left with mild to moderate plaque, unchanged from prior exam. Bilateral patent vertebral arteries with antegrade flow. If indicated, CTA or MRA could further evaluate. Reviewed, Interpreted and Dictated by Noah Patel MD Transcribed by Janelle Zavala Authenticated and . [facility]
== END ==
PROVIDERS: PCP Family Medicine; Visit Provider Nurse Practitioner Family
DX: I65.23 Occlusion and stenosis of bilateral carotid arteries (principal)
CPT/HCPCS: 93880

== ENCOUNTER → 2023-07-08 16:39 | Outpatient (CLI) | payer MEDICARE, OTHER, SELFPAY ==
[2023-07-09 10:57] LABS: Free T4 (Free Thyroxine) 2.34 ng/dl (0.78-2.19)
[2023-07-09 10:58] LABS: T4 (Thyroxine) 10.2 ug/dl (5.53-11.0); Triiodothryronine (T3) Uptake 38 % (23.5-40.5)
== END ==
PROVIDERS: PCP Nurse Practitioner Family; Visit Provider Nurse Practitioner Family
DX: F41.9 Anxiety disorder, unspecified (principal); G47.00 Insomnia, unspecified; E11.9 Type 2 diabetes mellitus without complications; M10.9 Gout, unspecified; Z79.899 Other long term (current) drug therapy; Z79.4 Long term (current) use of insulin
CPT/HCPCS: 84436; 84439; 84479

== ENCOUNTER → 2023-07-08 23:43 | Outpatient (CLI) | payer MEDICARE, OTHER, SELFPAY ==
[2023-07-08 16:30] LABS: Basophils % 0.3 % (0.1-2.0); Eosinophils # 0.1 K/mm3 (0.0-0.4); Eosinophils % 0.5 % (0.1-12.0); Hematocrit 45.3 % (42.0-52.0); Hemoglobin 15.4 g/dL (14.1-18.0); Lymphocytes # 2.4 K/mm3 (0.7-4.5); Lymphocytes % 20.9 % (10-50); Mean Corpuscular Hemoglobin 31.8 pg (27.0-31.2); Mean Corpuscular Volume 93.7 fl (80-94); Mean Platelet Volume 10.8 fl (7.4-10.4); Monocytes # 0.6 K/mm3 (0.1-1.0); Monocytes % 5.7 % (1.7-9.3); Neutrophils # 8.2 K/mm3 (1.8-7.8); Neutrophils % 72.6 % (37.0-80.0); Platelet Count 184 K/mm3 (142-424); Red Blood Count 4.84 M/mm3 (4.60-6.20); Red Cell Distribution Width 12.8 % (11.5-17.5); White Blood Count 11.3 K/mm3 (4.8-10.8)
[2023-07-08 17:04] LABS: Alanine Aminotransferase 24 U/L (12-78); Albumin Level 3.9 g/dl (3.5-5.0); Albumin/Globulin Ratio 1.6 (1.1-1.8); Alkaline Phosphatase 110 U/L (38-126); Anion Gap 14.5 mEq/L (5-15); Aspartate Amino Transferase 26 U/L (17-59); Bilirubin,Total 0.3 mg/dl (0.2-1.3); Blood Urea Nitrogen 21 mg/dl (9-20); Calcium 8.9 mg/dl (8.4-10.2); Carbon Dioxide 28 mmol/L (22.0-30.0); Chloride 102 mmol/L (98-107); Chol/HDL Ratio 3.2 (1-3.5); Cholesterol 119 mg/dl (140-200); Estimated Glomerular Filt Rate 31 ml/min (>60); GFR (African American) 37 ML/MIN (>60); Globulin 2.4 g/dL (1.3-3.2); Glucose 126 mg/dl (74-100); HDL Cholesterol 37 mg/dl (40-60); Potassium 4.5 mmoL/L (3.5-5.1); Sodium 140 mmol/L (136-145); Total Protein,Serum 6.3 g/dl (6.3-8.2); Triglycerides 85 mg/dl (30-150); Uric Acid 7.5 mg/dl (3.5-8.5); VLDL Cholesterol 17 mg/dL (0-40)
[2023-07-08 17:15] LABS: Direct LDL Cholesterol 73.72 mg/dL (100-129)
[2023-07-08 17:16] LABS: Hemoglobin A1C 6.2 % (4.0-6.0)
[2023-07-08 17:33] LABS: Thyroid Stimulating Hormone 0.41 uIU/mL (0.465-4.68)
== END ==
PROVIDERS: PCP Family Medicine; Visit Provider Nurse Practitioner Family
DX: E11.9 Type 2 diabetes mellitus without complications (principal); M10.9 Gout, unspecified; Z79.4 Long term (current) use of insulin; Z79.899 Other long term (current) drug therapy
CPT/HCPCS: 80053; 80061; 83036; 84443; 84550; 85025

== ENCOUNTER 2023-09-30 20:43 | Outpatient (CLI) | payer MEDICARE, OTHER, SELFPAY ==
[2023-09-30 19:13] LABS: Basophils # 0.1 K/mm3 (0-0.2); Basophils % 0.5 % (0.1-2.0); Eosinophils # 0.3 K/mm3 (0.0-0.4); Eosinophils % 2.5 % (0.1-12.0); Hematocrit 45.2 % (42.0-52.0); Hemoglobin 16.7 g/dL (14.1-18.0); Lymphocytes # 1.6 K/mm3 (0.7-4.5); Lymphocytes % 13.7 % (10-50); Mean Corpuscular Hemoglobin 34.1 pg (27.0-31.2); Mean Corpuscular Volume 92.1 fl (80-94); Mean Platelet Volume 10.1 fl (7.4-10.4); Monocytes # 0.7 K/mm3 (0.1-1.0); Monocytes % 5.8 % (1.7-9.3); Neutrophils # 8.9 K/mm3 (1.8-7.8); Neutrophils % 77.5 % (37.0-80.0); Platelet Count 159 K/mm3 (142-424); Red Blood Count 4.91 M/mm3 (4.60-6.20); Red Cell Distribution Width 14.2 % (11.5-17.5); White Blood Count 11.5 K/mm3 (4.8-10.8)
[2023-09-30 19:24] LABS: Chloride 101 mmol/L (98-107); Potassium 3.4 mmoL/L (3.5-5.1); Sodium 139 mmol/L (136-145)
[2023-09-30 19:26] LABS: Blood Urea Nitrogen 15 mg/dl (9-20); Estimated Glomerular Filt Rate 31 ml/min (>60); GFR (African American) 37 ML/MIN (>60)
[2023-09-30 19:27] LABS: Alanine Aminotransferase 21 U/L (12-78); Albumin Level 3.6 g/dl (3.5-5.0); Albumin/Globulin Ratio 1.4 (1.1-1.8); Alkaline Phosphatase 133 U/L (38-126); Anion Gap 12.4 mEq/L (5-15); Aspartate Amino Transferase 28 U/L (17-59); Bilirubin,Total 0.9 mg/dl (0.2-1.3); Carbon Dioxide 29 mmol/L (22.0-30.0); Chol/HDL Ratio 4.7 (1-3.5); Cholesterol 132 mg/dl (140-200); Globulin 2.5 g/dL (1.3-3.2); Glucose 210 mg/dl (74-100); HDL Cholesterol 28 mg/dl (40-60); Total Protein,Serum 6.1 g/dl (6.3-8.2); Triglycerides 97 mg/dl (30-150); VLDL Cholesterol 19 mg/dL (0-40)
[2023-09-30 19:50] LABS: Direct LDL Cholesterol 91.89 mg/dL (100-129)
[2023-09-30 20:24] LABS: Thyroid Stimulating Hormone 0.67 uIU/mL (0.465-4.68)
[2023-09-30 21:36] LABS: Uric Acid 8.6 mg/dl (3.5-8.5)
[2023-10-01 00:36] LABS: Hemoglobin A1C 6.6 % (4.0-6.0)
== END 2023-09-30 23:59 ==
LOC: LAB.DROPOF 20:44
PROVIDERS: PCP Family Medicine; Visit Provider Family Medicine
DX: E11.9 Type 2 diabetes mellitus without complications (principal); R41.3 Other amnesia; M10.9 Gout, unspecified; Z79.4 Long term (current) use of insulin
CPT/HCPCS: 80053; 80061; 83036; 84443; 84550; 85025

== ENCOUNTER 2023-11-17 15:57 | Emergency (ER) | payer MEDICARE, OTHER, SELFPAY ==
[2023-11-17 16:00] VITALS: BP 105/75; PULSE 62; RESP 18; TEMP 36.9; O2SAT 97; BMI 25.0
--- NOTE | 2023-11-17 16:27 | XR_ITS ---
PROCEDURE INFORMATION: Exam: XR Chest Exam date and time: 11/17/2023 4:53 PM Age: 78 years old Clinical indication: Cough TECHNIQUE: Imaging protocol: Radiologic exam of the chest. Views: 2 views. COMPARISON: LUNGSCREEN CT lung screening 01/09/2019 3:16 PM FINDINGS: Lungs: Normal. Pleural spaces: Normal. No pleural effusion. No pneumothorax. Heart/Mediastinum: Normal. No cardiomegaly. Vasculature: Mild atherosclerotic plaque in the thoracic aorta. Bones/joints: Unremarkable. IMPRESSION: No acute findings.
[2023-11-17 17:01] LABS: Basophils # 0.2 K/mm3 (0-0.2); Basophils % 2.4 % (0.1-2.0); Eosinophils # 0.2 K/mm3 (0.0-0.4); Eosinophils % 2.5 % (0.1-12.0); Hematocrit 53.1 % (42.0-52.0); Hemoglobin 17.1 g/dL (14.1-18.0); Lymphocytes % 12.1 % (10-50); Mean Corpuscular HGB Conc 32.1 g/dL (31.8-35.4); Mean Corpuscular Hemoglobin 30.2 pg (27.0-31.2); Mean Corpuscular Volume 94.1 fl (80-94); Mean Platelet Volume 9.5 fl (7.4-10.4); Monocytes # 0.8 K/mm3 (0.1-1.0); Monocytes % 9.1 % (1.7-9.3); Neutrophils # 6.3 K/mm3 (1.8-7.8); Neutrophils % 73.9 % (37.0-80.0); Platelet Count 141 K/mm3 (142-424); Red Blood Count 5.64 M/mm3 (4.60-6.20); Red Cell Distribution Width 14.1 % (11.5-17.5); White Blood Count 8.6 K/mm3 (4.8-10.8)
--- NOTE | 2023-11-17 17:02 | CT_ITS ---
PROCEDURE INFORMATION: Exam: CT Head Without Contrast Exam date and time: 11/17/2023 6:04 PM Age: 78 years old Clinical indication: Altered mental status/memory loss; Additional info: Acute confusion TECHNIQUE: Imaging protocol: Computed tomography of the head without contrast. Radiation optimization: All CT scans at this facility use at least one of these dose optimization techniques: automated exposure control; mA and/or kV adjustment per patient size (includes targeted exams where dose is matched to clinical indication); or iterative reconstruction. COMPARISON: HEADWO CT head/brain wo con 06/22/2018 8:38 PM FINDINGS: Brain: Mild supratentorial white matter hypodensities are likely the sequela of chronic small vessel ischemic disease. Mild atrophy. No hemorrhage, edema, or mass effect. Cerebral ventricles: No ventriculomegaly. Paranasal sinuses: Mild right maxillary and bilateral ethmoid sinus mucosal thickening. Mastoid air cells: Visualized mastoid air cells are well aerated. Bones/joints: Unremarkable. No acute fracture. Soft tissues: Unremarkable. IMPRESSION: No acute intracranial findings.
[2023-11-17 17:07] LABS: Chloride 101 mmol/L (98-107); Sodium 137 mmol/L (136-145)
[2023-11-17 17:08] LABS: Potassium 4.1 mmoL/L (3.5-5.1)
[2023-11-17 17:10] LABS: Alanine Aminotransferase 39 U/L (12-78); Albumin/Globulin Ratio 1.5 (1.1-1.8); Alkaline Phosphatase 113 U/L (38-126); Anion Gap 9.1 mEq/L (5-15); Aspartate Amino Transferase 51 U/L (17-59); Bilirubin,Total 0.8 mg/dl (0.2-1.3); Blood Urea Nitrogen 17 mg/dl (9-20); Carbon Dioxide 31 mmol/L (22.0-30.0); Creatinine Clearance Estimated 27 mL/min (50-200); Estimated Glomerular Filt Rate 26 ml/min (>60); GFR (African American) 32 ML/MIN (>60); Globulin 2.6 g/dL (1.3-3.2); Total Protein,Serum 6.6 g/dl (6.3-8.2)
[2023-11-17 17:11] LABS: Glucose 138 mg/dl (74-100)
[2023-11-17 17:23] LABS: INR 1.05 (0.9-1.1); Prothrombin Time 11.3 seconds (10.1-12.5)
--- NOTE | 2023-11-17 17:27 | ED_ITS ---
<Statement entered by Kathy Loving MD - 11/17/23 21:05> I was consulted by the NEREYDA, and we discussed the complexity of the problems being addressed. I approved the treatment and management plan for this patient's care in the emergency department, thus performing a substantive portion of the medical decision making. Kathy Loving MD, CHANI, FACEP Discharge Plan Disposition Patient Disposition: Home, Self-Care Condition: Good Prescriptions Prescriptions: No Action Dupixent Syringe 300 mg/2 mL syringe 300 mg SQ WEEKLY Patient Comments: INJECT THE contents of 1 syringe (300 MG) SUBCUTANEOUSLY every other WEEK cetirizine [All Day Allergy (cetirizine)] 10 mg tablet 10 mg PO DAILY PRN aspirin 81 mg tablet,delayed release (DR/EC) 81 mg PO DAILY 90 Days Qty: 90 0RF escitalopram oxalate 10 mg tablet 10 mg PO DAILY 90 Days Qty: 90 0RF clopidogrel 75 mg tablet 75 mg PO DAILY 90 Days Qty: 90 0RF albuterol sulfate 90 mcg/actuation HFA aerosol inhaler 2 puff inhalation Q4-6H PRN (Reason: shortness of breath or wheezing) 30 Days Qty: 8.5 3RF Trelegy Ellipta 200-62.5-25 mcg blister with device 2 inh inhalation DAILY 30 Days Qty: 60 2RF melatonin 5 mg tablet 5 mg PO HS PRN (Reason: sleep) 30 Days Qty: 30 7RF Rx Instructions: Take one tablet at bedtime. azelastine 137 mcg (0.1 %) aerosol,spray 1 spray intranasal BID albuterol sulfate 2.5 mg /3 mL (0.083 %) solution for nebulization 2.5 mg continuous nebulization Q4-6H PRN (Reason: shortness of breath or wheezing) Patient Comments: Inhale 3 mL 4 times a day by nebulization route as needed. (DME) Dexcom G7 Income Tax Administrator Misc See Rx Instructions .Route Qty: 1 0RF Rx Instructions: As directed (DME) Dexcom G7 Sensor Device See Rx Instructions .Route Qty: 1 0RF Rx Instructions: As directed metoprolol succinate 25 mg tablet extended release 24 hr 25 mg PO DAILY colchicine 0.6 mg capsule 1.2 mg PO BID Qty: 7 2RF Rx Instructions: Take 2 capsules initially; may take 1 capsule 1-2 hours after as needed (DME) pen needle, diabetic [Comfort EZ Pen [place]] 32 gauge x 1/4 needle See Rx Instructions .Route Qty: 100 2RF Rx Instructions: As directed donepezil 5 mg tablet 5 mg PO HS 90 Days Qty: 90 0RF Rx Instructions: Take one tablet daily. memantine 10 mg tablet 10 mg PO BID 90 Days Qty: 180 0RF levothyroxine [Synthroid] 50 mcg tablet 50 mcg PO DAILY 90 Days Qty: 90 1RF atorvastatin 80 mg tablet 80 mg PO DAILY 90 Days Qty: 90 1RF cyanocobalamin (vitamin B-12) 1,000 mcg tablet See Rx Instructions .ROUTE .COMPLEX Qty: 90 0RF Dose Instruction: TAKE ONE TABLET BY MOUTH EVERY DAY Rx Instructions: TAKE ONE TABLET BY MOUTH EVERY DAY Januvia 50 mg tablet 50 mg PO DAILY Qty: 30 3RF cholecalciferol (vitamin D3) 125 mcg (5,000 unit) tablet 5,000 unit PO DAILY 90 Days Qty: 90 3RF insulin glargine [Lantus Solostar U-100 Insulin] 100 unit/mL (3 mL) insulin pen 16 unit SQ HS Qty: 15 2RF (DME) pen needle, diabetic [BD Ultra-Fine Mini Pen Needle] 31 gauge x 3/16 needle See Rx Instructions .ROUTE .MEDSUPPLY Qty: 1200 0RF Rx Instructions: As directed mirtazapine 15 mg tablet 15 mg PO DAILY 90 Days Qty: 90 0RF Patient Comments: TAKE ONE TABLET BY MOUTH EVERY DAY AT BEDTIME Jardiance 10 mg tablet 10 mg PO DAILY 90 Days Qty: 90 0RF Referrals Follow up/Referrals: Harry Pressley MD [Primary Care Provider] - See instructions Activity Restrictions/Add. Instructions Additional Instructions/Restrictions: Follow-up with PCP or return to ED for any worsening signs or symptoms or change in condition. Clinical Impressions Clinical Impression: Acute confusion Discharge ED Provider: Kathy Loving General Adult HPI General Chief complaint: Urogenital-Male Stated complaint: weakness ,SOA Time Seen by Provider: 11/17/23 17:00 Mode of Arrival: Wheelchair Source of Information: Relative Limitations: No Limitations Description of Symptoms (Recalled from ER Triage Doc. by RN): daughter states pt has felt weak today. per report pt has an incontinent episode. pt has a cough that daughter states is chronic. daughter states pt reports feeling disoriented. History of Present Illness HPI narrative: Patient presents for evaluation for acute confusion. Patient reports that he was confused upon waking up and was unable to get up for some time. He is unsure how long this episode lasted however he is currently back to baseline at the time of my exam at the bedside. Patient reports no chest pain shortness of breath fever chills hemoptysis hematochezia melena nausea vomiting diarrhea dysuria diaphoresis. Related Data Home Medications Medication Instructions Recorded Confirmed azelastine 137 mcg (0.1 %) nasal 1 spray intranasal BID 12/03/22 09/30/23 spray aerosol cetirizine 10 mg tablet (All Day 10 mg PO DAILY PRN 04/05/23 09/30/23 Allergy (cetirizine)) dupilumab 300 mg/2 mL subcutaneous 300 mg SQ WEEKLY 04/05/23 09/30/23 syringe ([place]) albuterol sulfate 2.5 mg/3 mL 2.5 mg continuous nebulization 04/12/23 09/30/23 (0.083 %) solution for nebulization Q4-6H PRN shortness of breath or wheezing metoprolol succinate 25 mg 25 mg PO DAILY 09/30/23 09/30/23 tablet,extended release 24 hr Previous Rx's Medication Instructions Recorded melatonin 5 mg tablet 5 mg PO HS PRN sleep 30 days #30 12/05/18 tabs pen needle, diabetic 32 gauge x #100 ea 04/13/23 1/4 (Comfort EZ Pen [place]) atorvastatin 80 mg tablet 80 mg PO DAILY Cholesterol 90 days 05/21/23 #90 tabs cyanocobalamin (vitamin B-12) See Rx Instructions .Route 05/21/23 1,000 mcg tablet .COMPLEX #90 tabs donepezil 5 mg tablet 5 mg PO HS memory 90 days #90 tabs 05/21/23 levothyroxine 50 mcg tablet 50 mcg PO DAILY thyroid 90 days 05/21/23 (Synthroid) #90 tabs memantine 10 mg tablet 10 mg PO BID 90 days #180 tabs 05/21/23 aspirin 81 mg tablet,delayed 81 mg PO DAILY heart 90 days #90 07/08/23 release tabs clopidogrel 75 mg tablet 75 mg PO DAILY 90 days #90 tabs 07/08/23 escitalopram oxalate 10 mg tablet 10 mg PO DAILY 90 days #90 tabs 07/08/23 albuterol sulfate 90 mcg/actuation 2 puff inhalation Q4-6H PRN 08/05/23 aerosol inhaler shortness of breath or wheezing 30 days #8.5 grams fluticasone fur. 200 mcg-umeclid 2 inh inhalation DAILY 30 days #60 08/05/23 62.5 mcg-vilant 25 mcg ea inhalat.powder (Trelegy Ellipta) blood-glucose meter,continuous #1 ea 09/30/23 (Dexcom G7 Income Tax Administrator) blood-glucose sensor (Dexcom G7 #1 ea 09/30/23 Sensor device) colchicine 0.6 mg capsule 1.2 mg (2 x 0.6 mg) PO BID #7 caps 10/01/23 sitagliptin phosphate 50 mg tablet 50 mg PO DAILY #30 tabs 10/01/23 (Januvia) cholecalciferol (vitamin D3) 125 5,000 unit PO DAILY Supplement 90 10/21/23 mcg (5,000 unit) tablet days #90 tabs insulin glargine 100 unit/mL (3 16 unit (0.16 mL) SQ HS #15 mL 10/26/23 mL) subcutaneous pen (Lantus Solostar U-100 Insulin) pen needle, diabetic 31 gauge x #1,200 ea 10/26/23 3/16 (BD Ultra-Fine Mini Pen Needle) empagliflozin 10 mg tablet 10 mg PO DAILY 90 days #90 tabs 10/28/23 (Jardiance) mirtazapine 15 mg tablet 15 mg PO DAILY mood 90 days #90 10/28/23 tabs Allergies Allergy/AdvReac Type Severity Reaction Status Date / Time Penicillins [PENICILLINS] Allergy Severe S-SWELLS-OR Verified 09/30/23 10:54 AL/THROAT azathioprine [From IMURAN] Allergy Unknown SKIN Verified 09/30/23 10:54 BLISTERS PFSH [facility] Disclaimer: The information contained in this section may have been updated after the patient was seen, as this information can be updated by other users. Medical History Abnormal ECG Bifascicular bundle branch block Bradycardia CAD (coronary artery disease) Cardiomyopathy Chronic obstructive lung disease On O2 as needed during daytime only. Dementia Stable on donezepil, memantine. Denies any significant side effects. Frequent urination HTN (hypertension), benign Hyperlipidemia Kidney disorder Lung disease Myocardial infarction Presence of combination internal cardiac defibrillator (ICD) and pacemaker Right bundle branch block Surgical History History of appendectomy Hx of colonoscopy Family History Other Coronary artery disease Heart attack Social History Smoking Status: Current every day smoker tobacco type: cigarettes packs per day: 1 second hand exposure: Yes alcohol intake: never counseling provided: none substance use type: denies use current occupational status: other Travel in the last 8 weeks: None household members: family housing: house current occupational exposures/hazards: No caffeine: Yes ROS Obtained: Yes Systems reviewed as appropriate & no additional complaints except as documented Physical Exam General General appearance: alert and in no apparent distress Head Head exam: atraumatic and normal inspection Eye Eye exam: Present normal appearance, PERRL and EOMI ENT ENT exam: Present normal exam, normal oropharynx, mucous membranes moist and other (Patient has severe presbycusis) Neck Neck exam: Present normal inspection, full ROM and trachea midline; Absent lymphadenopathy Chest Chest inspection: Present normal inspection and symmetric chest wall rise Respiratory Respiratory exam: Present normal lung sounds bilaterally; Absent respiratory distress, wheezes or accessory muscle use Cardiovascular Cardiovascular exam: Present regular rate, normal rhythm, normal heart sounds, +S1 and +S2 Abdominal Exam Abdominal exam: Present soft and normal bowel sounds; Absent tenderness, guarding or rebound Extremities Exam Extremities exam: Present normal inspection and full ROM Back Exam Back exam: Present normal inspection; Absent full ROM Neurological Exam Neurological exam: Present alert, oriented X3 and CN II-XII intact Psychiatric Psychiatric exam: Present normal affect and normal mood Skin Skin exam: Present warm, dry and normal color Medical Decision Making Medical Records Medical records reviewed: Yes I reviewed the patient's medical records. Wong Inquiry Pt receiving controlled substance: No Vital Signs: 11/17/23 16:00 11/17/23 18:16 Temperature 98.4 F 98.4 F Temperature Source Oral Pulse Rate 65 Pulse Rate [Right Radial] 62 Respiratory Rate 18 16 Blood Pressure 124/73 Blood Pressure [Right Arm] 105/75 L Blood Pressure Mean [Right Arm] 85 Blood Pressure Source [Right Arm] Automatic Cuff Blood Pressure Position [Right Arm] Sitting 02 Sat by Pulse Oximetry 97 Oxygen Delivery Method Room Air Room Air Lab Data Lab results reviewed: Yes I reviewed the patient's lab results. Lab Results 11/17/23 16:45: PT 11.3, INR 1.05, D-Dimer 0.72 H, Troponin I < 0.01 11/17/23 16:48: WBC 8.6, RBC 5.64, Hgb 17.1, Hct 53.1 H, MCV 94.1 H, MCH 30.2, MCHC 32.1, RDW 14.1, Plt Count 141 L, MPV 9.5, Neut % (Auto) 73.9, Lymph % (Auto) 12.1, Gosper % (Auto) 9.1, Eos % (Auto) 2.5, Baso % (Auto) 2.4 H, Neut # (Auto) 6.3, Lymph # (Auto) 1.0, [place] # (Auto) 0.8, Eos # (Auto) 0.2, Baso # (Auto) 0.2, Sodium 137, Potassium 4.1, Chloride 101, Carbon Dioxide 31 H, Anion Gap 9.1, BUN 17, Creatinine 2.40 H, Estimated Creat Clear 27, Estimated GFR 26 L , Est GFR ( Amer) 32 L, Glucose 138 H, Calcium 9.0, Total Bilirubin 0.8, AST 51, ALT 39, Alkaline Phosphatase 113, Total Protein 6.6, Albumin 4.0, Globulin 2.6, Albumin/Globulin Ratio 1.5 11/17/23 17:07: Urine Color Yellow, Urine Appearance Clear, Urine pH 6.5, Ur Specific Central 1.025, Urine Protein Negative, Urine Glucose (UA) 3+, Urine Ketones Negative, Urine Blood Negative, Urine Nitrate Negative, Urine Bilirubin Negative, Urine Urobilinogen 0.2, Ur Leukocyte Esterase Negative, Urine RBC None, Urine WBC None, Ur Squamous Epith Cells Occasional, Urine Bacteria None 11/17/23 16:48 11/17/23 16:48 Orders (Tests/Meds): ORDERS Category Date Time Status CT head/brain wo con Stat Cat Scan 11/17/23 17:02 Taken Chest XR 2 view (NOT portable) [XR chest 2V] Stat Exams 11/17/23 16:27 Completed Complete Blood Count Auto Diff Stat Lab 11/17/23 16:48 Completed Comprehensive Metabolic Panel Stat Lab 11/17/23 16:48 Completed D-Dimer Stat Lab 11/17/23 16:45 Completed INR [Prothrombin Time INR] Stat Lab 11/17/23 16:45 Completed Rapid PCR Covid and Flu A/B Stat Lab 11/17/23 17:07 Received Trop I [Troponin I] Stat Lab 11/17/23 16:45 Completed Troponin I Q3H Lab 11/17/23 20:15 Ordered Troponin I Q3H Lab 11/17/23 23:15 Ordered Urinalysis and Microscopic Stat Lab 11/17/23 17:07 Completed Medical Decision Narrative: In summary patient is a 78-year-old male who presents to the emergency department for evaluation of acute confusion. Patient is hemodynamically stable and afebrile on evaluation. Physical exam is only remarkable for severe presbycusis the remainder of his exam is nonfocal with a GCS of 15 and no focal neurologic deficits.. Differential diagnosis includes encephalopathy TIA stroke seizures etc. Initial workup will be conducted with hematologic labs urinalysis twelve-lead EKG CT scan of the brain without contrast.. Initial workup reviewed by me shows a D-dimer of 0.72, creatinine of 2.40 which is close to his baseline, GFR of 26 which again is slightly lower than his normally low baseline, undetectable troponin and a bland urinalysis. CT scan of the head without contrast via my informal interpretation shows no acute processes however radiologist read pending.. Upon repeat evaluation has had no change in his mental status throughout the course of his stay and remains with a GCS of 15. Given this patient is appropriate for discharge with close follow-up with his PCP for reevaluation further investigation as needed or return to ER for any change or worsening in his condition. Patient verbalized understanding and agreement. Critical Care Critical Care Time Critical Care Time: No
[2023-11-17 17:32] LABS: D-Dimer 0.72 ug/mL (0.0-0.5)
[2023-11-17 17:35] LABS: Influenza A, PCR Not Detected (NotDetected); Influenza B, PCR Not Detected (NotDetected); Microscopic, Urine URINE MICROSCOPIC (MICROSCOPIC)
[2023-11-17 17:38] LABS: Troponin I < 0.01 ng/ml (0.00-0.034)
[2023-11-17 17:50] LABS: Appearance,Urine CLEAR (Clear); Bilirubin,Urine Negative (Negative); Blood, Urine Negative (Negative); Color,Urine YELLOW (Yellow); Glucose,Urine (UA) 3+ (Negative); Ketones,Urine Negative (Negative); Leukocyte Esterase,Urine Negative (Negative); Nitrate,Urine Negative (Negative); PH,Urine 6.5 (5.0-8.5); Protein,Urine Negative (Negative); Specific Gravity, Urine 1.025 (1.005-1.030); Urobilinogen,Urine 0.2 EU/dl (0.2)
[2023-11-17 17:52] LABS: Squamous Epithelial Cell,Urine Occasional #/hpf (0-5)
[2023-11-17 18:16] VITALS: BP 124/73; PULSE 65; RESP 16; TEMP 36.9; O2SAT 97
[2023-11-17 18:27] LABS: Coronavirus 19, PCR Detected (NotDetected)
== END 2023-11-17 18:24 | disposition home or self-care (01) ==
PROVIDERS: Physician Assistant; Emergency Provider Student in an Organized Health Care Education/Training Program; PCP Family Medicine
DX: R41.0 Disorientation, unspecified (principal); R53.1 Weakness; R05.9 Cough, unspecified; I25.10 Atherosclerotic heart disease of native coronary artery without angina pectoris; I42.9 Cardiomyopathy, unspecified; J44.9 Chronic obstructive pulmonary disease, unspecified; F03.90 Unspecified dementia, unspecified severity, without behavioral disturbance, psychotic disturbance, mood disturbance, and anxiety; I10 Essential (primary) hypertension; E78.5 Hyperlipidemia, unspecified; I25.2 Old myocardial infarction; F17.210 Nicotine dependence, cigarettes, uncomplicated
CPT/HCPCS: 70450; 71046; 80053; 81001; 84484; 85025; 85378; 85610; 87636; 99285

== ENCOUNTER 2023-12-03 08:35 | Outpatient (CLI) | payer MEDICARE, OTHER, SELFPAY ==
--- NOTE | 2023-12-03 | CA_ITS ---
FINAL REPORT CLINICAL HISTORY: HTN, HLD, DM, smoker, CAD, previous carotid duplex 04/26/23 (normal MAGALIS, LICA 50-69% stenosis), JOHAN COMPARISON: None FINDINGS: RIGHT CAROTID: CCA PSV - 36 cm/sec ICA PSV - 89 cm/sec ICA/CCA PSV ratio: 2.5 . Comments: Mild plaque disease is noted. LEFTCAROTID: CCA PSV - 75. cm/sec ICA PSV - 144. cm/sec ICA/CCA PSV ratio - 1.9 . Comments: Mild plaque disease is noted. Antegrade flow is seen within the vertebral arteries. IMPRESSION: Carotid stenosis classified less than 50% bilaterally Reviewed, Interpreted and Dictated by Coby Landers MD Transcribed by CHIKA Chapman Authenticated and [facility]
== END 2023-12-03 23:59 ==
LOC: RT 08:35
PROVIDERS: PCP Family Medicine; Visit Provider Physician Assistant
DX: I65.23 Occlusion and stenosis of bilateral carotid arteries (principal)
CPT/HCPCS: 93880

== ENCOUNTER 2023-12-23 07:50 | Outpatient (CLI) | payer MEDICARE, OTHER, SELFPAY ==
--- NOTE | 2023-12-23 07:55 | CA_ITS ---
APPROVED REPORT EXAM: Comprehensive 2D, Doppler, and color-flow Echocardiogram Traffic Control Officer: Teresa Acevedo RDCS Ht: 5 ft 7 in Wt: 156lbs BSA: 1.82 BP: 105/63 mmHg Indications: CAD,RBBB,COPD M-Mode Dimensions RVDd 1.50 cm (0.9-2.6) LA Diam 3.59 cm (1.9-4.0) LVDd 5.54 cm (3.5-5.7) LVDs 3.97 cm (3.5-5.7) IVSd 1.07 cm (0.6-1.1) PWd 1.07 cm (0.6-1.1) EF (Teich) 54.10% FS 28.30% EDV (Teich) 149.90 mL TAPSE 1.41 (<1.7) ESV (Teich) 68.80 mL LV Diastology E Decel Time 193 (160-240 msec) E/A Ratio 1.0 Mitral Valve MV E Max Pato. 50.0 (40-130 cm/s) MV A Velocity 50.0 (40-130 cm/s) E/A Ratio 1.02 MV PHT 57.0 ms Left Ventricle The left ventricle is normal size. The left ventricular systolic function is normal. The left ventricular ejection fraction is within the normal range. There is increased LV wall thickness. There is normal LV segmental wall motion. Diastolic function is indeterminate. LVEF is 55%. Right Ventricle The right ventricle is normal size. The right ventricle is mildly hypokinetic. Atria The left atrium size is normal. The right atrium size is normal. There is no Doppler evidence of interatrial shunt. Aortic Valve The aortic valve is mildly thickened. There is no aortic valvular stenosis. No aortic regurgitation is present. Mitral Valve The mitral valve leaflets are mildly thickened. No evidence of mitral valve stenosis. Mild mitral regurgitation. The MR jet is eccentric, and severity may be underestimated. Tricuspid Valve The tricuspid valve leaflets are thin and pliable. Trace tricuspid regurgitation. There is insufficient TR jet to estimate RVSP. Pulmonic Valve The pulmonary valve is normal in structure. Trace pulmonic regurgitation. Great Vessels The aortic root is normal in size. The ascending aorta is normal in size. IVC is normal in size and collapses >50% with inspiration. Pericardium There is no pericardial effusion. Other Information Study Quality: Fair Conclusion Normal LV systolic function. Normal RV size with mildly reduced RV systolic function. Mild mitral regurgitation. The MR jet is eccentric, and severity may be underestimated. Electronically signed by : Rosa Parsons MD 12/26/2023 22:40:18
== END 2023-12-23 23:59 ==
LOC: RT 07:51
PROVIDERS: PCP Family Medicine; Visit Provider Nurse Practitioner
DX: I50.20 Unspecified systolic (congestive) heart failure (principal); R06.09 Other forms of dyspnea; R94.31 Abnormal electrocardiogram [ECG] [EKG]
CPT/HCPCS: 93306

== ENCOUNTER 2024-03-17 15:00 | Outpatient (CLI) | payer MEDICARE, OTHER, SELFPAY ==
[2024-03-17 15:27] LABS: Basophils # 0.1 K/mm3 (0-0.2); Basophils % 0.9 % (0.1-2.0); Eosinophils # 0.3 K/mm3 (0.0-0.4); Eosinophils % 4.2 % (0.1-12.0); Hemoglobin 14.7 g/dL (14.1-18.0); Lymphocytes # 2.3 K/mm3 (0.7-4.5); Lymphocytes % 31.8 % (10-50); Mean Corpuscular HGB Conc 33.5 g/dL (31.8-35.4); Mean Corpuscular Hemoglobin 30.5 pg (27.0-31.2); Mean Corpuscular Volume 91.2 fl (80-94); Mean Platelet Volume 9.7 fl (7.4-10.4); Monocytes # 0.5 K/mm3 (0.1-1.0); Monocytes % 7.6 % (1.7-9.3); Neutrophils % 55.5 % (37.0-80.0); Platelet Count 200 K/mm3 (142-424); Red Blood Count 4.82 M/mm3 (4.60-6.20); Red Cell Distribution Width 15.1 % (11.5-17.5); White Blood Count 7.2 K/mm3 (4.8-10.8)
[2024-03-17 16:08] LABS: Alanine Aminotransferase 16 U/L (12-78); Albumin Level 3.4 g/dl (3.5-5.0); Albumin/Globulin Ratio 1.5 (1.1-1.8); Alkaline Phosphatase 95 U/L (38-126); Anion Gap 9.7 mEq/L (5-15); Aspartate Amino Transferase 25 U/L (17-59); Bilirubin,Total 0.6 mg/dl (0.2-1.3); Blood Urea Nitrogen 13 mg/dl (9-20); Carbon Dioxide 26 mmol/L (22.0-30.0); Chloride 108 mmol/L (98-107); Estimated Glomerular Filt Rate 31 ml/min (>60); GFR (African American) 37 ML/MIN (>60); Globulin 2.3 g/dL (1.3-3.2); Glucose 71 mg/dl (74-100); Potassium 3.7 mmoL/L (3.5-5.1); Sodium 140 mmol/L (136-145); Total Protein,Serum 5.7 g/dl (6.3-8.2)
[2024-03-17 17:16] LABS: Folate 7.95 ng/mL; Vitamin B12 > 1000 pg/mL (239-931)
[2024-03-27 10:09] LABS: 1,25 Dihydroxy Vitamin D 23 pg/mL (.); 1,25-Dihydroxy, Vitamin D-2 <10 pg/mL (.); 1,25-Dihydroxy, Vitamin D-3 23 pg/mL (.)
== END 2024-03-17 23:59 | disposition home or self-care (01) ==
LOC: LAB 15:02
PROVIDERS: PCP Family Medicine; Visit Provider Dermatology
DX: E52 Niacin deficiency [pellagra] (principal); L21.8 Other seborrheic dermatitis; L85.3 Xerosis cutis; L20.89 Other atopic dermatitis; Z68.23 Body mass index [BMI] 23.0-23.9, adult
CPT/HCPCS: 36415; 80053; 82607; 82652; 82746; 84207; 84630; 85025

== ENCOUNTER 2025-03-27 11:54 | Outpatient (CLI) | payer MEDICARE, OTHER, SELFPAY ==
--- OUTSIDE RECORDS SUMMARY | 2025-03-27 11:56 | XMS_ITS | Clinical Summary ---
Author Organization [facility] ([place], [place], [place], [place]) [address] [facility] [place] [address] Care Team Providers Care Train Conductor Name Role Phone Unavailable Primary Care Provider Unavailabl e Social History Tobacco Use Types Packs/Day Years Used Date Smoking Tobacco: Never Assessed Family and Community Support Answer Cesar e Recorded Help with Day to Day Activities Not on file 09/17/2023 Feeling Lonely or Isolated Not on file 09/17 Educational Attainment Answer Date Naga rded Speak language other than Greek at home Not on file 09/17/2023 Want help with school or training Not on file 09/17/2023 Substance Use Answer Date Recorded Used prescription meds for non-medical reasons N ot on file 09/17/2023 Used illegal drugs past 12 months Not on file 09/17/2023 Sex and Gender Information Value Date Recorded Sex Assigned at Not on file Legal Sex Male 4:18 PM CDT Gender Identity Not on file Sexual Orientation Not on file Plan of Treatment Health Maintenance Due Date Last Done Comments Medicare Initial AWV G0438 Depression Screening (12+) 1959 Tobacco Cessation Counseling and Screening (12+) 09/12 Hepatitis C Screening 1965 DTAP/TDAP/TD VACCINES (1 - Tdap) 1966 Pneumococcal 50+ years (1 of 1 - PCV) 1997 Shingles Vaccine (Zoster) (1 of 2) 1997 Respiratory Syncytial Virus (RSV) Adult or (1 - 1-dose 75+ series) 2022 COVID-19 VACCINE (1 - 2023-25 season) 2024 Falls Risk Screening 09/06/2024 Influenza Vaccine (#1) 2025 Colonoscopy Discontinued 06/17/2022 Colorectal Cancer Screening Discontinued CT Colonography Discontinued FOBT/FIT Discontinued Fit-DNA (Cologuard) Discontinued Sigmoidoscopy Discontinued Insurance [facility] MEDIC[facility] PART A B
--- OUTSIDE RECORDS SUMMARY | 2025-03-27 11:56 | XMS_ITS | Clinical Summary ---
Author Organization [facility] Address [address] [place] [address] Care Team Providers Care Ship Joiner Name Role Phone Jazlyn Schilling ANAHI Primary Care Provider [phone] Allergies Active Allergy Reactions Criticality Noted Date Comments Azathioprine Other (See Comments) Medium 11/29/2017 blisters Methotrexate Derivatives Other (See Comments) Medium 0 11/29/2017 Blisters Penicillins Swelling High 11/29/2017 Medications losartan (COZAAR) 25 MG tablet Take 25 mg by mouth. Recently stopped b/c b/p was too low Active allopurinol (ZYLOPRIM) 100 MG tablet Take 100 mg by mouth Daily As Needed. Active aspirin 81 MG chewable tabletIndicatio ns:pt to resume on Wednesday Chew 81 mg Daily. Active clopidogrel (PLAVIX) 75 MG tabletIndicatio ns:pt to resume on Wednesday Take 75 mg by mouth Daily. Active nitrofurantoin (MACRODANTIN) 100 MG capsule Take 100 mg by mouth 4 (Four) Times a Day. 11/23/2017 Active atorvastatin (LIPITOR) 40 MG tablet Take 40 mg by mouth Daily. Active sulfamethoxazol e-trimethoprim (BACTRIM DS,SEPTRA DS) 800-160 MG per tablet Take 1 tablet by mouth 2 (Two) Times a Day. rx from Dr Wheat 11/18/2017 Active amitriptyline (ELAVIL) 50 MG tablet Take 100 mg by mouth Every Night. Active megestrol (MEGACE) 40 MG tablet Take 40 mg by mouth 3 (Three) Times a Day. Active levoFLOXacin (LEVAQUIN) 500 MG tablet Take 1 tablet by mouth Daily. 3 tablet 12/03/2017 4:27 PM EDT 12/03/2017 Active Active Problems Problem Noted Date Diagnosed Date BPH (benign prostatic hyperplasia) 12/02/2017 Social History Tobacco Use Types Packs/Day Years Used Date Smoking Tobacco: Every Day Cigarettes 0.5 45 Smokeless Tobacco: Never Alcohol Use Standard Drinks/Week Comments No 0 (1 standard drink = 0.6 oz pur e alcohol) Abuse Screen Answer Date Recorded Unsafe at Home or Work/School Not on file Feels Threatened by Someone? Not on file 06/2023 Does Anyone Keep You from Co ntacting Others or Doint Things Outside the Home? Not on file 06/15/2023 Physical Sign of Abuse Present Not on file 1 Housing Stability Answer Date Recorded Current Living Arrangements Not on file 06/06 Potentially Unsafe Housing Conditions Not on raul e 06/15/2023 Family and Community Support Answer Cesar e Recorded Help with Day-to-Day Activities Not on file 06/15/2023 Lonely or Isolated Not on file 06/15/2023 Employment Answer Date Recorded Do you want help finding or keeping work or a vonda b? Not on file 06/15/2023 Disabilities Answer Date Recorded Concentrating, Remembering, or Making Decisions Difficulty Not on file 06/15/2023 Doing Errands Independently Difficulty Not on fi le 06/15/2023 Education Answer Date Recorded Help with school or training? Not on file Preferred Language Not on file 06/15/2023 Sex and Gender Information Value Date Recorded Sex Assigned at Not on file Legal Sex Male 1:39 PM EDT Gender Identity Not on file Sexual Orientation Not on file Last Filed Vital Signs Vital Sign Reading Time Taken Comments Blood Pressure 127/76 12/03/2017 11:46 AM EDT Pulse 92 12/03/2017 11:46 AM EDT Temperature 37 C (98.6 F) 12/03/2017 11:46 AM EDT Respiratory Rate 16 12/03/2017 11:46 AM EDT Oxygen Saturation 99% 12/03/2017 11:46 AM EDT Inhaled Oxygen Concentration - - Weight 66.4 kg (146 lb 6.2 oz) 12/02/2017 1:21 P M EDT Height 174 cm (5' 8.5 ) 12/02/2017 1:21 PM EDT Body Mass Index 21.93 12/02/2017 1:21 PM EDT Plan of Treatment Health Maintenance Due Date Last Done Comments TDAP/TD VACCINES (1 - Tdap) 1966 COLOGUARD 1992 COLON CANCER SCREENING 5 YEAR SIGMOIDOSCOPY 1992 COLONOSCOPY [address] SCREEN[address] COLONOGRAPHY 1992 FECAL OCCULT BLOOD TEST 1992 FIT Testing (1 year) 1992 Pneumococcal Vaccine 50+ (1 of 1 - PCV) 1997 ZOSTER VACCINE (1 of 2) 1997 ANNUAL PHYSICAL 11/29/2017 HEPATITIS C SCREENING 11/29/2017 RSV Vaccine - Adults (1 - 1-dose 75+ series) COVID-19 Vaccine ( - season) 2024 INFLUENZA VACCINE 06/06/2025 Medical Devices Implanted Type Area Hardware Installation Coordinator Device Identifier Shelf Expiration Date Model / Serial / Lot Stent X 3 Stent Description:Total of 3 coron freddie artery stents Insurance MEDICARE A & B [employer] [facility] Advance Directives * Full Code (Latest Code Status on File) Date Activated Date Inactivated Comments 12/02/2017 5:32 PM 12/03/2017 6:45 PM Care Teams Ship Joiner Relationship Specialty Start Date End Date Jazlyn Schilling, WEB MERCHANT [id number] [id number] PCP - General Family Medicine 11/29/17
--- OUTSIDE RECORDS SUMMARY | 2025-03-27 11:56 | XMS_ITS | Clinical Summary ---
Author Organization [facility] Address [address] [place] [address] Care Team Providers Care Senior Safety Management Consultant Name Role Phone Mook Millan MD Primary Care Provider + [phone] Allergies Active Allergy Reactions Criticality Noted Date Comments Penicillins Swelling,Unknown - P atient states they do not know rxn details High 11/18/2016 Medications tobramycin-dexa methasone (Tobradex) ophthalmic suspension INSTILL 1 DROP INTO EACH EYE THREE TIMES DAILY FOR 2 MONTHS. 2 Active metoprolol succinate XL (Toprol-XL) 25 MG 24 hr tablet Take 25 mg by mouth 1 (one) time each day. 2 Active losartan (Cozaar) 25 MG tablet Take 25 mg by mouth 1 (one) time each day. 2 Active levothyroxine (Synthroid, Levoxyl) 50 MCG tablet Take 50 mcg by mouth 1 (one) time each day. 1 Active hydrOXYzine pamoate (Vistaril) 25 MG capsule TAKE ONE CAPSULE BY MOUTH THREE TIMES DAILY NEEDED FOR anxiety/itching/ insomnia 1 Active glipiZIDE (Glucotrol) 10 MG tablet TAKE ONE TABLET BY MOUTH EVERY DAY BEFORE a meal 2 Active escitalopram (Lexapro) 5 MG tablet Take 5 mg by mouth 1 (one) time each day. 1 Active erythromycin (Romycin) 5 MG/GM ophthalmic ointment APPLY 1 WITH MEALS RIBBON INTO THE LOWER CONJUNCTIVAL SAC IN BOTH EYES BY OPHTHALMIC ROUTE 2 TIMES PER DAY 2 Active cyanocobalamin 1000 MCG tablet Take 1,000 mcg by mouth 1 (one) time each day. 2 Active clopidogrel (Plavix) 75 MG tablet Take 75 mg by mouth 1 (one) time each day. 2 Active atorvastatin (Lipitor) 80 MG tablet Take 80 mg by mouth every night. 1 Active Aspirin Low Dose 81 MG EC tablet Take 81 mg by mouth 1 (one) time each day. 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 Family History Medical History Relation Name Comments Coronary artery disease Other 1 Heart failure Other 2 Relation Name Status Comments Other 1 Other 2 Social History Tobacco Use Types Packs/Day Years Used Date Smoking Tobacco: Every Day Sex and Gender Information Value Date Recorded Sex Assigned at Not on file Legal Sex Male 8:56 PM EDT Gender Identity Not on file Sexual Orientation Not on file Last Filed Vital Signs Vital Sign Reading Time Taken Comments Blood Pressure - - Pulse - - Temperature - - Respiratory Rate - - Oxygen Saturation - - Inhaled Oxygen Concentration - - Weight 72.6 kg (160 lb 0.2 oz) 01/12/2017 10:20 AM EDT Height 177.8 cm (5' 10 ) 01/12/2017 10:20 AM EDT Body Mass Index 22.96 01/12/2017 10:20 AM EDT Plan of Treatment Health Maintenance Due Date Last Done Comments [facility]-Depression Screening 1945 [facility]-/Child/Adol SDOH Screenings 1945 [facility]- SDOH Screenings 1965 [facility]-Adult SDOH Screenings 1965 [facility]-Zoster Vaccines (1 of 2) 1997 [facility]-DTaP,Tdap,and Td Vaccines (1 - Tdap) 01/14/2019 01/13/2019 [facility]-Pneumococcal Vaccine: 50+ Years (2 of 2 - PCV) 01/14/2020 01/13/2019 [facility]-RSV Vaccine: 60+ Years or (1 - 1-dose 75+ series) 2022 [id number] Vaccine (4 - season) 2024 06/05/2021, 11/28/2020, 10/31/2020 [facility]-Influenza Vaccine (#1) 05/07/202507/29, 07/04/2020, 11/14/2019 HPV Vaccines Aged Out No longer eligi ble based on patient's age to complete this topic [facility]-HIB Vaccines Aged Out No longer e ligible based on patient's age to complete this topic [facility]-Hepatitis A Vaccines Aged Out No longer eligible based on patient's age to complete this topic [facility]-IPV Vaccines Aged Out No longer e ligible based on patient's age to complete this topic [facility]-Rotavirus Vaccines Aged Out No lo nger eligible based on patient's age to complete this topic Insurance MEDICARE Member Subscriber Plan / Payer (Ef fective 2012-Present) Name:Jeffery Slater Member ID:[id number] Relation to Subscriber:Self Name:Jeffery Slater Subscriber ID:[id number] Payer ID:MEDICARE Group ID:Not on file Type:Medicare Address: [address] [facility] Care Teams Senior Safety Management Consultant Relationship Specialty Start Date End Date Mook Millan MD [address] [place] [address] [place] [address] PCP - General 01/17/21
--- OUTSIDE RECORDS SUMMARY | 2025-03-27 11:56 | XMS_ITS | Encounter Summary ---
Author Organization Healthcare Address [address] 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) Social History Tobacco Use Types Packs/Day Years Used Date Smoking Tobacco: Every Day Sex and Gender Information Value Date Recorded Sex Assigned at Not on file Legal Sex Male 8:56 PM EDT Gender Identity Not on file Sexual Orientation Not on file documented as of this encounter Plan of Treatment Not on file documented as of this encounter Visit Diagnoses Diagnosis 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
--- OUTSIDE RECORDS SUMMARY | 2025-03-27 11:56 | XMS_ITS | Referral Summary ---
Author Organization [facility] ([place], [place], [place], [place]) Address [address] [place] [address] Care Team Providers Care Money Laundering Investigator Name Role Phone Unavailable Primary Care Provider Unavailabl e Social History Tobacco Use Types Packs/Day Years Used Date Smoking Tobacco: Never Assessed Family and Community Support Answer Cesar e Recorded Help with Day to Day Activities Not on file 09/17/2023 Feeling Lonely or Isolated Not on file 09/17 Educational Attainment Answer Date Naga rded Speak language other than Afghan at home Not on file 09/17/2023 Want [...] Orientation Not on file Plan of Treatment Not on file Insurance [facility] MEDICARE PART A B
[2025-03-27 12:31] LABS: Occult Blood,Stool Negative (Negative)
== END 2025-03-27 23:59 | disposition home or self-care (01) ==
PROVIDERS: PCP Family Medicine; Visit Provider Family Medicine
DX: R19.7 Diarrhea, unspecified (principal)
CPT/HCPCS: 82272; 87045; G0328